=== PATIENT | female | born 1935 | race Caucasian/White ===

== ENCOUNTER → 2016-05-12 | Day surgery (SDC) | payer OTHER ==
[2016-04-29 10:51] VITALS: Ht 170.2 cm; Wt 62.7 kg
[~2016-05-12] VITALS: Ht 170.2 cm; Wt 62.7 kg
[~2016-05-12] MED LIST: 500ML BSS 0.3ML EPI 1:1000PF IRRIG ONE; ACETAMINOPHEN 325 MG TAB PO PRN; AMVISC PLUS 0.8ML SYRINGE INT OCU ONE; ASPI81TA28 PO; ATROPINE SULFATE 0.1 MG/ML 5ML SYR IV PRN; BETAXOLOL HCL 0.25% OP SUSP PER DROP CHARGE OPR SCH; BRIMONIDINE TART 0.2% OP SOLN PER DROP CHARGE ONE; BSS FLUSH ONE; CALC250T8 PO; CHOL1CAP67 PO; CHOL20009 PO; CYAN500T PO; DORZ2SOL17 OPR; ENDOCOAT 0.85ML SYRINGE INT OCU ONE; EpHEDrine SULFATE INJ 50 MG/ML AMP IV PRN; EpINEphrine INJ 1MG/ML AMP 1 MG/ML AMP ONE; LACTATED RINGER'S 1000ML 500 ML IV SCH; LIDOCAINE 4% OP SOLN DROP CHARGE ONE; LIDOCAINE 4% OP SOLN DROP CHARGE OPR SCH; LIDOCAINE HCL 1% MPF 2 ML VIAL ONE; LISI-787 PO; LISI20TA3 PO; LORA-741 PO; METO50TA16 PO; MIDAZOLAM HCL 1 MG/ML 2ML VIAL ONE; MIX: 4ML BSS 1ML EPI 1:1000 PF INSTIL ONE; MOXIFLOXACIN OPH SOLN PER DROP CHARGE ONE; NTRGSL/4 UT; OCUCOAT 1 ML SOLN IO ONE; POVIDONE-IODINE OP SOLN 30 ML BTL ONE; PRAV80TA2 PO; PRD/25 PO; PRED10TA PO; PROPARACAINE 0.5% OP SOLN PER DROP CHARGE OPR SCH; TOBRAMYCIN/DEXAMETHASONE OPH OINT PER APPLN CHARGE ONE
--- NOTE | 2016-05-12 07:36 | History & Physical Bridge - SC ---
H&P Re-Evaluation Bridge Note: I have examined the patient, reviewed the History & Physical and in the interval since the performance of the History & Physical I have noted the following changes of clinical significance: No changes noted
[2016-05-12] MEDS: PHENYLEPHRINE HCL 2.5% OP SOLN PER DROP CHARGE OPR SCH ×2 (07:44→07:49)
[2016-05-12] MEDS: TROPICAMIDE 1% OP SOLN PER DROP CHARGE OPR SCH ×2 (07:45→07:50)
[2016-05-12] MEDS: CYCLOPENTOLATE HCL 1% OP SOLN PER DROP CHARGE OPR SCH ×2 (07:46→07:51)
[2016-05-12] MEDS: MOXIFLOXACIN OPH SOLN PER DROP CHARGE OPR SCH ×2 (07:47→07:57)
--- NOTE | 2016-05-12 08:39 | Discharge Instructions-SurgCtr ---
Discharge Instructions Visit Reason for Visit: Cataract Right Eye Discharge Discharge Diagnosis / Problem: lens implant right eye Discharge Goals Goal(s): Improve function Activity Recommendations Activity Limitations: resume your previous activity Lifting Limitations: no more than 10 pounds Exercise/Sports Limitations: gradually increase as tolerated May Resume Sexual Activity: when tolerated Shower/Bathe: tomorrow Driving or Machine Use: resume 1 day after discharge Anesthesia . Post Anesthesia Instructions: If you have had General Anesthesia or IV Sedation: * Do not drive today. * Resume driving when surgeon permits. * Do not make important decisions or sign legal documents today. * Call surgeon for: 1. Temperature elevations greater than 101 degrees F. 2. Uncontrollable pain. 3. Excessive bleeding. 4. Persistent nausea and vomiting. 5. Medication intolerance (nausea, vomiting or rash). * For nausea and vomiting use only clear liquids such as: tea, soda, bouillon until nausea subsides, then gradually increase diet as tolerated. * If you have any concerns or questions, call your surgeon's office. If physician is unavailable and it is an emergency, call 911 or go to the nearest emergency room. . Instructions / Follow-Up Instructions / Follow-Up ACTIVITY RECOMMENDATIONS: * Light activities. * Mild irritation and blurred vision are common for the first few days. * You may walk outside, read, watch television. * Redness around the white part of the eye is common. MEDICATIONS: Resume previous medications unless instructed otherwise by your surgeon. Start all eye drops at 1 pm today: * Eye drops (today and tomorrow): Prednisone - one drop in operative eye every 3 hours while awake Ofloxacin - one drop in operative eye every 3 hours while awake SPECIAL CARE INSTRUCTIONS: * Tape plastic shield over eye to sleep at night. Call your doctor at with any concerns or problems. FOLLOW UP VISIT: Follow-up with Dr Parsons at [facility] office as scheduled. Diet Recommendations Home Diet: no limitations Procedures Procedures Performed: cataract extraction with lens implant Pending Studies Studies pending at discharge: no Medical Emergencies . Who to Call and When: Medical Emergencies: If at any time you feel your situation is an emergency, please call 911 immediately. . Non-Emergent Contact Non-Emergency issues call your: Facilities Assistant Call Non-Emergent contact if: your pain is not controlled [phone] . . "Provider Documentation" section prepared by Gigi Parsons.
--- NOTE | 2016-05-12 08:40 | [facility] Operative Report ---
Operative Report 1. PREOPERATIVE DIAGNOSIS: Senile nuclear cataract, right eye. 2. POSTOPERATIVE DIAGNOSIS: Senile nuclear cataract, right eye. 3. PROCEDURE: Phacoemulsification of right cataract with posterior chamber lens implant, type [employer], model MX60, power +21.0 diopters. ANESTHESIA: Local standby. SURGEON: Dr. Parsons. COMPLICATIONS: None. OPERATING TIME: 10 minutes. 4. OPERATION AND FINDINGS: DESCRIPTION OF PROCEDURE: The right pupil was dilated. The anesthetic was administered using a topical technique. The right eye was prepped and draped. A speculum was placed. A clear corneal incision was formed. The chamber was filled with Amvisc Plus and Endocoat. Epinephrine solution was used. A paracentesis was placed. A capsulorrhexis was performed. The nucleus was hydrodissected. The lens was removed with phacoemulsification. Time was 4.25 seconds. The aspiration unit was used to remove the cortex. The capsule was filled with Amvisc Plus. The lens implant was folded and placed into the capsule. The incision was hydrated. The Amvisc was aspirated. The wound was secure. The chamber was deep. The pupil was round. TobraDex ointment and Vigamox solution were placed. The speculum was removed. The patient was returned to the Recovery Room in stable condition. I attest to the content of the Intraoperative Record and any orders documented therein. Any exceptions are noted below. The scribe's documentation has been prepared in my presence, under my direction and personally reviewed by me in its entirety. I confirm that the note above accurately reflects all work, treatment, procedures, and medical decision making performed by me. I personally scribed for Gigi Parsons M.D. ([email or web address]) on 05/12/16 at 08:40. Electronically submitted by Caryn Esposito ([email or web address]).
[2016-05-12 08:44] VITALS: TEMP 36.8
[2016-05-12 09:01] VITALS: BP 151/68; PULSE 74; O2SAT 97
--- NOTE | 2016-05-12 09:03 | Anesthesia Progress Nt - [facility] ---
Anesthesia Post Op Note Date & Time May 12, 2016 at 09:04 Vital Signs Pain Intensity: 0 Vital Signs Past 12 Hours Date Time Temp Pulse Resp B/P Pulse Ox O2 Delivery O2 Flow Rate FiO2 05/12/16 08:44 36.8 76 16 130/83 97 Room Air 05/12/16 07:32 36.5 68 22 160/95 98 Room Air Notes Mental Status: alert / awake / arousable, participated in evaluation Pt Amnestic to Procedure: Yes Nausea / Vomiting: adequately controlled Pain: adequately controlled Airway Patency, RR, SpO2: stable & adequate BP & HR: stable & adequate Hydration State: stable & adequate Anesthetic Complications: no major complications apparent
== END | disposition home or self-care (01) ==
LOC: X.SURG 07:11
PROVIDERS: ATTEND Specialist
DX: H25.11 Age-related nuclear cataract, right eye (principal); I10 Essential (primary) hypertension; I25.2 Old myocardial infarction; Z68.21 Body mass index [BMI] 21.0-21.9, adult; Z88.2 Allergy status to sulfonamides

== ENCOUNTER → 2016-05-29 | Outpatient (CLI) | payer OTHER ==
[~2016-05-29] MED LIST changes: -500ML BSS 0.3ML EPI 1:1000PF IRRIG ONE; -ACETAMINOPHEN 325 MG TAB PO PRN; -AMVISC PLUS 0.8ML SYRINGE INT OCU ONE; -ATROPINE SULFATE 0.1 MG/ML 5ML SYR IV PRN; -BETAXOLOL HCL 0.25% OP SUSP PER DROP CHARGE OPR SCH; -BRIMONIDINE TART 0.2% OP SOLN PER DROP CHARGE ONE; -BSS FLUSH ONE; -ENDOCOAT 0.85ML SYRINGE INT OCU ONE; -EpHEDrine SULFATE INJ 50 MG/ML AMP IV PRN; -EpINEphrine INJ 1MG/ML AMP 1 MG/ML AMP ONE; -LACTATED RINGER'S 1000ML 500 ML IV SCH; -LIDOCAINE 4% OP SOLN DROP CHARGE ONE; -LIDOCAINE 4% OP SOLN DROP CHARGE OPR SCH; -LIDOCAINE HCL 1% MPF 2 ML VIAL ONE; -MIDAZOLAM HCL 1 MG/ML 2ML VIAL ONE; -MIX: 4ML BSS 1ML EPI 1:1000 PF INSTIL ONE; -MOXIFLOXACIN OPH SOLN PER DROP CHARGE ONE; -OCUCOAT 1 ML SOLN IO ONE; -POVIDONE-IODINE OP SOLN 30 ML BTL ONE; -PROPARACAINE 0.5% OP SOLN PER DROP CHARGE OPR SCH; -TOBRAMYCIN/DEXAMETHASONE OPH OINT PER APPLN CHARGE ONE
== END ==
LOC: C.LAB 08:01
PROVIDERS: ATTEND Internal Medicine
DX: M35.3 Polymyalgia rheumatica (principal)

== ENCOUNTER → 2016-07-08 | Outpatient (CLI) | payer OTHER | END | disposition home or self-care (01) | LOC: C.LAB 08:07 | PROVIDERS: ATTEND Internal Medicine | DX: M25.50 Pain in unspecified joint (principal); M35.3 Polymyalgia rheumatica; M79.1 Myalgia ==

== ENCOUNTER → 2016-08-20 | Outpatient (CLI) | payer OTHER ==
--- NOTE | 2016-08-20 16:16 | MAMMOGRAPHY REPORT ---
BILATERAL DIGITAL SCREENING MAMMOGRAM WITH CAD: 08/20/2016 CLINICAL HISTORY: Routine screening. Patient has no complaints. TECHNIQUE: Current study was also evaluated with a Computer Aided Detection (CAD) system. Bilateral CC and MLO views were obtained. COMPARISON: Comparison is made to exams dated: 08/12/2015 mammogram, 08/08/2014 mammogram, 07/10/2013 m ammogram, 06/27/2012 mammogram, 06/23/2011 mammogram, and 05/21/2010 mammogram - [facility] er. BREAST COMPOSITION: The tissue of both breasts is heterogeneously dense, which may obscure small mas ses. FINDINGS: No suspicious masses, calcifications, or areas of architectural distortion are noted in ei ther breast. There has been no significant interval change compared to prior exams. Scattered bilater al benign-appearing calcifications are not significantly changed. Nodular asymmetry in the right sup erior posterior breast is stable dating back to at least the 2007 exam. IMPRESSION: ACR BI-RADS CATEGORY 2: BENIGN There is no mammographic evidence of malignancy. A 1 year screening mammogram is recommended. The pa tient will receive written notification of the results. Approximately 10% of breast cancers are not detected with mammography. A negative mammographic report should not delay biopsy if a clinically suggestive mass is present. Briana Jones M.D. /:08/20/2016 15:29:29 Planer Operator: Estela TUCKER(Ailn)(Hui), [facility] letter sent: Normal 1/2 BI-RADS Code: ACR BI-RADS Category 2: Benign
== END | disposition home or self-care (01) ==
LOC: C.MAMM 10:00
PROVIDERS: ATTEND Internal Medicine
DX: Z12.31 Encounter for screening mammogram for malignant neoplasm of breast (principal)

== ENCOUNTER → 2016-09-03 | Outpatient (CLI) | payer OTHER | END | disposition home or self-care (01) | LOC: C.LAB 07:34 | PROVIDERS: ATTEND Internal Medicine | DX: M35.3 Polymyalgia rheumatica (principal) ==

== ENCOUNTER 2016-10-07 07:09 | Emergency (ER) | payer OTHER ==
[~2016-10-07] VITALS: Ht 170.2 cm; Wt 61.5 kg
[~2016-10-07 07:09] MED LIST changes: -CALC250T8 PO; -CHOL1CAP67 PO; -CYAN500T PO; -LISI20TA3 PO; -PRD/25 PO
[2016-10-07 07:12] VITALS: TEMP 36.8; Ht 170.2 cm; Wt 61.5 kg
[2016-10-07 07:43] VITALS: O2SAT 97
[2016-10-07 07:55] LABS: POINT OF CARE TROPONIN I < 0.030 ng/ml (0-0.045)
[2016-10-07] MEDS ORDERED: CYAN500T PO (07:58)
[2016-10-07] MEDS ORDERED: CHOL1CAP67 PO (07:58)
[2016-10-07] MEDS ORDERED: CALC250T8 PO (07:58)
[2016-10-07] MEDS ORDERED: LISI20TA3 PO (07:58)
[2016-10-07 07:59] LABS: ALT/SGPT 18 U/L (12-78); BLOOD UREA NITROGEN 23 mg/dl (7-18); BUN/CREATININE RATIO 21.3 (10-20); CALCIUM 9.5 mg/dl (8.5-10.1); CARBON DIOXIDE 29 mmol/L (21-32); CHLORIDE 106 mmol/L (98-107); GLUCOSE 106 mg/dl (70-99); POTASSIUM 3.9 mmol/L (3.5-5.1); SODIUM 140 mmol/L (136-145)
[2016-10-07] MEDS ORDERED: NTRGSL/4 UT (08:01)
[2016-10-07] MEDS ORDERED: METO50TA16 PO ×2 (08:01)
[2016-10-07] MEDS ORDERED: LISI-787 PO (08:01)
[2016-10-07] MEDS ORDERED: CHOL20009 PO (08:01)
[2016-10-07] MEDS ORDERED: PRD/25 PO (08:02)
--- NOTE | 2016-10-07 08:04 | DIAGNOSTIC IMAGING REPORT ---
CHEST ONE VIEW PORTABLE CLINICAL HISTORY: 81 years-old Female presenting with Evaluate Fever/Sepsis. TECHNIQUE: Portable upright AP view of the chest was obtained. COMPARISON: CT from 2015. FINDINGS: Atherosclerosis of the aortic arch. Prominence of the main pulmonary artery. Mild prominence of pulmonary vasculature. Ill-defined hazy basilar opacities. No effusion or pneumothorax. Sclerotic lesion left humeral head is unchanged prior exam has a somewhat certain margin, indeterminate but stable. Upper abdomen normal. IMPRESSION: 1. Hazy bibasilar opacities. These could represent infection, aspiration, or mild pulmonary edema. 2. Cardiomegaly. Electronically signed by: Brad Whyte M.D. 10/07/2016 8:02 AM Dictated Date/Time: 10/07/2016 8:00 AM
[2016-10-07 08:12] LABS: ALKALINE PHOSPHATASE 75 U/L (45-117); AST/SGOT 17 U/L (15-37); CKMB/CK RATIO 2.8 (0-3.0); HEMATOCRIT 41.8 % (37-47); MEAN CELL VOLUME 91.3 fL (80-100); MEAN CORPUSCULAR HEMOGLOBIN 31.2 pg (25-34); MEAN CORPUSCULAR HGB CONC 34.2 g/dl (32-36); MEAN PLATELET VOLUME 12.7 fL (7.4-10.4); PLATELET COUNT 119 K/uL (130-400); RED BLOOD COUNT 4.58 M/uL (4.2-5.4); WHITE BLOOD COUNT 7.59 K/uL (4.8-10.8)
[2016-10-07 08:13] LABS: INR 0.9 (0.9-1.1)
[2016-10-07 08:24] LABS: BASO % 0.8 %; BASO ABS # 0.06 K/uL (0-0.2); COMPLETE YES; EOS % 0.7 %; IG% 0.1 %; LYMPH % 16.2 %; LYMPH ABS # 1.23 K/uL (1.2-3.4); MONO % 7.1 %; NEUT % 75.1 %
--- NOTE | 2016-10-07 08:56 | DIAGNOSTIC IMAGING REPORT ---
ULTRASOUND RIGHT VENOUS DOPP LOWER EXT UNILAT CLINICAL HISTORY: Right leg pain COMPARISON STUDY: No previous studies for comparison. FINDINGS: Real-time and color flow Doppler imaging were performed. Flow was seen within the femoral, popliteal and calf veins with no intraluminal thrombus demonstrated. The saphenous vein is patent. IMPRESSION: No evidence of right lower extremity DVT. Electronically signed by: Everett Biggs M.D. 10/07/2016 8:55 AM Dictated Date/Time: 10/07/2016 8:53 AM
[2016-10-07] MEDS ORDERED: LISINOPRIL 20 MG TAB PO STA (09:17)
--- NOTE | 2016-10-07 09:48 | EMERGENCY ROOM VISIT NOTE ---
History Report prepared by Echo: Rossana Oden Under the Supervision of: Dr. Kian Washburn D.O. First contact with patient: 07:19 Chief Complaint: HYPERTENSION Stated Complaint: HBP History of Present Illness The patient is an 81 year old female who presents to the Emergency Room with complaints of persistent high blood pressure starting this morning. She has a history of hypertension and is on metoprolol. For the past 2 days, she checked her blood pressure in the morning and it was normal. She checked her blood pressure this morning and found that it was 222 which concerned her. She takes her blood pressure after taking her metoprolol between 0500 and 0700 every morning. Today she took her medications at 0500 because she was unable to sleep well. She had a RI 4 years ago. She does not feel like she is having a RI today. She reports pain on the outside of her right leg and in her right groin for the past week. She was unable to sleep well because of the leg pain. She is currently not having much pain. She notes that she has been pulling weeds which might be contributing to her pain. She denies any fall or injury. She denies any chest pain, SOB, or headache. She has a stent in her heart. Source of History: patient Onset: this morning Position: other (global) Quality: other (high blood pressure) Timing: other (persistent) Associated Symptoms: No headache, No chest pain, No SOB Note: Pt reports right leg pain, right groin pain. Review of Systems See HPI for pertinent positives & negatives. A total of 10 systems reviewed and were otherwise negative. Past Medical & Surgical Medical Problems: (1) CAD (coronary artery disease) (2) ESOPHAGEAL REFLUX (3) HYPERTENSION NOS (4) RI (myocardial infarction) Family History Cancer Hypertension Social History Smoking Status: Never Smoker Alcohol Use: none Drug Use: none Marital Status: Housing Status: lives with family Occupation Status: retired Current/Historical Medications Scheduled Aspirin (Aspirin Ec), 81 MG PO QAM Calcium Citrate (Calcium Citrate), 1 TAB PO DAILY Cholecalciferol (Vitamin D), 1 TAB PO HS Cyanocobalamin (Vitamin B-12), 500 MCG PO DAILY Lisinopril/Hctz (Zestoretic 20MG/12.5MG), 1 TAB PO QAM Metoprolol Tartrate (Lopressor) (Lopressor), 50 MG PO QPM Metoprolol Tartrate (Lopressor) (Lopressor), 100 MG PO QAM Nitroglycerin (Nitrostat), 0.4 MG UT PRN Pravastatin Sodium (Pravastatin Sodium), 80 MG PO HS Prednisone (Prednisone), 2.5 MG PO Q2D Prednisone Tab (Prednisone), 10 MG PO Q2D Scheduled PRN Lorazepam (Ativan), 0.5 MG PO HS PRN for Sleep Allergies Coded Allergies: Adhesives (Verified Allergy, Unknown, IRRITATION, 05/12/16) Sulfa Antibiotics (Verified Allergy, Unknown, ? REMEMBER, 05/12/16) Codeine (Verified Adverse Reaction, Unknown, LONG FEELING ARMS, 05/12/16) Lovastatin (Verified Adverse Reaction, Unknown, MYALGIA AND WEAKNESS, 05/12) Uncoded Allergies: EYE DROP (Allergy, Unknown, SAW THINGS ON THE WALL, UNSURE OF NAME FROM DR HALL, 04/29/16) Physical Exam Vital Signs Date Time Temp Pulse Resp B/P (MAP) Pulse Ox O2 Delivery O2 Flow Rate FiO2 10/07/16 09:19 76 20 208/92 98 Room Air 10/07/16 08:16 66 17 169/79 96 Room Air 10/07/16 07:43 97 Room Air 10/07/16 07:29 77 19 201/90 97 Room Air 10/07/16 07:27 78 10/07/16 07:12 36.8 74 18 189/87 96 Room Air Physical Exam CONSTITUTIONAL/VITAL SIGNS: Reviewed / noted above. GENERAL: Non-toxic in appearance. INTEGUMENTARY: Warm, dry, and [place]. HEAD: Normocephalic. EYES: without scleral icterus or trauma. ENT/OROPHARYNX: clear and moist. LYMPHADENOPATHY/NECK: Is supple without lymphadenopathy or meningismus. RESPIRATORY: Lungs clear and equal. CARDIOVASCULAR: Regular rate and rhythm. GI/ABDOMEN: Soft and nontender. No organomegaly or pulsatile mass. No rebound or guarding. Normal bowel sounds. EXTREMITIES: No appreciated redness, swelling, or bony abnormality in the right leg, essentially normal exam. BACK: No CVA tenderness. NEUROLOGICAL: Intact without focal deficits. PSYCHIATRIC: normal affect. MUSCULOSKELETAL: Normally developed with good muscle tone. Medical Decision & Procedures ER Provider Diagnostic Interpretation: X ray results and stated below per my interpretation and radiology interpretation. Radiology results as stated below per my review and radiologist interpretation: CHEST ONE VIEW PORTABLE CLINICAL HISTORY: 81 years-old Female presenting with Evaluate Fever/Sepsis. TECHNIQUE: Portable upright AP view of the chest was obtained. COMPARISON: CT from 2014. FINDINGS: Atherosclerosis of the aortic arch. Prominence of the main pulmonary artery. Mild prominence of pulmonary vasculature. Ill-defined hazy basilar opacities. No effusion or pneumothorax. Sclerotic lesion left humeral head is unchanged prior exam has a somewhat certain margin, indeterminate but stable. Upper abdomen normal. IMPRESSION: 1. Hazy bibasilar opacities. These could represent infection, aspiration, or mild pulmonary edema. 2. Cardiomegaly. Electronically signed by: Brad Whyte M.D. 10/07/2016 8:02 AM Dictated Date/Time: 10/07/2016 8:00 AM ULTRASOUND RIGHT VENOUS DOPP LOWER EXT UNILAT CLINICAL HISTORY: Right leg pain COMPARISON STUDY: No previous studies for comparison. FINDINGS: Real-time and color flow Doppler imaging were performed. Flow was seen within the femoral, popliteal and calf veins with no intraluminal thrombus demonstrated. The saphenous vein is patent. IMPRESSION: No evidence of right lower extremity DVT. Electronically signed by: Everett Biggs M.D. 10/07/2016 8:55 AM Dictated Date/Time: 10/07/2016 8:53 AM Laboratory Results 10/07/16 07:25 Red Blood Count 4.58, Mean Corpuscular Volume 91.3, Mean Corpuscular Hemoglobin 31.2, Mean Corpuscular Hemoglobin Concent 34.2, Mean Platelet Volume 12.7, Neutrophils (%) (Auto) 75.1, Lymphocytes (%) (Auto) 16.2, Monocytes (%) (Auto) 7.1, Eosinophils (%) (Auto) 0.7, Basophils (%) (Auto) 0.8, Neutrophils # (Auto) 5.70, Lymphocytes # (Auto) 1.23, Monocytes # (Auto) 0.54, Eosinophils # (Auto) 0.05, Basophils # (Auto) 0.06 10/07/16 07:25 Test 10/07/16 07:25 10/07/16 07:36 White Blood Count 7.59 K/uL (4.8-10.8) Red Blood Count 4.58 M/uL (4.2-5.4) Hemoglobin 14.3 g/dL (12.0-16.0) Hematocrit 41.8 % (37-47) Mean Corpuscular Volume 91.3 fL (80-100) Mean Corpuscular Hemoglobin 31.2 pg (25-34) Mean Corpuscular Hemoglobin Concent 34.2 g/dl (32-36) Platelet Count 119 K/uL (130-400) Mean Platelet Volume 12.7 fL (7.4-10.4) Neutrophils (%) (Auto) 75.1 % Lymphocytes (%) (Auto) 16.2 % Monocytes (%) (Auto) 7.1 % Eosinophils (%) (Auto) 0.7 % Basophils (%) (Auto) 0.8 % Neutrophils # (Auto) 5.70 K/uL (1.4-6.5) Lymphocytes # (Auto) 1.23 K/uL (1.2-3.4) Monocytes # (Auto) 0.54 K/uL (0.11-0.59) Eosinophils # (Auto) 0.05 K/uL (0-0.5) Basophils # (Auto) 0.06 K/uL (0-0.2) RDW Standard Deviation 43.0 fL (36.4-46.3) RDW Coefficient of Variation 12.9 % (11.5-14.5) Immature Granulocyte % (Auto) 0.1 % Immature Granulocyte # (Auto) 0.01 K/uL (0.00-0.02) Prothrombin Time 10.0 SECONDS (9.0-12.0) Prothromb Time International Ratio 0.9 (0.9-1.1) Activated Partial Thromboplast Time 25.9 SECONDS (21.0-31.0) Partial Thromboplastin Ratio 1.0 Anion Gap 5.0 mmol/L (3-11) Est Creatinine Clear Calc Drug Dose 37.6 ml/min Estimated GFR () 53.8 Estimated GFR (Non- 46.4 BUN/Creatinine Ratio 21.3 (10-20) Calcium Level 9.5 mg/dl (8.5-10.1) Total Bilirubin 0.9 mg/dl (0.2-1) Direct Bilirubin 0.1 mg/dl (0-0.2) Aspartate Amino Transf (AST/SGOT) 17 U/L (15-37) Alanine Aminotransferase (ALT/SGPT) 18 U/L (12-78) Alkaline Phosphatase 75 U/L (45-117) Total Creatine Kinase 47 U/L (26-192) Creatine Kinase MB 1.3 ng/ml (0.5-3.6) Creatine Kinase MB Ratio 2.8 (0-3.0) Troponin I < 0.015 ng/ml (0-0.045) Total Protein 7.8 gm/dl (6.4-8.2) Albumin 3.6 gm/dl (3.4-5.0) Lipase 134 U/L (73-393) Thyroid Stimulating Hormone (TSH) 2.360 uIu/ml (0.300-4.500) Bedside D-Dimer > 450 ng/mlFEU (0-450) Bedside Troponin I < 0.030 ng/ml (0-0.045) Laboratory results as stated above per my review. Medications Administered Medications (Trade) Dose Ordered Sig/Yue Route Start Time Stop Time Status Last Admin Dose Admin Lisinopril (Zestril Tab) 20 mg NOW STAT PO 10/07/16 09:17 10/07/16 09:19 DC 10/07/16 09:29 20 MG ECG Indication: other (high blood pressure) Rate (beats per minute): 73 Rhythm: sinus rhythm Findings: PAC, no ectopy, other (no acute injury) ED Course 07: Previous medical records were reviewed. The patient was evaluated in room B3B. A complete history and physical examination was performed. 0913: On reevaluation, the patient is resting comfortably. I discussed the results and findings with the patient. She verbalized agreement of the treatment plan. She was discharged home. 0917: Lisinopril 20 mg PO. 0934: I discussed the patient's case with Dr. Brad Marshall, [facility] internal medicine. She will follow up with him as an outpatient. Medical Decision Differential diagnosis: Etiologies such as DVT, musculoskeletal, infection, joint effusion, trauma, lymphedema, idiopathic, CHF, as well as others were entertained. This is a 81-year-old female who presents to the ED with a chief complaint of hypertension. The patient states that she checked her blood pressure yesterday and it was normal. She checked it the day before that and it was normal as well. The patient states that when she checked her blood pressure this morning , it was elevated. She states that it was around 222 on the top number. The patient denies any other symptoms. She has been experiencing some pain in the right lateral malleolus and in the right groin area for the past week or more. She states that she has been pulling weeds for over a month and she feels that these pains might be related to that. Patient denies any other significant symptoms. She denies any headaches, chest pains, shortness of breath, fevers or recent illness. She is not had a cough. She denies any abdominal pain or extremity swelling. Her initial blood pressure here was elevated. It remained elevated during her ED stay. The lowest blood pressure she had was 169/79. She appears to be slightly anxious. She is in no distress. A twelve-lead EKG reveals a normal sinus rhythm at a rate of 73. Her CBC is normal. D-dimer was elevated. Ultrasound of the right lower extremity did not reveal DVT. Her exam of her right lower extremity did not reveal any obvious abnormalities. The BUN is 23. Troponin was negative. TSH was normal. Chest x-ray, per the radiologist reveals some haziness in the bilateral lateral basis. The patient on clinical exam does not have any abnormal findings on her lung exam. The bases of her lungs are clear. She has no rales or rhonchi. Her SATURATIONS were 96% on room air. I suspect this is an over read. The patient was given an dose of lisinopril just prior to discharge. I spoke with Brad Marshall about the patient. He will recheck her blood pressure tomorrow in the office. Medication Reconcilliation Current Medication List: was personally reviewed by me Blood Pressure Screening Patient's blood pressure: Elevated blood pressure Blood pressure disposition: Referred to PCP Consults Time Called: [phone] Consulting Physician: Dr. Brad Marshall, [facility] internal medicine Returned Call: [phone] I discussed the patient's case with him. She will follow up with him as an outpatient. Impression Primary Impression: HYPERTENSION NOS Additional Impression: Right leg pain Scribe Attestation The scribe's documentation has been prepared under my direction and personally reviewed by me in its entirety. I confirm that the note above accurately reflects all work, treatment, procedures, and medical decision making performed by me. Departure Information Dispostion Home / Self-Care Referrals Brad Marshall M.D. (PCP) Patient Instructions Hypertension Control, My [facility] Additional Instructions Call Dr. Mancini's office tomorrow morning to have your blood pressure rechecked tomorrow in the office. Return for any concerns or worsening. Take your medication as prescribed. Problem Qualifiers
[2016-10-07 10:12] VITALS: BP 178/80; PULSE 68; O2SAT 97
== END 2016-10-07 10:54 | disposition home or self-care (01) ==
LOC: C.EDB 07:10
DX: I10 Essential (primary) hypertension (principal); M79.604 Pain in right leg; I25.2 Old myocardial infarction; I25.10 Atherosclerotic heart disease of native coronary artery without angina pectoris; K21.9 Gastro-esophageal reflux disease without esophagitis; Z79.82 Long term (current) use of aspirin; Z82.49 Family history of ischemic heart disease and other diseases of the circulatory system; Z95.5 Presence of coronary angioplasty implant and graft

== ENCOUNTER → 2016-12-07 | Outpatient (CLI) | payer OTHER ==
[~2016-12-07] MED LIST changes: +CALC250T8 PO; +CYAN500T PO; -DORZ2SOL17 OPR; +PRD/25 PO
[2016-12-07 09:38] LABS: MEAN CELL VOLUME 93.9 fL (80-100); RED BLOOD COUNT 4.58 M/uL (4.2-5.4); WHITE BLOOD COUNT 5.31 K/uL (4.8-10.8)
[2016-12-07 09:52] LABS: BASO % 0.8 %; BASO ABS # 0.04 K/uL (0-0.2); COMPLETE YES; EOS % 1.1 %; IG% 0.2 %; LYMPH % 19.4 %; LYMPH ABS # 1.03 K/uL (1.2-3.4); MEAN PLATELET VOLUME 13.1 fL (7.4-10.4); MONO % 8.5 %; PLATELET COUNT 113 K/uL (130-400); PLT ESTIMATE DECREASED
[2016-12-07 10:05] LABS: ALT/SGPT 17 U/L (12-78); BLOOD UREA NITROGEN 17 mg/dl (7-18); BUN/CREATININE RATIO 17.8 (10-20); CALCIUM 9.6 mg/dl (8.5-10.1); CARBON DIOXIDE 29 mmol/L (21-32); CHLORIDE 105 mmol/L (98-107); CHOLESTEROL 194 mg/dl (0-200); CREATININE 0.93 mg/dl (0.60-1.20); GLUCOSE 99 mg/dl (70-99); SODIUM 140 mmol/L (136-145); TRIGLYCERIDES 196 mg/dl (0-150); VERY LOW DENSITY LIPOPROT CALC 39 mg/dl
[2016-12-07 10:15] LABS: ALB/GLOB RATIO 0.9 (0.9-2); ALKALINE PHOSPHATASE 69 U/L (45-117); AST/SGOT 18 U/L (15-37); CHOLESTEROL/HDL RATIO 4.9; HDL CHOLESTEROL 40 mg/dl; LDL CHOLESTEROL CALCULATED 115 mg/dl
== END | disposition home or self-care (01) ==
LOC: C.LAB1850 08:21
PROVIDERS: ATTEND Internal Medicine Cardiovascular Disease
DX: R53.83 Other fatigue (principal)

== ENCOUNTER 2022-01-11 16:35 | Inpatient (IN) ==
--- NOTE | 2022-01-11 16:58 | Emergency Department Note ---
Impression & Plan Atrial fibrillation with RVR ADMIT ED Provider Note HPI: The patient is an 86-year-old female with history of dementia, presents the emergency department with report of not eating or drinking well recently. On arrival here to the ED the patient on my initial assessment is noted to be tachycardic in the 140s, she is slightly hypertensive in the 150s systolic, she is saturating at 92% on nasal cannula oxygen. Patient is not able to provide me with any history but she is alert on arrival. ROS: -Neuro: Altered mental status -General: Progressive decline at home, patient with known dementia -Cardio: Tachycardia *10 point review systems was conducted and is otherwise negative unless stated above *Outpatient medications and allergy history reviewed PE: General: Alert, frail-appearing, confused HEENT: Normocephalic, trachea midline Eyes: Extraocular eye movement is intact, no scleral erythema Pulmonary: Clear to auscultation bilaterally, no wheezing Cardio: Tachycardic rate with a regular rhythm GI: Abdomen is soft, nontender : No suprapubic tenderness MSK: No evidence of trauma or malformation of the extremities, no edema Skin: No evidence of rash Neuro: Alert, no focal deficits, ambulates extremities spontaneously 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 states that the patient has not been getting out of bed much over the past couple of days, she has not been eating or drinking very much, she has been coughing. On my initial assessment the patient is tachycardic with a regular rhythm on the monitor, blood pressure is actually slightly hypertensive therefore she was given a diltiazem bolus with good improvement in her heart rate into the low 100s. Blood pressure remained stable. Lab work was initiated, lactic acid is slightly elevated at 2.1, patient does have baseline thrombocytopenia and platelet count is noted to be 68 today, there is no leukocytosis, hemoglobin is stable. Troponin slightly elevated at 27.7, suspect this is demand ischemia in the setting of atrial fibrillation with RVR. EKG does not show any ST elevation NE. CT imaging of the head was obtained that shows no evidence of acute intracranial bleeding. Patient's chest x-ray suggestive of pneumonia in the left base. Patient was ordered 1 L of IV fluids but none further secondary to hypertension and improvement in tachycardia with IV rate control medications. Patient was treated with azithromycin and ceftriaxone for left basilar pneumonia. She is stable on 1 L nasal cannula oxygen, remains tachycardic in the low 100s but heart rate is improved from presentation. I did discuss the patient's illness with her at the bedside, he does assure me that the patient is DNR/DNI but okay for interventions up to that point at this time. Patient's and other family member at the bedside are in agreement for the patient to be admitted and the patient was admitted in improved condition for further care, [facility] hospitalist service was consulted for admission. * CRITICAL CARE TIME: ( 45 ) minutes -Stabilization of tachyarrhythmia requiring IV rate control medications for improvement, time spent at the bedside, interpretation of diagnostic studies and EKG, discussion with other healthcare providers and arrangement of admission Diagnosis: 1. Atrial fibrillation with RVR, new onset atrial fibrillation 2. Left basilar pneumonia, community-acquired 3. Lactic acidosis, mild 4. Acute confusion in the setting of underlying dementia 5. Elevated procalcitonin 6. Elevated high-sensitivity troponin Disposition: Admission Parish Barton DO Emergency Medicine Past Med/Surg History Medical History (Updated 01/12/22 @ 00:05 by Jennifer West) CAD (coronary artery disease) CAD (coronary artery disease) Cerebrovascular small vessel disease Chest pain Chronic ITP (idiopathic thrombocytopenia) Chronic steroid use CKD (chronic kidney disease), stage III Hypertension NE (myocardial infarction) Myocardial infarction Polymyalgia rheumatica Surgical History H/O colonoscopy H/O removal of cyst excision of Right sebaceous cyst 2014 and 2018 History of incision and drainage Hx of cardiac cath cath stent 1 proximal circumflex Family History Sister Colon cancer Other Breast cancer Denies family history of Ovarian cancer Prostate cancer Lung cancer Colorectal cancer Social History Smoking Status: Unknown if ever smoked Second Hand Exposure: No; Preferred Language: Divehi Communication Ability: Impaired Communication Ability Comment: unable to respond d/t AMS Visual Impairment: Limited Hearing Ability: Use of Hearing Aid 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 Beliefs That Will Affect Care: None marital status: Current Living Situation: Spouse current occupational status: retired How many Children do You have: 0 Feels Safe at Home: Yes Safety Concerns Comment: Feels unsafe with some of her neighbors Childhood Exposure to Second-Hand Smoke: Yes caffeine: Yes (two cups of coffee daily ) Dental Care, Regularly: No Physical Activity Frequency: Does not Exercise Seatbelt Use: always Sunscreen Use: No Assistive Devices: Cane Assistive Devices Comment: uses a cane sometimes Allergies Allergies Allergy/AdvReac Type Severity Reaction Status Date / Time adhesive Allergy Mild IRRITATION Verified 01/11/22 20:28 Sulfa (Sulfonamide Allergy Unknown ? REMEMBER Verified 01/11/22 20:28 Antibiotics) codeine AdvReac Intermediate LONG Verified 01/11/22 20:28 FEELING ARMS lovastatin AdvReac Intermediate MYALGIA Verified 01/11/22 20:28 AND WEAKNESS lorazepam AdvReac Mild itching Verified 01/11/22 20:28 Home Meds Home Medications Medication Instructions Recorded Confirmed nitroglycerin 0.4 mg sublingual 0.4 mg sublingual UD PRN Chest Pain 02/25/18 01/11/22 tablet (Nitrostat) cholecalciferol (vitamin D3) 50 2,000 units PO DAILY 12/13/18 01/11/22 mcg (2,000 unit) capsule Previous Rx's Medication Instructions Recorded polyethylene glycol 400 0.25 % eye 0.25 % ophthalmic (eye) DAILY #30 07/06/19 drops (Blink Tears) mL vitamin B complex (B 1 tab PO DAILY #30 tabs 07/06/19 Complex-Vitamin B12 tablet) pimavanserin 34 mg capsule 34 mg PO DAILY #30 caps 12/20/19 (Nuplazid) metoprolol tartrate 50 mg tablet See Rx Instructions .Route 03/03/21 .COMPLEX #180 tabs pravastatin 80 mg tablet 80 mg PO DAILY #90 tabs 06/03/21 lisinopril 20 mg tablet 20 mg PO DAILY #90 tabs 12/16/21 Results & Data (ED) Vital Signs Vital Signs - 24 hr 01/11/22 17:17 01/11/22 17:09 01/11/22 17:15 Temperature 36.7 C Temperature Source Oral Pulse Rate 135 H 149 H 161 H Pulse Rate from SpO2 Sensor 142 H 155 H Pulse Rhythm Regular Pulse Strength Normal Respiratory Rate 20 25 H 23 Respiratory Effort / Characteristics Non-Labored Spontaneous Respiratory Depth Normal Respiratory Pattern Regular Blood Pressure 158/131 H Blood Pressure Mean 140 Blood Pressure Position Lying Pulse Oximetry 93 93 95 Oxygen Delivery Method Nasal Cannula Oxygen Flow Rate 1 Sepsis Recent Fever Within 48 Hours Yes Sepsis New/Unexplained Change in Mental Status N/A Sepsis Action Taken by Nursing Physician Notified 01/11/22 17:27 01/11/22 17:27 01/11/22 17:54 Temperature Temperature Source Pulse Rate 115 H 122 H Pulse Rate from SpO2 Sensor 123 H Pulse Rhythm Pulse Strength Respiratory Rate 21 Respiratory Effort / Characteristics Respiratory Depth Respiratory Pattern Blood Pressure 155/95 H 149/75 H Blood Pressure Mean 115 Blood Pressure Position Pulse Oximetry 96 Oxygen Delivery Method Oxygen Flow Rate Sepsis Recent Fever Within 48 Hours Sepsis New/Unexplained Change in Mental Status Sepsis Action Taken by Nursing 01/11/22 17:30 01/11/22 17:30 01/11/22 17:45 Temperature Temperature Source Pulse Rate 121 H Pulse Rate from SpO2 Sensor 123 H Pulse Rhythm Pulse Strength Respiratory Rate 21 Respiratory Effort / Characteristics Respiratory Depth Respiratory Pattern Blood Pressure 188/90 H 147/114 H Blood Pressure Mean 122 125 Blood Pressure Position Pulse Oximetry 94 Oxygen Delivery Method Oxygen Flow Rate Sepsis Recent Fever Within 48 Hours Sepsis New/Unexplained Change in Mental Status Sepsis Action Taken by Nursing 01/11/22 17:45 01/11/22 17:55 01/11/22 17:55 Temperature Temperature Source Pulse Rate 119 H 133 H Pulse Rate from SpO2 Sensor 121 H 142 H Pulse Rhythm Pulse Strength Respiratory Rate 21 23 Respiratory Effort / Characteristics Respiratory Depth Respiratory Pattern Blood Pressure 149/75 H Blood Pressure Mean 99 Blood Pressure Position Pulse Oximetry 97 95 Oxygen Delivery Method Oxygen Flow Rate Sepsis Recent Fever Within 48 Hours Sepsis New/Unexplained Change in Mental Status Sepsis Action Taken by Nursing 01/11/22 18:00 01/11/22 18:00 01/11/22 19:19 Temperature Temperature Source Pulse Rate 101 H Pulse Rate from SpO2 Sensor 109 H Pulse Rhythm Pulse Strength Respiratory Rate 28 H Respiratory Effort / Characteristics Respiratory Depth Respiratory Pattern Blood Pressure 146/78 H Blood Pressure Mean 100 Blood Pressure Position Pulse Oximetry 96 96 Oxygen Delivery Method Room Air Oxygen Flow Rate Sepsis Recent Fever Within 48 Hours Sepsis New/Unexplained Change in Mental Status Sepsis Action Taken by Nursing 01/11/22 19:06 Temperature Temperature Source Pulse Rate 114 H Pulse Rate from SpO2 Sensor Pulse Rhythm Pulse Strength Respiratory Rate 16 Respiratory Effort / Characteristics Respiratory Depth Respiratory Pattern Blood Pressure 177/97 H Blood Pressure Mean 123 Blood Pressure Position Pulse Oximetry 95 Oxygen Delivery Method Nasal Cannula Oxygen Flow Rate 4 Sepsis Recent Fever Within 48 Hours Sepsis New/Unexplained Change in Mental Status Sepsis Action Taken by Nursing Laboratory Data Result diagrams: 01/12/22 06:41 01/12/22 06:41 Lab Results 01/11/22 01/11/22 01/11/22 Range/Units 17:00 17:00 17:00 WBC 7.97 (4.8-10.8) K/ul RBC 5.26 H (3.93-5.22) M/uL Hgb 16.7 H (12.0-16.0) g/dl Hct 47.7 H (34.1-44.9) % MCV 90.7 (80.0-100.0) fL MCH 31.7 (25.0-34.0) pg MCHC 35.0 (32.0-36.0) g/dL RDW Std Deviation 44.2 (36.4-46.3) fL RDW Coeff of [place] 13.3 (11.5-14.5) % Plt Count 68 L (130-400) K/uL MPV 13.3 H (9.4-12.3) fL Immature Gran % (Auto) 0.3 % Neut % (Auto) 82.7 % Lymph % (Auto) 6.4 % [place] % (Auto) 10.3 % Eos % (Auto) 0.0 % Baso % (Auto) 0.3 % Neut # (Auto) 6.60 H (1.4-6.5) K/uL Lymph # (Auto) 0.51 L (1.2-3.4) K/uL [place] # (Auto) 0.82 (0.24-0.82) K/uL Eos # (Auto) 0.00 (0-0.50) K/uL Baso # (Auto) 0.02 (0-0.2) K/uL Immature Gran # (Auto) 0.02 (0.00-0.02) K/uL Platelet Estimate Decreased L (Normal) Sodium 135 L (136-145) mmol/L Potassium 3.5 (3.5-5.1) mmol/L Chloride 99 (98-107) mmol/L Carbon Dioxide 23 (21-32) mmol/L Anion Gap 13 H (3-11) BUN 20 (6-23) mg/dl Creatinine 1.03 (0.6-1.2) mg/dl Est Cr Clr Drug Dosing Not Reportable Est GFR ( Amer) 56.2 ml/min Est GFR (Non-Af Amer) 48.5 ml/min BUN/Creatinine Ratio 19.4 (10-20) Glucose 135 H (70-99(Fasting)) mg/dl Lactate 2.1 H* (0.4-2.0) mmol/L Calcium 9.4 (8.5-10.1) mg/dl Magnesium 1.7 (1.7-2.4) mg/dl Total Bilirubin 1.7 H (0.2-1.0) mg/dl Direct Bilirubin 0.2 (0-0.2) mg/dl AST 40 H (13-39) U/L ALT 21 (7-52) U/L Alkaline Phosphatase 77 (34-104) U/L Troponin I High Sens 27.7 H (0-14) pg/ml Total Protein 8.2 (6.0-8.3) gm/dl Albumin 3.9 (3.4-5.0) gm/dl Procalcitonin (0-0.5) ng/ml Urine Color Urine Appearance (Clear) Urine pH (4.5-7.5) Ur Specific [place] (1.000-1.030) Urine Protein (Negative) Urine Glucose (UA) (Negative) Urine Ketones (Negative) Urine Blood (Negative) Urine Nitrite (Negative) Urine Bilirubin (Negative) Urine Urobilinogen (Negative) Ur Leukocyte Esterase (Negative) Urine WBC (Auto) (0-5) /hpf Urine RBC (Auto) (0-4) /hpf U Hyaline Cast (Auto) (0-5) /lpf U Epithel Cells (Auto) (0-5) /lpf Urine Bacteria (Auto) (Negative) Urine Yeast SARS-CoV-2 (PCR) (Negative) Influenza Type A (PCR) (Neg) Influenza Type B (PCR) (Neg) RSV (RT-PCR) (Neg) 01/11/22 01/11/22 01/11/22 Range/Units 17:00 19:00 19:10 WBC (4.8-10.8) K/ul RBC (3.93-5.22) M/uL Hgb (12.0-16.0) g/dl Hct (34.1-44.9) % MCV (80.0-100.0) fL MCH (25.0-34.0) pg MCHC (32.0-36.0) g/dL RDW Std Deviation (36.4-46.3) fL RDW Coeff of [place] (11.5-14.5) % Plt Count (130-400) K/uL MPV (9.4-12.3) fL Immature Gran % (Auto) % Neut % (Auto) % Lymph % (Auto) % [place] % (Auto) % Eos % (Auto) % Baso % (Auto) % Neut # (Auto) (1.4-6.5) K/uL Lymph # (Auto) (1.2-3.4) K/uL [place] # (Auto) (0.24-0.82) K/uL Eos # (Auto) (0-0.50) K/uL Baso # (Auto) (0-0.2) K/uL Immature Gran # (Auto) (0.00-0.02) K/uL Platelet Estimate (Normal) Sodium (136-145) mmol/L Potassium (3.5-5.1) mmol/L Chloride (98-107) mmol/L Carbon Dioxide (21-32) mmol/L Anion Gap (3-11) BUN (6-23) mg/dl Creatinine (0.6-1.2) mg/dl Est Cr Clr Drug Dosing Est GFR ( Amer) ml/min Est GFR (Non-Af Amer) ml/min BUN/Creatinine Ratio (10-20) Glucose (70-99(Fasting)) mg/dl Lactate (0.4-2.0) mmol/L Calcium (8.5-10.1) mg/dl Magnesium (1.7-2.4) mg/dl Total Bilirubin (0.2-1.0) mg/dl Direct Bilirubin (0-0.2) mg/dl AST (13-39) U/L ALT (7-52) U/L Alkaline Phosphatase (34-104) U/L Troponin I High Sens (0-14) pg/ml Total Protein (6.0-8.3) gm/dl Albumin (3.4-5.0) gm/dl Procalcitonin 7.82 H (0-0.5) ng/ml Urine Color Yellow Urine Appearance Clear (Clear) Urine pH 5.0 (4.5-7.5) Ur Specific [place] 1.018 (1.000-1.030) Urine Protein 3+ H (Negative) Urine Glucose (UA) Negative (Negative) Urine Ketones 1+ H (Negative) Urine Blood 2+ H (Negative) Urine Nitrite Negative (Negative) Urine Bilirubin Negative (Negative) Urine Urobilinogen Negative (Negative) Ur Leukocyte Esterase Negative (Negative) Urine WBC (Auto) 1-5 (0-5) /hpf Urine RBC (Auto) 0-4 (0-4) /hpf U Hyaline Cast (Auto) 1-5 (0-5) /lpf U Epithel Cells (Auto) 20-30 H (0-5) /lpf Urine Bacteria (Auto) Negative (Negative) Urine Yeast Not Reportable SARS-CoV-2 (PCR) POSITIVE A* (Negative) Influenza Type A (PCR) Negative (Neg) Influenza Type B (PCR) Negative (Neg) RSV (RT-PCR) Negative (Neg) 01/11/22 Range/Units 19:12 WBC (4.8-10.8) K/ul RBC (3.93-5.22) M/uL Hgb (12.0-16.0) g/dl Hct (34.1-44.9) % MCV (80.0-100.0) fL MCH (25.0-34.0) pg MCHC (32.0-36.0) g/dL RDW Std Deviation (36.4-46.3) fL RDW Coeff of [place] (11.5-14.5) % Plt Count (130-400) K/uL MPV (9.4-12.3) fL Immature Gran % (Auto) % Neut % (Auto) % Lymph % (Auto) % [place] % (Auto) % Eos % (Auto) % Baso % (Auto) % Neut # (Auto) (1.4-6.5) K/uL Lymph # (Auto) (1.2-3.4) K/uL [place] # (Auto) (0.24-0.82) K/uL Eos # (Auto) (0-0.50) K/uL Baso # (Auto) (0-0.2) K/uL Immature Gran # (Auto) (0.00-0.02) K/uL Platelet Estimate (Normal) Sodium (136-145) mmol/L Potassium (3.5-5.1) mmol/L Chloride (98-107) mmol/L Carbon Dioxide (21-32) mmol/L Anion Gap (3-11) BUN (6-23) mg/dl Creatinine (0.6-1.2) mg/dl Est Cr Clr Drug Dosing Est GFR ( Amer) ml/min Est GFR (Non-Af Amer) ml/min BUN/Creatinine Ratio (10-20) Glucose (70-99(Fasting)) mg/dl Lactate 2.1 H* (0.4-2.0) mmol/L Calcium (8.5-10.1) mg/dl Magnesium (1.7-2.4) mg/dl Total Bilirubin (0.2-1.0) mg/dl Direct Bilirubin (0-0.2) mg/dl AST (13-39) U/L ALT (7-52) U/L Alkaline Phosphatase (34-104) U/L Troponin I High Sens (0-14) pg/ml Total Protein (6.0-8.3) gm/dl Albumin (3.4-5.0) gm/dl Procalcitonin (0-0.5) ng/ml Urine Color Urine Appearance (Clear) Urine pH (4.5-7.5) Ur Specific [place] (1.000-1.030) Urine Protein (Negative) Urine Glucose (UA) (Negative) Urine Ketones (Negative) Urine Blood (Negative) Urine Nitrite (Negative) Urine Bilirubin (Negative) Urine Urobilinogen (Negative) Ur Leukocyte Esterase (Negative) Urine WBC (Auto) (0-5) /hpf Urine RBC (Auto) (0-4) /hpf U Hyaline Cast (Auto) (0-5) /lpf U Epithel Cells (Auto) (0-5) /lpf Urine Bacteria (Auto) (Negative) Urine Yeast SARS-CoV-2 (PCR) (Negative) Influenza Type A (PCR) (Neg) Influenza Type B (PCR) (Neg) RSV (RT-PCR) (Neg) Administered Medications Albuterol (Albut/Ipratrop 3mg/0.5mg Neb 3 Ml Vial) 3 ml NEB Q4R TRE; Protocol Stop: 02/11/22 17:59 Last Admin: 01/12/22 18:27 Dose: Not Given Documented By: Admin: 01/12/22 18:24 Dose: 3 ml Documented By: [facility] Ampicillin Sodium/Sulbactam Sodium 3,000 mg/ Sodium Chloride 108 mls @ 200 mls/hr IV Q6H [facility]; Protocol Stop: 01/19/22 00:00 Last Infusion: 01/12/22 19:09 Dose: 0 mls/hr Documented By: Admin: 01/12/22 18:36 Dose: 200 mls/hr Documented By: Infusion: 01/12/22 14:06 Dose: 0 mls/hr Documented By: Admin: 01/12/22 13:27 Dose: 200 mls/hr Documented By: Infusion: 01/12/22 06:53 Dose: 0 mls/hr Documented By: Admin: 01/12/22 06:03 Dose: 200 mls/hr Documented By: Infusion: 01/12/22 01:40 Dose: 0 mls/hr Documented By: Admin: 01/12/22 00:51 Dose: 200 mls/hr Documented By: HORACIO Dexamethasone 6 mg/ Syringe 1.5 mls @ 1 mls/min IV DAILY TRE Stop: 01/22/22 08:59 Last Admin: 01/12/22 09:57 Dose: 1 mls/min Documented By: ED Azithromycin 500 mg/ Dextrose 255 mls @ 127.5 mls/hr IV Q24H [facility] Stop: 01/19/22 10:59 Last Infusion: 01/12/22 16:09 Dose: 0 mls/hr Documented By: Admin: 01/12/22 13:27 Dose: 127.5 mls/hr Documented By: RUSS Pantoprazole Sodium 40 mg/ (Syringe) 10 mls @ 5 mls/min IV DAILY@1100 [facility] Stop: 02/11/22 10:59 Last Admin: 01/12/22 13:28 Dose: 5 mls/min Documented By: RUSS Remdesivir 100 mg/ Sodium (Chloride) 250 mls @ 250 mls/hr IV Q24H [facility] Stop: 01/15/22 20:59 Last Admin: 01/12/22 20:41 Dose: 250 mls/hr Documented By: MANJU Potassium Chloride (K [place] / Wtr) 10 meq in 100 mls @ 100 mls/hr IV Q1H [facility]; Protocol Stop: 01/12/22 23:44 Last Admin: 01/12/22 20:41 Dose: 100 mls/hr Documented By: MANJU Magnesium Sulfate/Dextrose (Magnesium Sulfate / D5w) 1 gm in 100 mls @ 50 mls/hr IV Q2H [facility] Stop: 01/12/22 23:44 Last Admin: 01/12/22 20:41 Dose: 50 mls/hr Documented By: MANJU Lisinopril (Lisinopril 20 Mg Tab) 20 mg PO DAILY [facility] Stop: 02/11/22 08:59 Last Admin: 01/12/22 09:56 Dose: 20 mg Documented By: EUGENIA Metoprolol Tartrate (Metoprolol Tartrate 50 Mg Tab) 50 mg PO BID [facility] Stop: 02/10/22 23:06 Last Admin: 01/12/22 09:55 Dose: 50 mg Documented By: Admin: 01/12/22 00:51 Dose: 50 mg Documented By: HORACIO Metoprolol Tartrate (Metoprolol Tartrate 1 Mg/Ml Vial) 5 mg IV Q6 [facility] Stop: 02/11/22 13:29 Last Admin: 01/12/22 18:36 Dose: 5 mg Documented By: Admin: 01/12/22 14:26 Dose: 5 mg Documented By: RUSS Miscellaneous (Pimavanserin [Nuplazid]: Order Awaiting Action) 1 each N/A QS [facility] Stop: 02/11/22 07:59 Last Admin: 01/12/22 16:24 Dose: Not Given Documented By: Admin: 01/12/22 08:09 Dose: Not Given Documented By: ED Pravastatin Sodium (Pravastatin Sod 40 Mg Tab) 80 mg PO DAILY [facility] Stop: 02/11/22 08:59 Last Admin: 01/12/22 09:56 Dose: 80 mg Documented By: ED Vitamin B Complex (Vitamin B Complex Tab) 1 tab PO DAILY TRE Stop: 02/11/22 08:59 Last Admin: 01/12/22 09:55 Dose: 1 tab Documented By: ED Vitamin D (Cholecalciferol 1,000 Units 25 Mcg Tab) 2,000 units PO DAILY TRE Stop: 02/11/22 08:59 Last Admin: 01/12/22 09:57 Dose: 2,000 units Documented By: ED Discontinued Medications Albuterol (Albut/Ipratrop 3mg/0.5mg Neb 3 Ml Vial) 3 ml NEB QIDR TRE; Protocol Stop: 02/11/22 06:59 Last Admin: 01/12/22 14:43 Dose: 3 ml Documented By: Admin: 01/12/22 11:34 Dose: 3 ml Documented By: Admin: 01/12/22 06:22 Dose: 3 ml Documented By: BECKY Diltiazem HCl (Diltiazem Hcl 5 Mg/Ml 5 Ml Vial) 10 mg IV NOW STA Stop: 01/11/22 17:05 Last Admin: 01/11/22 17:11 Dose: 10 mg Documented By: [id number] Co-signed By: ALEX Furosemide (Furosemide Inj 20 Mg/2 Ml Vial) 20 mg IV ONE ONE Stop: 01/11/22 23:20 Last Admin: 01/12/22 00:52 Dose: 20 mg Documented By: HORACIO Sodium Chloride (Nss 1000ml) 1,000 mls @ 999 mls/hr IV .Q1H1M TRE Stop: 01/11/22 18:00 Last Infusion: 01/11/22 19:39 Dose: 0 mls/hr Documented By: Admin: 01/11/22 17:12 Dose: 999 mls/hr Documented By: [id number] Ceftriaxone Sodium (Rocephin) 1,000 mg in 50 mls @ 100 mls/hr IV NOW STA Stop: 01/11/22 19:01 Last Infusion: 01/11/22 19:39 Dose: 0 mls/hr Documented By: Admin: 01/11/22 19:06 Dose: 100 mls/hr Documented By: PATEL Azithromycin 500 mg/ Dextrose 255 mls @ 125 mls/hr IV ONE ONE Stop: 01/11/22 20:34 Last Infusion: 01/11/22 21:33 Dose: 0 mls/hr Documented By: Admin: 01/11/22 19:20 Dose: 125 mls/hr Documented By: PATEL Sodium Chloride (Nss 1000ml) 1,000 mls @ 80 mls/hr IV .[id number] TRE Stop: 01/12/22 11:36 Last Admin: 01/12/22 00:58 Dose: Not Given Documented By: HORACIO Remdesivir 200 mg/ Sodium (Chloride) 250 mls @ 125 mls/hr IV ONE STA; Protocol Stop: 01/12/22 01:06 Last Infusion: 01/12/22 04:41 Dose: 0 mls/hr Documented By: Admin: 01/12/22 01:37 Dose: 125 mls/hr Documented By: HORACIO Lactated Ringer's (Lr) 1,000 mls @ 50 mls/hr IV .Q20H [facility] Stop: 02/11/22 18:59 Last Admin: 01/12/22 19:51 Dose: Not Given Documented By: MANJU Metoprolol Tartrate (Metoprolol Tartrate 1 Mg/Ml Vial) 5 mg IV NOW STA Stop: 01/11/22 17:41 Last Admin: 01/11/22 17:54 Dose: 5 mg Documented By: AM Metoprolol Tartrate (Metoprolol Tartrate 1 Mg/Ml Vial) 5 mg IV NOW STA Stop: 01/11/22 22:53 Last Admin: 01/11/22 22:59 Dose: 5 mg Documented By: KML Potassium Chloride (Potassium Chloride Crtab 20 Meq Tabcr) 40 meq PO NOW STA Stop: 01/12/22 19:01 Last Admin: 01/12/22 19:51 Dose: Not Given Documented By: MANJU Imaging Data Radiologist's Impression: Chest X-Ray 01/11/22 16:52 XR chest 1V portable CLINICAL HISTORY: Sepsis COMPARISON STUDY: Chest CT March 06, 2015. Chest radiograph February 25, 2018. FINDINGS: Chondroid lesion within the proximal left humerus is unchanged. There is no pneumothorax. A small left pleural effusion is present. Left basilar airspace opacity is noted. Pulmonary vascular congestion is noted with suspected mild pulmonary edema. There is moderate cardiomegaly. IMPRESSION: 1. Left basilar opacity which favors pneumonia. Radiographic follow-up to ensure resolution is recommended. 2. Small left pleural effusion. 3. Cardiomegaly. Suspected mild pulmonary edema. ACT 112: Negative or not required by law. Electronically signed by: Russell Mari M.D. 01/11/2022 5:[address] 01/11/22 17:40 CT OF THE HEAD WITHOUT CONTRAST CLINICAL HISTORY: AMS x 3 days COMPARISON STUDY: Head CT February 14, 2018. MRI of the brain July 13, 2019. CT DOSE: 1848.54 mGy.cm TECHNIQUE: Helical axial images of the head were obtained without IV contrast. Automated exposure control was utilized for the study. A dose lowering technique was utilized adhering to the principles of ALARA. FINDINGS: This study is mildly compromised by motion artifact. No acute intracranial hemorrhage, midline shift or mass effect is present. Mild ventricular dilatation is likely due to atrophy. White matter hypodensity suggests small vessel disease. There is bilateral basal ganglia calcification. There are no findings to suggest acute dural sinus thrombosis or acute territorial infarct. Left sphenoid sinus is opacified. This is mildly progressed. Left lens is dislocated. This is unchanged. IMPRESSION: No acute intracranial findings. Exam mildly compromised by motion artifact. ACT 112: Negative or not required by law. Electronically signed by: Russell Mari M.D. 01/11/2022 6:24 PM Discharge Plan Visit Data Patient Disposition: Admitted As Inpatient Discharge Instructions Interventions: ED Discharge Assessment Last Done: 01/11/22 22:50
[2022-01-11] MEDS ORDERED: SODIUM CHLORIDE 0.9% 1000ML 1,000 ML IV SCH ×2 (17:00→23:07)
[2022-01-11] MEDS ORDERED: dilTIAZem HCl 5 MG/ML 5 ML VIAL IV STA (17:04)
[2022-01-11] MEDS ORDERED: METOPROLOL TARTRATE 1 MG/ML VIAL IV STA ×2 (17:40→22:52)
[2022-01-11 17:44] LABS: Hematocrit (blood only) 47.7 % (34.1-44.9); Hemoglobin 16.7 g/dl (12.0-16.0); Mean Corpuscular Hemoglobin 31.7 pg (25.0-34.0); Mean Corpuscular Volume 90.7 fL (80.0-100.0); Mean Platelet Volume 13.3 fL (9.4-12.3); Platelet Count 68 K/uL (130-400); RDW Coefficient of Variation 13.3 % (11.5-14.5); RDW Standard Deviation 44.2 fL (36.4-46.3); Red Blood Count 5.26 M/uL (3.93-5.22); White Blood Count 7.97 K/ul (4.8-10.8)
--- NOTE | 2022-01-11 17:48 | XRay Report ---
XR chest 1V portable CLINICAL HISTORY: Sepsis COMPARISON STUDY: Chest CT March 06, 2015. Chest radiograph February 25, 2018. FINDINGS: Chondroid lesion within the proximal left humerus is unchanged. There is no pneumothorax. A small left pleural effusion is present. Left basilar airspace opacity is noted. Pulmonary vascular c ongestion is noted with suspected mild pulmonary edema. There is moderate cardiomegaly. IMPRESSION: 1. Left basilar opacity which favors pneumonia. Radiographic follow-up to ensure resolution is recomm ended. 2. Small left pleural effusion. 3. Cardiomegaly. Suspected mild pulmonary edema. ACT 112: Negative or not required by law. Electronically signed by: Russell Mari M.D. 01/11/2022 5:47 PM
[2022-01-11 17:51] LABS: Troponin I High Sensitivity 27.7 pg/ml (0-14)
[2022-01-11 18:08] LABS: Basophils # (auto) 0.02 K/uL (0-0.2); Basophils % (auto) 0.3 %; Immature Granulocytes # (auto) 0.02 K/uL (0.00-0.02); Immature Granulocytes % (auto) 0.3 %; Lymphocytes # (auto) 0.51 K/uL (1.2-3.4); Lymphocytes % (auto) 6.4 %; Monocytes # (auto) 0.82 K/uL (0.24-0.82); Monocytes % (auto) 10.3 %; Neutrophils % (auto) 82.7 %; Platelet Estimate Decreased (Normal)
[2022-01-11 18:15] LABS: Alanine Aminotransferase 21 U/L (7-52); Albumin Level 3.9 gm/dl (3.4-5.0); Alkaline Phosphatase 77 U/L (34-104); Anion Gap 13 (3-11); Aspartate Aminotransferase 40 U/L (13-39); BUN Creatinine Ratio 19.4 (10-20); Bilirubin Direct 0.2 mg/dl (0-0.2); Bilirubin,Total 1.7 mg/dl (0.2-1.0); Blood Urea Nitrogen 20 mg/dl (6-23); Calcium 9.4 mg/dl (8.5-10.1); Carbon Dioxide 23 mmol/L (21-32); Chloride 99 mmol/L (98-107); Est GFR (African American) 56.2 ml/min; Est GFR (Non-African American) 48.5 ml/min; Glucose 135 mg/dl (70-99(Fasting)); Magnesium 1.7 mg/dl (1.7-2.4); Potassium 3.5 mmol/L (3.5-5.1); Sodium 135 mmol/L (136-145); Total Protein 8.2 gm/dl (6.0-8.3)
--- NOTE | 2022-01-11 18:26 | CT Scan Report ---
CT OF THE HEAD WITHOUT CONTRAST CLINICAL HISTORY: AMS x 3 days COMPARISON STUDY: Head CT February 14, 2018. MRI of the brain July 13, 2019. CT DOSE: 1848.54 mGy.cm TECHNIQUE: Helical axial images of the head were obtained without IV contrast. Automated exposure con trol was utilized for the study. A dose lowering technique was utilized adhering to the principles o f ALARA. FINDINGS: This study is mildly compromised by motion artifact. No acute intracranial hemorrhage, midl ine shift or mass effect is present. Mild ventricular dilatation is likely due to atrophy. White neli er hypodensity suggests small vessel disease. There is bilateral basal ganglia calcification. There a re no findings to suggest acute dural sinus thrombosis or acute territorial infarct. Left sphenoid si nus is opacified. This is mildly progressed. Left lens is dislocated. This is unchanged. IMPRESSION: No acute intracranial findings. Exam mildly compromised by motion artifact. ACT 112: Negative or not required by law. Electronically signed by: Russell Mari M.D. 01/11/2022 6:24 PM
[2022-01-11] MEDS ORDERED: AZITHROMYCIN 500 MG in DEXTROSE 5% 250 ML IV ONE (18:32)
[2022-01-11] MEDS ORDERED: cefTRIAXone SODIUM 1,000 MG/50 ML BAG IV STA (18:32)
[2022-01-11 19:28] LABS: Appearance Urine Clear (Clear); Bacteria Urine Automated Negative (Negative); Bilirubin Urine Negative (Negative); Blood Urine 2+ (Negative); Color Urine Yellow; Epithelial Cell Urine Auto 20-30 /lpf (0-5); Glucose Urine UA Negative (Negative); Ketones Urine 1+ (Negative); Leukocyte Esterase Urine Negative (Negative); Nitrite Urine Negative (Negative); Protein Urine 3+ (Negative); RBC Urine Automated 0-4 /hpf (0-4); Specific Gravity Urine 1.018 (1.000-1.030); Urobilinogen Urine Negative (Negative)
[2022-01-11 19:53] LABS: Influenza A virus by PCR Negative (Neg); Influenza B virus by PCR Negative (Neg); RSV by PCR Negative (Neg)
[2022-01-11 21:24] LABS: SARS CoV2 RNA(COVID-19)Cepheid POSITIVE (Negative)
--- NOTE | 2022-01-11 21:31 | History & Physical Report ---
Date of Service January 11, 2022 Assessment & Plan (1) Atrial fibrillation with RVR: Plan: 86 yo F with PMH CAD s/p LCx stent, dementia, HTN, HLD, CKD3, osteoporosis, chronic ITP presenting with altered mental status. Acutely altered mental status in setting of chronic cognitive decline -Encephalopathy likely secondary to acute infection -Head CT negative -Speech/swallow evaluation ordered -Trend CBC, CMP -Ammonia level ordered for AM Acute bacterial pneumonia -CXR- L basilar opacity, small L pleural effusion, cardiomegaly with mild pulmonary edema -Ceftriaxone, azithromycin given in ED -Suspect potential superimposed bacterial pneumonia on COVID-19 infection with procalcitonin 8 -Questionable contribution from aspiration given pt's recent AMS and functional decline -Continue azithromycin, switched ceftriaxone to Unasyn to better cover anaerobes for possible aspiration as above -Trend CBC, repeat lactate in AM Atrial fibrillation with RVR -Currently in atrial fibrillation, HRs 100s-110s -Does appear to be new onset, CHADSVASC score > 2 -Given pt's age, thrombocytopenia and fall risk, will defer anticoagulation on admission -S/p IV diltiazem, IV Lopressor x1 in ED with improvement from 140s to 110s -Continue metoprolol tartrate 50 mg BID -Telemetry monitoring -Consider cardiology consult -Trend CMP, Mg -Replete to maintain K > 4, Mg > 2 COVID-19 infection -CXR findings as above -Continue remdesivir -Continue dexamethasone IV 6 mg daily -Pantoprazole 40 mg IV daily for ulcer prophylaxis -Continue O2 supplementation- currently saturating well on 4L NC, wean to RA as tolerated -O2 goal > 94% Elevated troponin -Troponin 28 on admission -Likely due to demand ischemia in setting of AF w/ RVR and acute infection, known CAD -Trend to peak Thrombocytopenia -Plts 68 on admission, baseline appears to be 100-120s -Peripheral smear ordered -Trend CBC CAD s/p LCx stent -Continue lisinopril, metoprolol, pravastatin -Not on any antiplatelet medication likely due to baseline thrombocytopenia HTN -Continue lisinopril 20 mg daily -Continue metoprolol tartrate 50 mg BID HLD -Continue pravastatin 80 mg daily CKD3 -Cr 1.01, at baseline -Renal dosing for medication -Trend CMP Vitamin D deficiency -Continue home vitamin D supplementation FENGI: Regular, IVF 80 cc/hr x1L Code status: DNR/DNI DVT ppx: SCDs Isolation: COVID PT/OT: ordered Dispo: PCU (2) Dementia: (3) Vitamin D deficiency: (4) Chronic ITP (idiopathic thrombocytopenia): (5) CKD (chronic kidney disease), stage III: (6) Hypertension: (7) Carotid artery disease: (8) Pneumonia: History of Present Illness Chief Complaint: Altered mental status Primary Care Provider: Brad Marshall MD 86 yo F with PMH CAD s/p LCx stent, dementia, HTN, HLD, CKD3, osteoporosis, chronic ITP presenting with altered mental status. History obtained primarily by chart review as pt was minimally able to engage in interview due to mental status. Pt has had progressive functional decline over past several days with reduced PO intake, ambulation and productive cough. Brought to ED by family due to concern over this decline. Pt arrived to ED in atrial fibrillation with tachycardia in 140s-150s, elevated BP to 150s systolic, no hypoxia, acutely altered mental status. Labs significant for lactate 2, procalcitonin 8, Plts 68, troponin 28. EKG- AF w/ RVR, rate 137. Head CT negative for acute findings. CXR with left basilar opacity/consolidation concerning for pneumonia. COVID+. Pt was given 1L NSS bolus. Diltiazem and IV Lopressor given for rate control with improvement to HR 100s/110s. Given ceftriaxone/azithromycin for concern for pneumonia. Started on 1L NC O2. Allergies Allergy/AdvReac Type Severity Reaction Status Date / Time adhesive Allergy Mild IRRITATION Verified 01/11/22 20:28 Sulfa (Sulfonamide Allergy Unknown ? REMEMBER Verified 01/11/22 20:28 Antibiotics) codeine AdvReac Intermediate LONG Verified 01/11/22 20:28 FEELING ARMS lovastatin AdvReac Intermediate MYALGIA Verified 01/11/22 20:28 AND WEAKNESS lorazepam AdvReac Mild itching Verified 01/11/22 20:28 Home Medications Medication Instructions Recorded Confirmed Type nitroglycerin 0.4 mg sublingual 0.4 mg sublingual UD PRN Chest Pain 02/25/18 01/11/22 History tablet (Nitrostat) cholecalciferol (vitamin D3) 50 2,000 units PO DAILY 12/13/18 01/11/22 History mcg (2,000 unit) capsule polyethylene glycol 400 0.25 % eye 0.25 % ophthalmic (eye) DAILY #30 07/06/19 01/11/22 Rx drops (Blink Tears) mL vitamin B complex (B 1 tab PO DAILY #30 tabs 07/06/19 01/11/22 Rx Complex-Vitamin B12 tablet) pimavanserin 34 mg capsule 34 mg PO DAILY #30 caps 12/20/19 01/11/22 Rx (Nuplazid) metoprolol tartrate 50 mg tablet See Rx Instructions .Route 03/03/21 01/11/22 Rx .COMPLEX #180 tabs pravastatin 80 mg tablet 80 mg PO DAILY #90 tabs 06/03/21 01/11/22 Rx lisinopril 20 mg tablet 20 mg PO DAILY #90 tabs 12/16/21 01/11/22 Rx Past Med/Surg History Medical History (Updated 01/12/22 @ 00:05 by Jennifer Daadelaida) CAD (coronary artery disease) CAD (coronary artery disease) Cerebrovascular small vessel disease Chest pain Chronic ITP (idiopathic thrombocytopenia) Chronic steroid use CKD (chronic kidney disease), stage III Hypertension RI (myocardial infarction) Myocardial infarction Polymyalgia rheumatica Surgical History H/O colonoscopy H/O removal of cyst excision of Right sebaceous cyst 2014 and 2018 History of incision and drainage Hx of cardiac cath cath stent 1 proximal circumflex Family History Sister Colon cancer Other Breast cancer Denies family history of Ovarian cancer Prostate cancer Lung cancer Colorectal cancer Social History Smoking Status: Unknown if ever smoked Second Hand Exposure: No; Preferred Language: Sinhala Communication Ability: Impaired Communication Ability Comment: unable to respond d/t AMS Visual Impairment: Limited Hearing Ability: Use of Hearing Aid [employer] Admin Required: No Beliefs That Will Affect Care: None marital status: Current Living Situation: Spouse current occupational status: retired How many Children do You have: 0 Feels Safe at Home: Yes Safety Concerns Comment: Feels unsafe with some of her neighbors Childhood Exposure to Second-Hand Smoke: Yes caffeine: Yes (two cups of coffee daily ) Dental Care, Regularly: No Physical Activity Frequency: Does not Exercise Seatbelt Use: always Sunscreen Use: No Assistive Devices: Cane Assistive Devices Comment: uses a cane sometimes Review of Systems Review of Systems: Limited by mental status Physical Exam Physical Exam: General: Occasionally alert, frail-appearing, confused HEENT: Normocephalic, trachea midline, anicteric sclerae, no conjunctival injection, PERRLA, EOMI Pulmonary: CTAB, unlabored respirations, faint crackles of L lung base Cardio: Tachycardic, irregular rhythm, no murmurs GI: Soft, nontender, nondistended : No suprapubic tenderness Skin: no rashes, warm and dry Neuro: tracks examiner, AOx0 Psychiatric: Not aggressive/agitated Results & Data Results & Data ([facility]) Vital Signs (Past 12 Hours) Vital Signs Temp Pulse Resp BP Pulse Ox O2 Del Method O2 Flow Rate 01/11/22 19:06 114 H 16 177/97 H 95 Nasal Cannula 4 01/11/22 19:19 96 Room Air 01/11/22 18:00 101 H 28 H 96 01/11/22 18:00 146/78 H 01/11/22 17:55 149/75 H 01/11/22 17:55 133 H 23 95 01/11/22 17:45 119 H 21 97 01/11/22 17:45 147/114 H 01/11/22 17:30 121 H 21 94 01/11/22 17:30 188/90 H 01/11/22 17:54 122 H 149/75 H 01/11/22 17:27 115 H 21 96 01/11/22 17:27 155/95 H 01/11/22 17:15 161 H 23 95 01/11/22 17:09 149 H 25 H 93 01/11/22 17:17 36.7 C 135 H 20 158/131 H 93 Nasal Cannula 1 Supervising Physician Co-Signing Physician Notes Attending addendum: I have physically seen this patient, have supervised the medical residents activities, and agree with the H&P unless as otherwise noted. Assessment and Plan: Atrial fibrillation with RVR/CAD/history of left circumflex stent/hypertension- The patient will be admitted to telemetry for serial cardiac enzymes, serial EKG's, cardiac rhythm monitoring and a 2-D echocardiogram with Dopplers. Holding anticoagulation due to significant thrombocytopenia Improved rate control after IV diltiazem and Lopressor given by the ED Continue metoprolol tartrate 50 mg p.o. twice daily Target potassium 4, and magnesium 2 Acute respiratory failure with hypoxia- Combination of COVID-19 infection and secondary bacterial pneumonia COVID-19 infection- Dexamethasone 6 mg IV daily Remdesivir IV per protocol Guaifenesin extended release 1200 mg p.o. twice daily Pneumonia involving left lower lobe of lung- Concern regarding possible aspiration Patient was given ceftriaxone and azithromycin IV in ED Due to concerns regarding aspiration, patient will be placed on Unasyn IV and continue azithromycin IV Thrombocytopenia- Platelets on admission 68 Significantly lower than baseline in the low 100s We will hold on any antiplatelet or anticoagulation medications Peripheral smear to check for etiology Remaining orders and notations as noted Resident Activity Tracking Resident Involvement: Resident Care Provided Care Provided: Adult Hospital Medicine (1) Dementia Alzheimer's disease onset: late-onset Dementia behavioral disturbance: with behavioral disturbance Dementia type: Alzheimer's disease Qualified Code(s): G30.1 - Alzheimer's disease with late onset; F02.81 - Dementia in other diseases classified elsewhere with behavioral disturbance (2) Hypertension Hypertension type: essential hypertension Qualified Code(s): I10 - Essential (primary) hypertension
[2022-01-11] MEDS ORDERED: NITROGLYCERIN SL 0.4 MG/TAB TAB SL PRN (23:07)
[2022-01-11] MEDS ORDERED: REMDESIVIR 200 MG in SODIUM CHLORIDE 0.9% 210 ML IV STA (23:07)
[2022-01-11] MEDS ORDERED: FUROSEMIDE INJ 20 MG/2 ML VIAL IV ONE (23:19)
[2022-01-12] MEDS: AMPICILLIN/SULBACTAM SOD 3,000 MG in 0.9 % SODIUM CHLORIDE 100 ML IV SCH ×5 (00:51→23:20)
[2022-01-12] MEDS: METOPROLOL TARTRATE 50 MG TAB PO SCH ×2 (00:51→09:55)
[2022-01-12] MEDS: ALBUT/IPRATROP 3MG/0.5MG NEB 3 ML VIAL NEB SCH ×6 (06:22→23:02)
--- NOTE | 2022-01-12 06:55 | Hospitalist Progress Note ---
Date of Service January 12, 2022 Assessment & Plan (1) Atrial fibrillation with RVR: Plan: 86 yo F with PMH CAD s/p LCx stent, dementia, HTN, HLD, CKD3, osteoporosis, chronic ITP presenting with altered mental status. Acutely altered mental status in setting of chronic cognitive decline -Encephalopathy likely secondary to acute infection -Head CT negative -Speech/swallow evaluation ordered -ECHO: EF 50-55%, no significant changes from 2015 ECHO. -Trend CBC, CMP -Ammonia levels normal -LR @ 50ml Acute bacterial pneumonia superimposed on COVID -CXR- L basilar opacity, small L pleural effusion, cardiomegaly with mild pulmonary edema -Ceftriaxone, azithromycin given in ED -Suspect potential superimposed bacterial pneumonia on COVID-19 infection with procalcitonin 8 -Questionable contribution from aspiration given pt's recent AMS and functional decline -Continue azithromycin, switched ceftriaxone to Unasyn to better cover anaerobes for possible aspiration as above -Continue steroids. DuoNeb increased to Q4h -Start remdesivir 100mg IV QD -Trend CBC -MRSA swab pending Atrial fibrillation with RVR -Currently in atrial fibrillation, HRs 100s-110s -Does appear to be new onset, CHADSVASC score > 2 -Given pt's age, thrombocytopenia and fall risk, will defer anticoagulation on admission -S/p IV diltiazem, IV Lopressor x1 in ED with improvement from 140s to 110s -Continue metoprolol IV 5mg Q6 -Telemetry monitoring -Consider cardiology consult -Trend CMP, Mg -Replete to maintain K > 4, Mg > 2 COVID-19 infection -CXR findings as above -Continue remdesivir -Continue dexamethasone IV 6 mg daily -Pantoprazole 40 mg IV daily for ulcer prophylaxis -Continue O2 supplementation- currently saturating well on 4L NC, wean to RA as tolerated -O2 goal > 94% Elevated troponin -Troponin 28 on admission -Likely due to demand ischemia in setting of AF w/ RVR and acute infection, known CAD -Trend to peak Thrombocytopenia -Plts 68 on admission, baseline appears to be 100-120s -Peripheral smear ordered -Trend CBC CAD s/p LCx stent -Continue lisinopril, metoprolol, pravastatin -Not on any antiplatelet medication likely due to baseline thrombocytopenia HTN -Continue lisinopril 20 mg daily -Continue metoprolol tartrate 50 mg BID HLD -Continue pravastatin 80 mg daily CKD3 -Cr 1.01, at baseline -Renal dosing for medication -Trend CMP Vitamin D deficiency -Continue home vitamin D supplementation FENGI: Regular, LR @ 50ml/hr Diet: NPO Code status: DNR/DNI DVT ppx: SCDs Isolation: COVID PT/OT: ordered Dispo: PCU (2) Dementia: (3) Vitamin D deficiency: (4) Chronic ITP (idiopathic thrombocytopenia): (5) CKD (chronic kidney disease), stage III: (6) Hypertension: (7) Carotid artery disease: (8) Pneumonia: Admission and Anticipated Discharge Date Admission Date: January 11, 2022 Supervising Physician Co-Signing Physician Notes I personally examined the patient and verified all dubois points of history and exam, discussed case, and agree with decision making with Dr Luna sleeping, sort of awakens to voice - doesn't really say much - a few nonsensical words mostly before drifting off again. maybe kind of denies dyspnea. Vitals noted, in general she is breathing room air and appears in nad. cardio sl tachy irreg irreg lungs coarse rhonchi throughout but overall good air entry good effort no accessory muscles abd soft nd nt no guarding rebound or rigidity hypoxia related to secondary bacterial pneumonia superimposed on covid (probable covid pneumonia) - improving, continue zithromax and unasyn. continue steroids, remdesivir (follow LFTs), continue supportive care, pulmonary toilet afib/RVR - appearing largely compensatory tachycardia due to above - if rates don't improve as status improves (or if rates worsen) then manage as RVR separately as well. gentle IV fluids until PO intake improves Subjective Patient sleeping with limited verbal response. Able to say some words. At or close to baseline mental status 2/2 dementia Review of Systems Review of Systems: Unobtainable due to cognitive status Physical Exam Constitutional: + ill appearing, + disheveled and + lethargic Eyes: PERRL Neck: trachea midline, no thyromegaly Respiratory: + tachypneic Auscultation: + rhonchi Cardiovascular: Rate/Rhythm: + tachycardic and + irregularly irregular Gastrointestinal (Abdomen): normal bowel sounds, soft, nontender, no hepatosplenomegaly Skin: no rashes, warm and dry Psychiatric: Orientation: oriented to person; + not oriented to place and + not oriented to time Results & Data Results & Data ([facility]) Vital Signs (Past 12 Hours) Vital Signs Pulse Pulse Resp BP BP Pulse Ox Pulse Ox 01/12/22 06:22 121 H 20 95 01/12/22 05:01 123 H 26 H 96 01/12/22 05:01 116/81 01/12/22 05:00 121 H 22 96 01/12/22 04:30 105 H 22 97 01/12/22 04:30 118/89 01/12/22 06:08 01/12/22 04:00 112 H 25 H 96 01/12/22 04:00 161/85 H 01/12/22 03:31 118 H 27 H 94 01/12/22 03:31 141/90 H 01/12/22 03:30 103 H 25 H 96 01/12/22 03:01 115 H 18 01/12/22 03:01 154/68 H 01/12/22 03:00 102 H 20 01/12/22 02:41 119/97 01/12/22 02:41 111 H 20 01/12/22 02:30 121 H 19 94 01/12/22 02:00 115 H 17 93 01/12/22 02:00 118/96 01/12/22 01:30 115 H 28 H 93 01/12/22 01:30 139/94 01/12/22 01:03 154/115 H 01/12/22 01:03 130 H 27 H 96 01/12/22 01:00 122 H 26 H 91 01/12/22 01:00 133/109 H 01/12/22 00:30 121 H 21 93 01/12/22 00:30 145/88 H 01/12/22 00:00 119 H 16 92 01/12/22 00:00 117/88 01/11/22 23:30 110 H 22 92 01/11/22 23:30 123/68 01/11/22 23:00 137 H 19 92 01/11/22 23:00 125/88 01/12/22 04:07 111 H 15 96 01/12/22 01:05 95 01/12/22 01:03 108 H 25 H 154/115 H 95 01/11/22 22:59 129 H 125/88 01/11/22 22:30 134 H 20 126/103 H 89 L 01/11/22 22:15 123 H 19 125/85 92 01/11/22 21:30 124 H 20 115/89 93 01/11/22 21:15 115 H 18 91 01/11/22 21:00 135 H 18 120/75 94 01/11/22 20:45 110 H 16 90 01/11/22 20:30 117 H 20 128/83 90 01/11/22 20:00 110 H 21 131/75 90 01/11/22 19:32 108 H 14 103/85 98 01/11/22 19:06 114 H 16 177/97 H 95 01/11/22 19:19 96 O2 Del Method O2 Del Method O2 Flow Rate O2 Flow Rate 01/12/22 06:22 Oxymask 4 01/12/22 05:01 01/12/22 05:01 01/12/22 05:00 01/12/22 04:30 01/12/22 04:30 01/12/22 06:08 Oxymask 4 01/12/22 04:00 01/12/22 04:00 01/12/22 03:31 01/12/22 03:31 01/12/22 03:30 01/12/22 03:01 01/12/22 03:01 01/12/22 03:00 01/12/22 02:41 01/12/22 02:41 01/12/22 02:30 01/12/22 02:00 01/12/22 02:00 01/12/22 01:30 01/12/22 01:30 01/12/22 01:03 01/12/22 01:03 01/12/22 01:00 01/12/22 01:00 01/12/22 00:30 01/12/22 00:30 01/12/22 00:00 01/12/22 00:00 01/11/22 23:30 01/11/22 23:30 01/11/22 23:00 01/11/22 23:00 01/12/22 04:07 Oxymask 4 01/12/22 01:05 Oxymask 4 01/12/22 01:03 01/11/22 22:59 01/11/22 22:30 01/11/22 22:15 01/11/22 21:30 01/11/22 21:15 01/11/22 21:00 01/11/22 20:45 01/11/22 20:30 01/11/22 20:00 01/11/22 19:32 01/11/22 19:06 Nasal Cannula 4 01/11/22 19:19 Room Air Resident Activity Tracking Resident Involvement: Resident Care Provided Care Provided: Adult Hospital Medicine (1) Dementia Alzheimer's disease onset: late-onset Dementia behavioral disturbance: with behavioral disturbance Dementia type: Alzheimer's disease Qualified Code(s): G30.1 - Alzheimer's disease with late onset; F02.81 - Dementia in other diseases classified elsewhere with behavioral disturbance (2) Hypertension Hypertension type: essential hypertension Qualified Code(s): I10 - Essential (primary) hypertension
[2022-01-12 07:28] LABS: Albumin Globulin Ratio 0.9 (0.9-2); Albumin Level 3.3 gm/dl (3.4-5.0); BUN Creatinine Ratio 21.1 (10-20); Bilirubin,Total 1.6 mg/dl (0.2-1.0); Calcium 8.8 mg/dl (8.5-10.1); Creatinine Clr Calc Pharmacy 36.9 ml/min; Est GFR (Non-African American) 53.5 ml/min; Globulin 3.8 gm/dl (2.5-4.0); Magnesium 1.6 mg/dl (1.7-2.4); Potassium 3.3 mmol/L (3.5-5.1); Total Protein 7.1 gm/dl (6.0-8.3); Troponin I High Sensitivity 36.9 pg/ml (0-14)
[2022-01-12 07:49] LABS: Basophils # (auto) 0.02 K/uL (0-0.2); Basophils % (auto) 0.4 %; Hematocrit (blood only) 42.9 % (34.1-44.9); Hemoglobin 15.1 g/dl (12.0-16.0); Immature Granulocytes # (auto) 0.01 K/uL (0.00-0.02); Immature Granulocytes % (auto) 0.2 %; Lymphocytes % (auto) 10.6 %; Mean Corpuscular Hgb Conc 35.2 g/dL (32.0-36.0); Mean Corpuscular Volume 90.9 fL (80.0-100.0); Mean Platelet Volume 13.8 fL (9.4-12.3); Monocytes # (auto) 0.49 K/uL (0.24-0.82); Monocytes % (auto) 8.6 %; Neutrophils # (auto) 4.56 K/uL (1.4-6.5); Neutrophils % (auto) 80.2 %; Platelet Count 56 K/uL (130-400); Platelet Estimate Decreased (Normal); RDW Coefficient of Variation 13.5 % (11.5-14.5); RDW Standard Deviation 45.2 fL (36.4-46.3); Red Blood Count 4.72 M/uL (3.93-5.22); Toxic Vacuolation 1+; White Blood Count 5.68 K/ul (4.8-10.8)
[2022-01-12] MEDS ORDERED: CHOLECALCIFEROL 1,000 UNITS 25 MCG TAB PO SCH (09:00)
[2022-01-12] MEDS ORDERED: ARTIFICIAL TEARS OP PRN (09:00)
[2022-01-12] MEDS ORDERED: VITAMIN B COMPLEX TAB PO SCH (09:00)
[2022-01-12] MEDS: lisinopril 20 MG TAB PO SCH (09:56)
[2022-01-12] MEDS: PRAVASTATIN SOD 40 MG TAB PO SCH (09:56)
[2022-01-12] MEDS: dexAMETHasone 6 MG in SYRINGE 0 ML IV SCH (09:57)
[2022-01-12] MEDS ORDERED: INFLUENZA VACCINE HIGH DOSE PF 65+ 0.7 ML SYR IM ONE (11:33)
[2022-01-12] MEDS ORDERED: PNEUMOCOCCAL POLYSACCHARIDES 25 MCG/0.5 ML VIAL/SYR IM ONE (11:33)
[2022-01-12] MEDS: AZITHROMYCIN 500 MG in DEXTROSE 5% 250 ML IV SCH (13:27)
[2022-01-12] MEDS: PANTOprazole 40 MG in SYRINGE 0 ML IV SCH (13:28)
[2022-01-12] MEDS: METOPROLOL TARTRATE 1 MG/ML VIAL IV SCH ×3 (14:26→23:20)
--- NOTE | 2022-01-12 18:35 | XCELERA ---
[id number] \\[id number]
[2022-01-12] MEDS ORDERED: POTASSIUM CHLORIDE CRTAB 20 MEQ TABCR PO STA (19:00)
[2022-01-12] MEDS ORDERED: LACTATED RINGER'S 1,000 ML IV SCH (19:00)
--- NOTE | 2022-01-12 19:01 | Billing Data ---
Date of Service January 12, 2022 Coding Level of Care Code 85459 Subseq Hosp Care Lvl 3
--- NOTE | 2022-01-12 19:47 | Communication Note ---
Date of Service: January 12, 2022 Informed of strict NPO. Changing PO KCl to IV x 4 bags. Adding 2 bags Mg IV. Stopping LR 50/hr to reduce risk of hypervolemia.
[2022-01-12] MEDS: REMDESIVIR 100 MG in SODIUM CHLORIDE 0.9% 230 ML IV SCH (20:41)
[2022-01-12] MEDS: MAGNESIUM SULFATE / D5W 1 GM/100 ML BAG IV SCH ×2 (20:41→22:46)
[2022-01-12] MEDS: POTASSIUM CHLORIDE / WTR 10 MEQ/100 ML PLCT IV SCH ×3 (20:41→23:21)
[2022-01-13] MEDS: POTASSIUM CHLORIDE / WTR 10 MEQ/100 ML PLCT IV SCH (01:11)
[2022-01-13] MEDS: ALBUT/IPRATROP 3MG/0.5MG NEB 3 ML VIAL NEB SCH ×4 (02:41→15:58)
[2022-01-13] MEDS ORDERED: ALBUTEROL 0.083% NEBU SOLN 3 ML VIAL NEB PRN (03:37)
[2022-01-13] MEDS ORDERED: ACETAMINOPHEN 1,000 MG/100 ML VIAL IV STA (04:07)
[2022-01-13] MEDS: AMPICILLIN/SULBACTAM SOD 3,000 MG in 0.9 % SODIUM CHLORIDE 100 ML IV SCH ×4 (05:09→23:43)
[2022-01-13] MEDS: METOPROLOL TARTRATE 1 MG/ML VIAL IV SCH ×4 (05:09→23:44)
--- NOTE | 2022-01-13 05:46 | Electrocardiogram Report ---
Test Reason : Blood Pressure : / mmHG Vent. Rate : 137 BPM Atrial Rate : 122 BPM P-R Int : 000 ms QRS Dur : 076 ms QT Int : 290 ms P-R-T Axes : 000 143 -39 degrees QTc Int : 437 ms Atrial fibrillation with rapid ventricular response Left posterior fascicular block Nonspecific ST and T wave abnormality Abnormal ECG When compared with ECG of 25-FEB-2018 10:24, Atrial fibrillation has replaced Sinus rhythm ST/T wave abnormality now present in inferolateral leads Vent. rate has increased by 74 bpm Confirmed by Kamaljit Chavez ([id number]) on 01/13/2022 5:45:39 AM Referred By: REFERRED SELF Confirmed By:Kamaljit Chavez
[2022-01-13 07:40] LABS: Mean Corpuscular Hemoglobin 31.9 pg (25.0-34.0); Mean Corpuscular Hgb Conc 34.9 g/dL (32.0-36.0); Mean Corpuscular Volume 91.5 fL (80.0-100.0); RDW Coefficient of Variation 13.5 % (11.5-14.5); RDW Standard Deviation 45.9 fL (36.4-46.3); White Blood Count 6.22 K/ul (4.8-10.8)
--- NOTE | 2022-01-13 07:40 | Hospitalist Progress Note ---
Date of Service January 13, 2022 Assessment & Plan (1) Atrial fibrillation with RVR: Plan: 86 yo F with PMH CAD s/p LCx stent, dementia, HTN, HLD, CKD3, osteoporosis, chronic ITP presenting with altered mental status. Acutely altered mental status in setting of chronic cognitive decline -Encephalopathy likely secondary to acute infection -Head CT negative -Speech/swallow evaluation ordered. -ECHO: EF 50-55%, no significant changes from 2015 ECHO. -Trend CBC, CMP -Ammonia levels normal on 01/12. -Patient's mental status and lung function improved to 01/13. -Will advance diet as tolerated. Acute bacterial pneumonia superimposed on COVID -CXR- L basilar opacity, small L pleural effusion, cardiomegaly with mild pulmonary edema -Ceftriaxone, azithromycin given in ED -Suspect potential superimposed bacterial pneumonia on COVID-19 infection with procalcitonin 8 -Questionable contribution from aspiration given pt's recent AMS and functional decline -Continue azithromycin, switched ceftriaxone to Unasyn to better cover anaerobes for possible aspiration as above -Continue steroids and DuoNeb -Start remdesivir 100mg IV QD -Trend CBC -MRSA swab negative Atrial fibrillation with RVR -Atrial fibrillation, HRs 100s-110s on admission -Does appear to be new onset, CHADSVASC score > 2 -Given pt's age, thrombocytopenia and fall risk, will defer anticoagulation on admission -S/p IV diltiazem, IV Lopressor x1 in ED with improvement from 140s to 110s -Repeat EKG on 01/13 showed continue Afib w/ RVR. Will give one liter LR @50mL/hr. -Increased metoprolol IV from 5mg to 10mg Q6. -Telemetry monitoring -Consider cardiology consult -Trend CMP, Mg -Replete to maintain K > 4, Mg > 2 COVID-19 infection -CXR findings as above -Continue remdesivir -Continue dexamethasone IV 6 mg daily -Pantoprazole 40 mg IV daily for ulcer prophylaxis -Continue O2 supplementation- currently saturating well on 4L NC, wean to RA as tolerated -O2 goal > 94% Elevated troponin -Troponin 28 on admission -Likely due to demand ischemia in setting of AF w/ RVR and acute infection, known CAD -Trend to peak Thrombocytopenia -Plts 68 on admission, baseline appears to be 100-120s -Peripheral smear ordered -Trend CBC CAD s/p LCx stent -Continue lisinopril, metoprolol, pravastatin -Not on any antiplatelet medication likely due to baseline thrombocytopenia HTN -Continue lisinopril 20 mg daily -Continue metoprolol tartrate 50 mg BID HLD -Continue pravastatin 80 mg daily CKD3 -Cr 0.89, at baseline -Renal dosing for medication -Trend CMP Vitamin D deficiency -Continue home vitamin D supplementation FENGI: Regular, LR @ 50ml/hr Code status: DNR/DNI DVT ppx: SCDs Isolation: COVID PT/OT: ordered Dispo: PCU (2) Dementia: (3) Vitamin D deficiency: (4) Chronic ITP (idiopathic thrombocytopenia): (5) CKD (chronic kidney disease), stage III: (6) Hypertension: (7) Carotid artery disease: (8) Pneumonia: Admission and Anticipated Discharge Date Admission Date: January 11, 2022 Supervising Physician Co-Signing Physician Notes I personally examined the patient and verified all dubois points of history and exam, discussed case, and agree with decision making with Dr Luna Awake very disoriented, having a conversation with the corner of the room. Not really able to make any sense of what she is saying, no meaningful HPI review of systems, but she is much more alert than before. Vitals noted, awake, disoriented, conversing with corner of the room, no distress. HEENT normocephalic atraumatic mucous membranes may be slightly dry. Cardio irregularly irregular mildly tachycardic. Lungs are surprisingly clear no significant rales rhonchi or wheezes good effort no accessory muscle use. Skin shows no rashes no pallor or icterus. Confusion noted but no focal neurodeficits. hypoxia related to secondary bacterial pneumonia superimposed on covid (probable covid pneumonia) -showing ongoing improvement, continue zithromax and unasyn. continue steroids, remdesivir (LFTs have been reassuring), continue supportive care, pulmonary toilet afib/RVR - appearing largely compensatory tachycardia due to above -however, with persistent tachycardia will gently start to manage as RVR Continue gentle IV fluids until PO intake improves Subjective Patient was seen beside this AM. She was able to talk more today and able to answer questions such as her name. She states that she is in no pain and not having any SOB. She is is AnOx1 (self) Review of Systems Review of Systems: Constitutional: denies fever, chills, fatigue HEENT: denies congestion, sore throat CV: denies chest pain, palpitations Resp: denies shortness of breath, cough GI: denies abdominal pain, nausea, vomiting, constipation, diarrhea : denies pain with urination, change in urinary frequency Neuro: denies new numbness, tingling, weakness Physical Exam Constitutional: comfortable and + underweight Eyes: PERRL Respiratory: normal respiratory effort, lungs clear to auscultation Cardiovascular: Rate/Rhythm: + tachycardic and + irregularly irregular Gastrointestinal (Abdomen): normal bowel sounds, soft, nontender, no hepatosplenomegaly Musculoskeletal: no cyanosis or clubbing, extremities motor strength 5/5 Results & Data Results & Data ([facility]) Vital Signs (Past 12 Hours) Vital Signs Temp Pulse Pulse Resp BP BP BP 01/13/22 07:36 115 H 16 115/70 01/13/22 05:34 118 H 16 01/13/22 05:09 118 H 104/61 01/13/22 03:06 36.5 C 117 H 20 135/96 01/13/22 02:44 120 H 18 01/12/22 23:02 106 H 18 01/12/22 22:50 36.5 C 117 H 16 116/85 01/12/22 22:51 01/12/22 23:20 127 H 128/71 Pulse Ox O2 Del Method 01/13/22 07:36 97 Room Air 01/13/22 05:34 93 Room Air 01/13/22 05:09 01/13/22 03:06 95 Room Air 01/13/22 02:44 94 Room Air 01/12/22 23:02 96 Room Air 01/12/22 22:50 92 Room Air 01/12/22 22:51 Room Air 01/12/22 23:20 Resident Activity Tracking Resident Involvement: Resident Care Provided Care Provided: Adult Hospital Medicine (1) Dementia Alzheimer's disease onset: late-onset Dementia behavioral disturbance: with behavioral disturbance Dementia type: Alzheimer's disease Qualified Code(s): G30.1 - Alzheimer's disease with late onset; F02.81 - Dementia in other diseases classified elsewhere with behavioral disturbance (2) Hypertension Hypertension type: essential hypertension Qualified Code(s): I10 - Essential (primary) hypertension
[2022-01-13 08:00] LABS: Basophils # (auto) 0.01 K/uL (0-0.2); Basophils % (auto) 0.2 %; Echinocytes 1+; Immature Granulocytes # (auto) 0.01 K/uL (0.00-0.02); Immature Granulocytes % (auto) 0.2 %; Lymphocytes # (auto) 0.33 K/uL (1.2-3.4); Lymphocytes % (auto) 5.3 %; Monocytes # (auto) 0.44 K/uL (0.24-0.82); Monocytes % (auto) 7.1 %; Neutrophils # (auto) 5.43 K/uL (1.4-6.5); Neutrophils % (auto) 87.2 %
[2022-01-13 08:01] LABS: Mean Platelet Volume 13.8 fL (9.4-12.3); Platelet Count 56 K/uL (130-400)
[2022-01-13 08:05] LABS: Albumin Globulin Ratio 0.9 (0.9-2); BUN Creatinine Ratio 39.3 (10-20); Bilirubin,Total 1.2 mg/dl (0.2-1.0); Calcium 8.8 mg/dl (8.5-10.1); Creatinine Clr Calc Pharmacy 40.1 ml/min; Est GFR (African American) 67.1 ml/min; Est GFR (Non-African American) 57.9 ml/min; Globulin 3.4 gm/dl (2.5-4.0); Magnesium 2.3 mg/dl (1.7-2.4); Potassium 3.7 mmol/L (3.5-5.1); Total Protein 6.4 gm/dl (6.0-8.3)
[2022-01-13] MEDS: dexAMETHasone 6 MG in SYRINGE 0 ML IV SCH (08:10)
[2022-01-13] MEDS ORDERED: LACTATED RINGER'S 1,000 ML IV SCH (08:15)
[2022-01-13] MEDS: PANTOprazole 40 MG in SYRINGE 0 ML IV SCH (11:42)
[2022-01-13] MEDS: AZITHROMYCIN 500 MG in DEXTROSE 5% 250 ML IV SCH (11:48)
[2022-01-13] MEDS ORDERED: ALBUT/IPRATROP 3MG/0.5MG NEB 3 ML VIAL NEB PRN (15:57)
--- NOTE | 2022-01-13 17:13 | Billing Data ---
Date of Service January 13, 2022 Coding Level of Care Code 06169 Subseq Hosp Care Lvl 3
[2022-01-13] MEDS ORDERED: METOPROLOL TARTRATE 1 MG/ML VIAL IV SCH (18:00)
[2022-01-13] MEDS: REMDESIVIR 100 MG in SODIUM CHLORIDE 0.9% 230 ML IV SCH (19:50)
[2022-01-14] MEDS: METOPROLOL TARTRATE 1 MG/ML VIAL IV SCH ×4 (05:13→23:19)
[2022-01-14] MEDS: AMPICILLIN/SULBACTAM SOD 3,000 MG in 0.9 % SODIUM CHLORIDE 100 ML IV SCH ×4 (05:15→23:03)
--- NOTE | 2022-01-14 05:33 | Electrocardiogram Report ---
Test Reason : Blood Pressure : / mmHG Vent. Rate : 120 BPM Atrial Rate : 125 BPM P-R Int : 000 ms QRS Dur : 070 ms QT Int : 324 ms P-R-T Axes : 000 051 071 degrees QTc Int : 457 ms Atrial fibrillation with rapid ventricular response Low voltage QRS Cannot rule out Anterior infarct , age undetermined Abnormal ECG When compared with ECG of 11-JAN-2022 17:02, Left posterior fascicular block is no longer Present ST no longer depressed in Lateral leads Nonspecific T wave abnormality no longer evident in Inferior leads Nonspecific T wave abnormality no longer evident in Lateral leads Confirmed by Kamaljit Chavez ([id number]) on 01/14/2022 5:33:34 AM Referred By: REFERRED SELF Confirmed By:Kamaljit Chavez
--- NOTE | 2022-01-14 06:33 | Hospitalist Progress Note ---
Date of Service January 14, 2022 Assessment & Plan (1) Atrial fibrillation with RVR: Plan: 86 yo F with PMH CAD s/p LCx stent, dementia, HTN, HLD, CKD3, osteoporosis, chronic ITP presenting with altered mental status. Acutely altered mental status in setting of chronic cognitive decline -Encephalopathy likely secondary to acute infection -Head CT negative -Speech/swallow evaluation ordered. -ECHO: EF 50-55%, no significant changes from 2015 ECHO. -Trend CBC, CMP -Ammonia levels normal on 01/12. -Patient's mental status and lung function improved to 01/13. -Will advance diet as tolerated. Acute bacterial pneumonia superimposed on COVID -CXR- L basilar opacity, small L pleural effusion, cardiomegaly with mild pulmonary edema -Ceftriaxone, azithromycin given in ED -Suspect potential superimposed bacterial pneumonia on COVID-19 infection with procalcitonin 8 -Questionable contribution from aspiration given pt's recent AMS and functional decline -Continue azithromycin, switched ceftriaxone to Unasyn to better cover anaerobes for possible aspiration as above -Continue steroids and DuoNeb -Start remdesivir 100mg IV QD -Trend CBC -MRSA swab negative Atrial fibrillation with RVR -Atrial fibrillation, HRs 100s-110s on admission -Does appear to be new onset, CHADSVASC score > 2 -Given pt's age, thrombocytopenia and fall risk, will defer anticoagulation on admission -S/p IV diltiazem, IV Lopressor x1 in ED with improvement from 140s to 110s -Repeat EKG on 01/13 showed continue Afib w/ RVR. Will give one liter LR @50mL/hr. -Increased metoprolol IV from 5mg to 10mg Q6 on 01/13. Patient still remains in Afib with RVR with the rates 120-140's on 01/14. Ordered a 15mg Cardizem 15mg IV push at this time. -Started Cardizem drip on 01/14. -Telemetry monitoring -Consider cardiology consult and rhythm control if Cardizem drip with the metoprolol does not help. -Trend CMP, Mg -Replete to maintain K > 4, Mg > 2 COVID-19 infection -CXR findings as above -Continue remdesivir -Continue dexamethasone IV 6 mg daily -Pantoprazole 40 mg IV daily for ulcer prophylaxis -On admission required 6L NC. Now on RA. -O2 goal > 94% Elevated troponin -Troponin 28 on admission -Likely due to demand ischemia in setting of AF w/ RVR and acute infection, known CAD -Trend to peak Thrombocytopenia -Plts 68 on admission, baseline appears to be 100-120s -Peripheral smear ordered -Trend CBC CAD s/p LCx stent -Continue lisinopril, metoprolol, pravastatin -Not on any antiplatelet medication likely due to baseline thrombocytopenia HTN -Continue lisinopril 20 mg daily -Continue metoprolol tartrate 50 mg BID HLD -Continue pravastatin 80 mg daily CKD3 -Cr 0.89, at baseline -Renal dosing for medication -Trend CMP Vitamin D deficiency -Continue home vitamin D supplementation FENGI: regular pureed diet, no fluids. Code status: DNR/DNI DVT ppx: SCDs Isolation: COVID PT/OT: ordered Dispo: SNF (2) Dementia: (3) Vitamin D deficiency: (4) Chronic ITP (idiopathic thrombocytopenia): (5) CKD (chronic kidney disease), stage III: (6) Hypertension: (7) Carotid artery disease: (8) Pneumonia: Admission and Anticipated Discharge Date Admission Date: January 11, 2022 Supervising Physician Co-Signing Physician Notes I personally examined the patient and verified all dubois points of history and exam, discussed case, and agree with decision making with Dr Luna Awake and again very disoriented, having a nonsensical conversation with nursingalthough she is eating well as long as nursing feeds her.. Not really able to make any sense of what she is saying, no meaningful HPI review of systems Vitals noted, awake, disoriented, conversing nonsensically, no distress. HEENT normocephalic atraumatic mucous membranes moist. Cardio irregularly irregular mildly tachycardic. Lungs are surprisingly clear no significant rales rhonchi or wheezes good effort no accessory muscle use. Skin shows no rashes no pallor or icterus. Confusion noted but no focal neurodeficits. hypoxia related to secondary bacterial pneumonia superimposed on covid (probable covid pneumonia) with sepsis present on admission with metabolic encephalopathy in the setting of all of the above-showing ongoing improvement, continue zithromax and unasyn. continue steroids, remdesivir (LFTs have been reassuring), continue supportive care, pulmonary toilet. Improving nicely afib/RVR - appearing largely compensatory tachycardia due to above -however, with persistent tachycardia now managing as RVR Continue gentle IV fluids until PO intake improves reliably Dispolikely to need SNF Subjective Patient was seen bedside this AM. She is able to talk and speak in full sentences. She continues to be AnOx1. Review of Systems Review of Systems: Unobtainable due to mental health condition Physical Exam Constitutional: comfortable and + underweight Eyes: PERRL Respiratory: normal respiratory effort, lungs clear to auscultation Cardiovascular: Rate/Rhythm: + tachycardic and + irregularly irregular Gastrointestinal (Abdomen): normal bowel sounds, soft, nontender, no hepatosplenomegaly Musculoskeletal: no cyanosis or clubbing, extremities motor strength 5/5 Skin: no rashes, warm and dry Results & Data Results & Data ([facility]) Vital Signs (Past 12 Hours) Vital Signs Temp Pulse Pulse Resp BP BP Pulse Ox 01/13/22 22:14 122 H 01/14/22 05:13 129 H 132/81 01/14/22 05:03 36.4 C L 115 H 20 132/81 97 01/13/22 23:44 130 H 152/98 H 01/13/22 23:23 36.6 C 109 H 22 152/98 H 96 01/13/22 21:48 01/13/22 19:10 36.6 C 127 H 20 160/93 H 92 O2 Del Method 01/13/22 22:14 01/14/22 05:13 01/14/22 05:03 Room Air 01/13/22 23:44 01/13/22 23:23 Room Air 01/13/22 21:48 Room Air 01/13/22 19:10 Room Air Resident Activity Tracking Resident Involvement: Resident Care Provided Care Provided: Adult Hospital Medicine (1) Dementia Alzheimer's disease onset: late-onset Dementia behavioral disturbance: with behavioral disturbance Dementia type: Alzheimer's disease Qualified Code(s): G30.1 - Alzheimer's disease with late onset; F02.81 - Dementia in other diseases classified elsewhere with behavioral disturbance (2) Hypertension Hypertension type: essential hypertension Qualified Code(s): I10 - Essential (primary) hypertension
[2022-01-14] MEDS ORDERED: dilTIAZem HCl 5 MG/ML 5 ML VIAL IV STA ×2 (06:42→10:19)
[2022-01-14 07:26] LABS: Basophils # (auto) 0.01 K/uL (0-0.2); Basophils % (auto) 0.1 %; Echinocytes 1+; Hematocrit (blood only) 42.9 % (34.1-44.9); Immature Granulocytes # (auto) 0.03 K/uL (0.00-0.02); Immature Granulocytes % (auto) 0.3 %; Lymphocytes # (auto) 0.42 K/uL (1.2-3.4); Lymphocytes % (auto) 4.5 %; Mean Corpuscular Hemoglobin 31.6 pg (25.0-34.0); Mean Corpuscular Volume 90.5 fL (80.0-100.0); Monocytes # (auto) 0.53 K/uL (0.24-0.82); Monocytes % (auto) 5.7 %; Neutrophils # (auto) 8.28 K/uL (1.4-6.5); Neutrophils % (auto) 89.4 %; Platelet Count 73 K/uL (130-400); Polychromasia 1+; RDW Coefficient of Variation 13.5 % (11.5-14.5); RDW Standard Deviation 45.1 fL (36.4-46.3); Red Blood Count 4.74 M/uL (3.93-5.22); White Blood Count 9.27 K/ul (4.8-10.8)
[2022-01-14 07:43] LABS: Albumin Globulin Ratio 0.9 (0.9-2); BUN Creatinine Ratio 48.8 (10-20); Bilirubin,Total 1.5 mg/dl (0.2-1.0); Calcium 8.6 mg/dl (8.5-10.1); Creatinine Clr Calc Pharmacy 42.8 ml/min; Est GFR (Non-African American) 63.9 ml/min; Globulin 3.3 gm/dl (2.5-4.0); Magnesium 1.9 mg/dl (1.7-2.4); Potassium 3.7 mmol/L (3.5-5.1); Total Protein 6.3 gm/dl (6.0-8.3)
[2022-01-14] MEDS: dexAMETHasone 6 MG in SYRINGE 0 ML IV SCH (08:25)
[2022-01-14] MEDS ORDERED: STAT IV Infusion **Titration per Protocol STA (10:19)
[2022-01-14] MEDS: AZITHROMYCIN 500 MG in DEXTROSE 5% 250 ML IV SCH (10:49)
[2022-01-14] MEDS: PANTOprazole 40 MG in SYRINGE 0 ML IV SCH (11:37)
[2022-01-14] MEDS: dilTIAZem HCL 125 MG in DEXTROSE 5% 100 ML IV SCH (11:47)
--- NOTE | 2022-01-14 19:17 | Billing Data ---
Date of Service January 14, 2022 Coding Level of Care Code 37753 Subseq Hosp Care Lvl 3
[2022-01-14] MEDS: REMDESIVIR 100 MG in SODIUM CHLORIDE 0.9% 230 ML IV SCH (20:03)
[2022-01-15] MEDS: METOPROLOL TARTRATE 1 MG/ML VIAL IV SCH ×4 (05:15→23:35)
[2022-01-15] MEDS: AMPICILLIN/SULBACTAM SOD 3,000 MG in 0.9 % SODIUM CHLORIDE 100 ML IV SCH ×2 (05:16→14:11)
[2022-01-15 06:52] LABS: Hematocrit (blood only) 43.3 % (34.1-44.9); Hemoglobin 14.8 g/dl (12.0-16.0); Mean Corpuscular Hemoglobin 31.1 pg (25.0-34.0); Mean Corpuscular Hgb Conc 34.2 g/dL (32.0-36.0); RDW Coefficient of Variation 13.5 % (11.5-14.5); RDW Standard Deviation 45.7 fL (36.4-46.3); Red Blood Count 4.76 M/uL (3.93-5.22); White Blood Count 10.16 K/ul (4.8-10.8)
--- NOTE | 2022-01-15 06:59 | Hospitalist Progress Note ---
Date of Service January 15, 2022 Assessment & Plan (1) Atrial fibrillation with RVR: Plan: 86 yo F with PMH CAD s/p LCx stent, dementia, HTN, HLD, CKD3, osteoporosis, chronic ITP presenting with altered mental status. Acutely altered mental status in setting of chronic cognitive decline -Encephalopathy likely secondary to acute infection -Head CT negative -Speech/swallow evaluation ordered. -ECHO: EF 50-55%, no significant changes from 2015 ECHO. -Trend CBC, CMP -Ammonia levels normal on 01/12. -Patient's mental status and lung function improved to 01/13. -Will advance diet as tolerated. Acute bacterial pneumonia superimposed on COVID -CXR- L basilar opacity, small L pleural effusion, cardiomegaly with mild pulmonary edema -Ceftriaxone, azithromycin given in ED -Suspect potential superimposed bacterial pneumonia on COVID-19 infection with procalcitonin 8 -Questionable contribution from aspiration given pt's recent AMS and functional decline -Started on 01/12 azithromycin, switched ceftriaxone to Unasyn to better cover anaerobes for possible aspiration as above -Azithromycin and Unasyn stopped after 3 days due to the patient clinical improvement. -Continue steroids and DuoNeb. Will start to galilea steroids starting on 01/15 -Continue remdesivir 100mg IV QD for 5-7 days. -Trend CBC -MRSA swab negative Atrial fibrillation with RVR -Atrial fibrillation, HRs 100s-110s on admission -Does appear to be new onset, CHADSVASC score > 2 -Given pt's age, thrombocytopenia and fall risk, will defer anticoagulation on admission -S/p IV diltiazem, IV Lopressor x1 in ED with improvement from 140s to 110s -Repeat EKG on 01/13 showed continue Afib w/ RVR. Will give one liter LR @50mL/hr. -Increased metoprolol IV from 5mg to 10mg Q6 on 01/13. Patient still remains in Afib with RVR with the rates 120-140's on 01/14. Ordered a 15mg Cardizem 15mg IV push at this time. -Started Cardizem drip on 01/14. -Telemetry monitoring -Consider cardiology consult and rhythm control if Cardizem drip with the metoprolol does not help. -Patient is a fib no longer with RVR on 01/15. -Consider switching from IV Cardizem to PO metoprolol prior to D/C. -Trend CMP, Mg -Replete to maintain K > 4, Mg > 2 COVID-19 infection -CXR findings as above -Continue remdesivir -Continue dexamethasone IV 6 mg daily -Pantoprazole 40 mg IV daily for ulcer prophylaxis -On admission required 6L NC. Now on RA. -O2 goal > 94% Elevated troponin -Troponin 28 on admission. -Likely due to demand ischemia in setting of AF w/ RVR and acute infection, known CAD. Thrombocytopenia -Plts 68 on admission, baseline appears to be 100-120s -Peripheral smear ordered -Trend CBC CAD s/p LCx stent -Continue lisinopril, metoprolol, pravastatin -Not on any antiplatelet medication likely due to baseline thrombocytopenia HTN -Continue lisinopril 20 mg daily -Continue metoprolol tartrate 50 mg BID HLD -Continue pravastatin 80 mg daily CKD3 -Cr 0.89, at baseline -Renal dosing for medication -Trend CMP Vitamin D deficiency -Continue home vitamin D supplementation FENGI: regular pureed diet, no fluids. Code status: DNR/DNI DVT ppx: SCDs Isolation: COVID PT/OT: ordered Dispo: SNF (2) Dementia: (3) Vitamin D deficiency: (4) Chronic ITP (idiopathic thrombocytopenia): (5) CKD (chronic kidney disease), stage III: (6) Hypertension: (7) Carotid artery disease: (8) Pneumonia: Admission and Anticipated Discharge Date Admission Date: January 11, 2022 Supervising Physician Co-Signing Physician Notes I personally examined the patient and verified all dubois points of history and exam, discussed case, and agree with decision making with Dr Cheryl bourne a little during exam. Again noncommunicative in a meaningful way. Vitals noted, awake, disoriented, conversing nonsensically, no distress. HEENT normocephalic atraumatic mucous membranes moist. Cardio irregularly irregular rate now controlled. Lungs remain clear no significant rales rhonchi or wheezes good effort no accessory muscle use. Skin shows no rashes no pallor or icterus. Confusion noted but no focal neurodeficits. hypoxia related to secondary bacterial pneumonia superimposed on covid (probable covid pneumonia) with sepsis present on admission with metabolic encephalopathy in the setting of all of the above-showing ongoing improvement, finished 3 days of Zithromax 500. Continue Unasyn for 5 to 7 days total. Wean steroids. Consider stopping remdesivir. afib/RVR - appearing largely compensatory tachycardia due to above -however, with persistent tachycardia now managing as RVRrates controlled, transition to p.o. Continue gentle IV fluids until PO intake improves reliably Dispolikely to need SNF Subjective Patient was seen bedside this AM. She is able to talk and speak in full sentences. She continues to be AnOx1. Review of Systems Review of Systems: Unobtainable due to cognitive status Physical Exam Constitutional: + ill appearing, + disheveled, comfortable, + lethargic and + underweight Eyes: PERRL Neck: trachea midline, no thyromegaly Respiratory: normal respiratory effort, lungs clear to auscultation + tachypneic Auscultation: + rhonchi Cardiovascular: Rate/Rhythm: + tachycardic and + irregularly irregular Gastrointestinal (Abdomen): normal bowel sounds, soft, nontender, no hepatosplenomegaly Musculoskeletal: no cyanosis or clubbing, extremities motor strength 5/5 Skin: no rashes, warm and dry Psychiatric: Orientation: oriented to person; + not oriented to place and + not oriented to time Results & Data Results & Data ([facility]) Vital Signs (Past 12 Hours) Vital Signs Temp Pulse Pulse Resp BP BP BP 01/15/22 03:01 36.6 C 100 H 16 150/99 H 01/14/22 23:19 97 H 161/93 H 01/14/22 22:34 36.4 C L 100 H 18 161/93 H 01/14/22 20:19 36.5 C 106 H 16 137/86 Pulse Ox O2 Del Method 01/15/22 03:01 95 Room Air 01/14/22 23:19 01/14/22 22:34 95 Room Air 01/14/22 20:19 94 Room Air Resident Activity Tracking Resident Involvement: Resident Care Provided Care Provided: Adult Hospital Medicine (1) Dementia Alzheimer's disease onset: late-onset Dementia behavioral disturbance: with behavioral disturbance Dementia type: Alzheimer's disease Qualified Code(s): G30.1 - Alzheimer's disease with late onset; F02.81 - Dementia in other diseases classified elsewhere with behavioral disturbance (2) Hypertension Hypertension type: essential hypertension Qualified Code(s): I10 - Essential (primary) hypertension
[2022-01-15 07:15] LABS: Albumin Level 3.2 gm/dl (3.4-5.0); BUN Creatinine Ratio 43.9 (10-20); Bilirubin Direct 0.4 mg/dl (0-0.2); Bilirubin,Total 1.3 mg/dl (0.2-1.0); Calcium 8.4 mg/dl (8.5-10.1); Creatinine Clr Calc Pharmacy 53.3 ml/min; Est GFR (African American) 91.4 ml/min; Est GFR (Non-African American) 78.9 ml/min; Globulin 3.2 gm/dl (2.5-4.0); Magnesium 1.7 mg/dl (1.7-2.4); Potassium 3.5 mmol/L (3.5-5.1); Total Protein 6.4 gm/dl (6.0-8.3)
[2022-01-15 07:47] LABS: Basophils # (auto) 0.01 K/uL (0-0.2); Basophils % (auto) 0.1 %; Immature Granulocytes # (auto) 0.05 K/uL (0.00-0.02); Immature Granulocytes % (auto) 0.5 %; Lymphocytes # (auto) 0.44 K/uL (1.2-3.4); Lymphocytes % (auto) 4.3 %; Mean Platelet Volume 13.8 fL (9.4-12.3); Monocytes # (auto) 0.69 K/uL (0.24-0.82); Monocytes % (auto) 6.8 %; Neutrophils # (auto) 8.97 K/uL (1.4-6.5); Neutrophils % (auto) 88.3 %; Platelet Count 81 K/uL (130-400)
[2022-01-15] MEDS ORDERED: dexAMETHasone 2 MG in SYRINGE 0 ML IV SCH (09:00)
[2022-01-15] MEDS: dilTIAZem HCL 125 MG in DEXTROSE 5% 100 ML IV SCH (10:46)
[2022-01-15] MEDS: AZITHROMYCIN 500 MG in DEXTROSE 5% 250 ML IV SCH (10:46)
[2022-01-15] MEDS: PANTOprazole 40 MG in SYRINGE 0 ML IV SCH (10:47)
--- NOTE | 2022-01-15 18:59 | Billing Data ---
Date of Service January 15, 2022 Coding Level of Care Code 17828 Subseq Hosp Care Lvl 3
--- NOTE | 2022-01-15 18:59 | Billing Data ---
Date of Service January 15, 2022 Coding Level of Care Code 32344 Subseq Hosp Care Lvl 3
[2022-01-15] MEDS: REMDESIVIR 100 MG in SODIUM CHLORIDE 0.9% 230 ML IV SCH (19:40)
[2022-01-16] MEDS: METOPROLOL TARTRATE 1 MG/ML VIAL IV SCH (05:44)
--- NOTE | 2022-01-16 06:55 | Hospitalist Progress Note ---
Date of Service January 16, 2022 Assessment & Plan (1) Atrial fibrillation with RVR: Plan: Pt is an 86 yo female with PMH CAD s/p LCx stent, dementia, HTN, HLD, CKD3, osteoporosis, chronic ITP presenting with altered mental status. Acutely altered mental status in setting of chronic cognitive decline -Encephalopathy likely secondary to acute infection -Head CT negative -Speech/swallow evaluation ordered. -ECHO: EF 50-55%, no significant changes from 2015 ECHO. -Trend CBC, CMP -Ammonia levels normal on 01/12. -Patient's mental status and lung function improved to 01/13. -Will advance diet as tolerated. - pt currently pending placement to SNF Acute bacterial pneumonia superimposed on COVID -CXR- L basilar opacity, small L pleural effusion, cardiomegaly with mild pulmonary edema -Ceftriaxone, azithromycin given in ED -Suspect potential superimposed bacterial pneumonia on COVID-19 infection with procalcitonin 8 -Questionable contribution from aspiration given pt's recent AMS and functional decline -Started on 01/12 azithromycin, switched ceftriaxone to Unasyn to better cover anaerobes for possible aspiration as above -Azithromycin and Unasyn stopped after 3 days due to the patient clinical improvement. -Continue DuoNeb PRN - Given 3 daily doses of 6 mg dexamethasone, steroid taper began 01/15 with 2mg, steroids d/c today -d/c remdesivir 100mg IV QD- pt received 4 doses - began augmentin 875 mg BID 01/16 -Trend CBC -MRSA swab negative Atrial fibrillation with RVR -Atrial fibrillation, HRs 100s-110s on admission -Does appear to be new onset, CHADSVASC score > 2 -Given pt's age, thrombocytopenia and fall risk, will defer anticoagulation on admission -S/p IV diltiazem, IV Lopressor x1 in ED with improvement from 140s to 110s -Repeat EKG on 01/13 showed continue Afib w/ RVR. Will give one liter LR @50mL/hr. -Increased metoprolol IV from 5mg to 10mg Q6 on 01/13. Patient still remains in Afib with RVR with the rates 120-140's on 01/14. Ordered a 15mg Cardizem 15mg IV push at this time. -Started Cardizem drip on 01/14. -Telemetry monitoring -Consider cardiology consult and rhythm control if Cardizem drip with the metoprolol does not help. -pt no longer in RVR -IV cardizem d/c, began PO cardizem 30 mg TID and metoprolol 50 mg BID -Trend CMP, Mg -Replete to maintain K > 4, Mg > 2 - K at 3.6 this AM, given 10 meq x4 bags - Mg at 1.8 this AM, given 1 g x2 bags COVID-19 infection -CXR findings as above -d/c remdesivir, 4 total doses given -d/c dexamethasone taper -Pantoprazole 40 mg IV daily for ulcer prophylaxis -On admission required 6L NC. Now on RA. -O2 goal > 94% Elevated troponin -Troponin 28 on admission, highest at 36.9 -Likely due to demand ischemia in setting of AF w/ RVR and acute infection, known CAD. Thrombocytopenia -Plts 68 on admission, baseline appears to be 100-120s -Today at 108 -Trend CBC CAD s/p LCx stent -Continue lisinopril, metoprolol, pravastatin -Not on any antiplatelet medication likely due to baseline thrombocytopenia HTN -Continue lisinopril 20 mg daily -Continue metoprolol tartrate 50 mg BID HLD -Continue pravastatin 80 mg daily CKD3 -Cr 0.77 today -Renal dosing for medication -Trend CMP Vitamin D deficiency -Continue home vitamin D supplementation (2) Dementia: (3) Vitamin D deficiency: (4) Chronic ITP (idiopathic thrombocytopenia): (5) CKD (chronic kidney disease), stage III: (6) Hypertension: (7) Carotid artery disease: (8) Pneumonia: Plan FEN: regular pureed diet, no fluids; K 40 meq and Mg 2g IV repletion Code status: DNR/DNI DVT ppx: SCDs Isolation: COVID PT/OT: ordered Dispo: SNF Admission and Anticipated Discharge Date Admission Date: January 11, 2022 Supervising Physician Co-Signing Physician Notes I personally examined the patient and verified all dubois points of history and exam, discussed case, and agree with decision making with Dr Luna Again mostly asleep. No meaningful HPI review of systems. Vitals noted, awake, disoriented, conversing nonsensically, no distress. HEENT normocephalic atraumatic mucous membranes moist. Cardio irregularly irregular rate remains controlled. Lungs clear no significant rales rhonchi or wheezes good effort no accessory muscle use. Skin shows no rashes no pallor or icterus. Confusion noted but no focal neuro deficits. hypoxia related to secondary bacterial pneumonia superimposed on covid (probable covid pneumonia) with sepsis present on admission with metabolic encephalopathy in the setting of all of the above-showing ongoing improvement, finished 3 days of Zithromax 500. Transitioned Unasyn to Augmentin. Treat for 5 to 7 days total of beta-lactam/beta-lactamase. Stop steroids. Remdesivir stopped afib/RVR -now rate controlled. Switching to p.o. diltiazem and metoprolol off IVF Dispolikely to need SNF Subjective 01/16/2022: Pt is arousable this morning and able to answer simple questions. Pt denies pain or discomfort. Physical Exam Constitutional: NAD. Vitals WNL. A+O x1. Respiratory: CTA bilaterally. No rhonchi, wheezing, or crackles. Non labored breathing. Cardiovascular: Irregularly irregular heart rhythm. Normal rate. No murmur noted. No LL edema. Gastrointestinal (Abdomen): Nontender, +BS. No masses noted. Skin: No rashes noted. Dry, flaky skin noted on bilateral LE. Results & Data Results & Data ([facility]) Vital Signs (Past 12 Hours) Vital Signs Temp Pulse Pulse Resp BP BP Pulse Ox 01/16/22 05:44 83 152/85 H 01/16/22 05:41 36.6 C 76 16 152/85 H 94 01/16/22 03:21 36.6 C 73 16 122/81 97 01/15/22 22:15 68 01/16/22 01:00 01/15/22 23:35 85 143/82 H 01/15/22 22:57 36.4 C 85 18 139/96 95 01/15/22 19:30 01/15/22 19:53 36.4 C L 72 16 144/82 H 94 Pulse Ox O2 Del Method O2 Del Method 01/16/22 05:44 01/16/22 05:41 Room Air 01/16/22 03:21 Room Air 01/15/22 22:15 01/16/22 01:00 95 Room Air 01/15/22 23:35 01/15/22 22:57 Room Air 01/15/22 19:30 Room Air 01/15/22 19:53 Room Air Resident Activity Tracking Resident Involvement: Resident Care Provided Care Provided: Adult Hospital Medicine (1) Dementia Alzheimer's disease onset: late-onset Dementia behavioral disturbance: with behavioral disturbance Dementia type: Alzheimer's disease Qualified Code(s): G30.1 - Alzheimer's disease with late onset; F02.81 - Dementia in other diseases classified elsewhere with behavioral disturbance (2) Hypertension Hypertension type: essential hypertension Qualified Code(s): I10 - Essential (primary) hypertension
[2022-01-16 07:26] LABS: Hematocrit (blood only) 46.1 % (34.1-44.9); Hemoglobin 15.8 g/dl (12.0-16.0); Mean Corpuscular Hemoglobin 31.2 pg (25.0-34.0); Mean Corpuscular Hgb Conc 34.3 g/dL (32.0-36.0); Mean Corpuscular Volume 90.9 fL (80.0-100.0); RDW Coefficient of Variation 13.5 % (11.5-14.5); RDW Standard Deviation 45.7 fL (36.4-46.3); Red Blood Count 5.07 M/uL (3.93-5.22); White Blood Count 8.61 K/ul (4.8-10.8)
[2022-01-16 07:29] LABS: Basophils # (auto) 0.02 K/uL (0-0.2); Basophils % (auto) 0.2 %; Immature Granulocytes # (auto) 0.09 K/uL (0.00-0.02); Lymphocytes # (auto) 0.63 K/uL (1.2-3.4); Lymphocytes % (auto) 7.3 %; Mean Platelet Volume 13.3 fL (9.4-12.3); Monocytes # (auto) 0.76 K/uL (0.24-0.82); Monocytes % (auto) 8.8 %; Neutrophils # (auto) 7.11 K/uL (1.4-6.5); Neutrophils % (auto) 82.7 %; Platelet Count 108 K/uL (130-400)
[2022-01-16 07:46] LABS: Albumin Level 3.3 gm/dl (3.4-5.0); BUN Creatinine Ratio 32.5 (10-20); Bilirubin,Total 1.3 mg/dl (0.2-1.0); Calcium 8.8 mg/dl (8.5-10.1); Creatinine Clr Calc Pharmacy 44.6 ml/min; Est GFR (African American) 79.9 ml/min; Est GFR (Non-African American) 68.9 ml/min; Globulin 3.4 gm/dl (2.5-4.0); Magnesium 1.8 mg/dl (1.7-2.4); Potassium 3.6 mmol/L (3.5-5.1); Total Protein 6.7 gm/dl (6.0-8.3)
[2022-01-16] MEDS: METOPROLOL TARTRATE 50 MG TAB PO SCH ×2 (08:21→20:58)
[2022-01-16] MEDS: AMOXICILLIN/CLAVULANATE 875 MG TAB PO SCH ×2 (09:43→17:21)
[2022-01-16] MEDS: dilTIAZem HCL 30 MG TAB PO SCH ×3 (09:43→20:59)
[2022-01-16] MEDS: PANTOprazole 40 MG in SYRINGE 0 ML IV SCH (11:00)
[2022-01-16] MEDS: POTASSIUM CHLORIDE / WTR 10 MEQ/100 ML PLCT IV SCH ×4 (11:00→16:06)
[2022-01-16] MEDS: MAGNESIUM SULFATE / D5W 1 GM/100 ML BAG IV SCH ×2 (11:15→13:18)
--- NOTE | 2022-01-16 17:06 | Billing Data ---
Date of Service January 16, 2022 Coding Level of Care Code 04420 Subseq Hosp Care Lvl 3
--- NOTE | 2022-01-16 23:00 | Electrocardiogram Report ---
Test Reason : Blood Pressure : / mmHG Vent. Rate : 091 BPM Atrial Rate : 088 BPM P-R Int : 000 ms QRS Dur : 078 ms QT Int : 356 ms P-R-T Axes : 000 055 067 degrees QTc Int : 437 ms Atrial fibrillation Nonspecific T wave abnormality Abnormal ECG When compared with ECG of 13-JAN-2022 07:33, No significant change was found Confirmed by Kamaljit Chavez ([id number]) on 01/16/2022 11:00:31 PM Referred By: REFERRED SELF Confirmed By:Kamaljit Chavez
[2022-01-17 06:43] LABS: Hematocrit (blood only) 45.2 % (34.1-44.9); Hemoglobin 15.7 g/dl (12.0-16.0); Mean Corpuscular Hemoglobin 31.7 pg (25.0-34.0); Mean Corpuscular Hgb Conc 34.7 g/dL (32.0-36.0); Mean Corpuscular Volume 91.1 fL (80.0-100.0); RDW Coefficient of Variation 13.3 % (11.5-14.5); RDW Standard Deviation 44.7 fL (36.4-46.3); Red Blood Count 4.96 M/uL (3.93-5.22); White Blood Count 7.98 K/ul (4.8-10.8)
--- NOTE | 2022-01-17 06:51 | Hospitalist Progress Note ---
Date of Service January 17, 2022 Assessment & Plan (1) Atrial fibrillation with RVR: Plan: Pt is an 86 yo female with PMH CAD s/p LCx stent, dementia, HTN, HLD, CKD3, osteoporosis, chronic ITP presenting with altered mental status. Acutely altered mental status in setting of chronic cognitive decline -Encephalopathy likely secondary to acute infection -Head CT negative -Speech/swallow evaluation ordered. -ECHO: EF 50-55%, no significant changes from 2015 ECHO. -Ammonia levels normal on 01/12. -Patient's mental status and lung function improved to 01/13. -Pt currently pending placement to SNF Acute bacterial pneumonia superimposed on COVID -CXR showed left basilar opacity, small left pleural effusion, cardiomegaly with mild pulmonary edema -Ceftriaxone, azithromycin given in ED -Suspect potential superimposed bacterial pneumonia on COVID-19 infection with procalcitonin 8 -Questionable contribution from aspiration given pt's recent AMS and functional decline -Started on 01/12 azithromycin, switched ceftriaxone to Unasyn to better cover anaerobes for possible aspiration as above - MRSA nares neg -Azithromycin and Unasyn stopped after 3 days due to the patient clinical improvement -Continue DuoNeb PRN - Given 3 daily doses of 6 mg dexamethasone, steroid taper began 01/15 with 2mg, steroids d/c 01/16 -d/c remdesivir 100mg IV QD- pt received 4 doses - began augmentin 875 mg BID 01/16 Atrial fibrillation with RVR -Atrial fibrillation, HRs 100s-110s on admission -Does appear to be new onset, CHADSVASC score > 2 -Given pt's age, thrombocytopenia and fall risk, will defer anticoagulation on admission -S/p IV diltiazem, IV Lopressor x1 in ED with improvement from 140s to 110s -Repeat EKG on 01/13 showed continue Afib w/ RVR. Will give one liter LR @50mL/hr. -Increased metoprolol IV from 5mg to 10mg Q6 on 01/13. Patient still remained in Afib with RVR with the rates 120-140's on 01/14. Ordered a 15mg Cardizem 15mg IV push at that time. -Started Cardizem drip on 01/14 with telemetry monitoring -IV cardizem d/c, began PO cardizem 30 mg TID and metoprolol 50 mg BID 01/16 - No further episodes of RVR with PO meds, transferred to med/surg w/o telemetry 01/17 COVID-19 infection -CXR findings as above -d/c remdesivir, 4 total doses given -d/c dexamethasone taper -On admission required 6L NC. Now on RA. Hypokalemia - 3.9 this AM - stable Hypomagnesemia - 1.9 this AM - stable Elevated troponin -Troponin 28 on admission, highest at 36.9 -Likely due to demand ischemia in setting of AF w/ RVR and acute infection, known CAD. Thrombocytopenia -Plts 68 on admission, baseline appears to be 100-120s -Today at 110 CAD s/p LCx stent -Continue lisinopril, metoprolol, pravastatin -Not on any antiplatelet medication likely due to baseline thrombocytopenia HTN -Continue lisinopril 20 mg daily HLD -Continue pravastatin 80 mg daily CKD3 -Cr 0.72 today -Renal dosing for medication Vitamin D deficiency -Continue home vitamin D supplementation (2) Dementia: (3) Vitamin D deficiency: (4) Chronic ITP (idiopathic thrombocytopenia): (5) CKD (chronic kidney disease), stage III: (6) Hypertension: (7) Carotid artery disease: (8) Pneumonia: Plan FEN: regular pureed diet Code status: DNR/DNI DVT ppx: SCDs Isolation: COVID PT/OT: ordered Dispo: med/surg today, then ok for SNF when possible Admission and Anticipated Discharge Date Admission Date: January 11, 2022 Supervising Physician Co-Signing Physician Notes I personally examined the patient and verified all dubois points of history and exam, discussed case, and agree with decision making with Dr Colon Again mostly asleep. No meaningful HPI review of systems. agitated most of the night and day Vitals noted, awake, disoriented, conversing nonsensically, no distress. HEENT normocephalic atraumatic mucous membranes moist. Cardio irregularly irregular rate remains controlled. Lungs clear no significant rales rhonchi or wheezes good effort no accessory muscle use. Skin shows no rashes no pallor or icterus. Confusion noted but no focal neuro deficits. hypoxia related to secondary bacterial pneumonia superimposed on covid (probable covid pneumonia) with sepsis present on admission with metabolic encephalopathy in the setting of all of the above-showing ongoing improvement, finished 3 days of Zithromax 500. Transitioned Unasyn to Augmentin. Treat for 5 to 7 days total of beta-lactam/beta-lactamase. Stopped steroids. Remdesivir stopped afib/RVR -now rate controlled. Switched to p.o. diltiazem and metoprolol and rates have remained controlled Dementia with agitationnormally on Nuplazid at homethis is unfortunately not been brought in, and is not on formulary. Until today the plan was watchful waiting, but now that she is getting more agitated, pharmacy noted that Seroquel would be the most similar that we have on formularytherefore we will start at 25 at bedtime off IVF Dispostable for transfer to [facility], will need SNF on discharge Subjective Pt is an 86 yo female with PMH CAD s/p LCx stent, dementia, HTN, HLD, CKD3, osteoporosis, chronic ITP presenting with altered mental status. Pt sleeping when I entered the room. Pt awoke easily and was somewhat conversational. She was able to answer few questions. She does not appear to be in any distress and she is resting comfortably. Physical Exam Constitutional: NAD. Vitals WNL. Eyes: no conjunctival abnormality Respiratory: CTA bilaterally. No rhonchi, wheezing, or crackles. Non labored breathing. Cardiovascular: Irregular rhythm. Regular rate. No murmur noted. No LL edema. Skin: no rashes, warm and dry Results & Data Results & Data ([facility]) Vital Signs (Past 12 Hours) Vital Signs Temp Pulse Pulse Resp BP Pulse Ox O2 Del Method 01/16/22 22:25 80 01/16/22 20:00 Room Air 01/17/22 03:06 36.5 C 86 18 155/94 H 95 Room Air 01/16/22 22:49 36.4 C 81 16 152/119 H 98 Room Air 01/16/22 19:49 36.8 C 81 20 147/68 H 93 Room Air Resident Activity Tracking Resident Involvement: Resident Care Provided Care Provided: Adult Hospital Medicine (1) Dementia Alzheimer's disease onset: late-onset Dementia behavioral disturbance: with behavioral disturbance Dementia type: Alzheimer's disease Qualified Code(s): G30.1 - Alzheimer's disease with late onset; F02.81 - Dementia in other diseases classified elsewhere with behavioral disturbance (2) Hypertension Hypertension type: essential hypertension Qualified Code(s): I10 - Essential (primary) hypertension
[2022-01-17 07:09] LABS: Albumin Level 3.3 gm/dl (3.4-5.0); BUN Creatinine Ratio 36.1 (10-20); Bilirubin,Total 1.2 mg/dl (0.2-1.0); Calcium 8.8 mg/dl (8.5-10.1); Est GFR (African American) 86.7 ml/min; Est GFR (Non-African American) 74.8 ml/min; Globulin 3.4 gm/dl (2.5-4.0); Magnesium 1.9 mg/dl (1.7-2.4); Potassium 3.9 mmol/L (3.5-5.1); Total Protein 6.7 gm/dl (6.0-8.3)
[2022-01-17 07:22] LABS: Basophils # (auto) 0.03 K/uL (0-0.2); Basophils % (auto) 0.4 %; Eosinophils # (auto) 0.01 K/uL (0-0.50); Eosinophils % (auto) 0.1 %; Immature Granulocytes # (auto) 0.14 K/uL (0.00-0.02); Immature Granulocytes % (auto) 1.8 %; Lymphocytes # (auto) 0.68 K/uL (1.2-3.4); Lymphocytes % (auto) 8.5 %; Mean Platelet Volume 13.1 fL (9.4-12.3); Monocytes # (auto) 0.89 K/uL (0.24-0.82); Monocytes % (auto) 11.2 %; Neutrophils # (auto) 6.23 K/uL (1.4-6.5); Platelet Count 110 K/uL (130-400)
[2022-01-17] MEDS: AMOXICILLIN/CLAVULANATE 875 MG TAB PO SCH ×2 (08:40→16:42)
[2022-01-17] MEDS: dilTIAZem HCL 30 MG TAB PO SCH ×3 (08:41→21:30)
[2022-01-17] MEDS: METOPROLOL TARTRATE 50 MG TAB PO SCH ×2 (08:45→21:30)
[2022-01-17] MEDS: PANTOprazole 40 MG in SYRINGE 0 ML IV SCH (11:27)
[2022-01-17] MEDS ORDERED: LOPERAMIDE HCL 2 MG CAP PO PRN (14:00)
[2022-01-17] MEDS ORDERED: ACETAMINOPHEN 325 MG TAB PO PRN (14:20)
--- NOTE | 2022-01-17 18:11 | Billing Data ---
Date of Service January 17, 2022 Coding Level of Care Code 08522 Subseq Hosp Care Lvl 3
--- NOTE | 2022-01-17 18:11 | Billing Data ---
Date of Service January 17, 2022 Coding Level of Care Code 78306 Subseq Hosp Care Lvl 3
[2022-01-17] MEDS: QUEtiapine FUMARATE 25 MG TABLET PO SCH (21:30)
--- NOTE | 2022-01-18 07:19 | Hospitalist Progress Note ---
Date of Service January 18, 2022 - No chest pain, ongoing cough, no abdominal pain, or pleuritic pain - AOx0 - No meaningful hx Assessment & Plan (1) Atrial fibrillation with RVR: Plan: Pt is an 86 yo female with PMH CAD s/p LCx stent, dementia, HTN, HLD, CKD3, oste oporosis, chronic ITP presenting with altered mental status. Acutely altered mental status in setting of chronic cognitive decline - Encephalopathy likely secondary to acute infection - Head CT negative - Speech/swallow re-evaluation requested by nursing 01/18 - ECHO: EF 50-55%, no significant changes from 2014 ECHO. - Ammonia levels normal on 01/12. - Patient's mental status and lung function improved to 01/13. - Received seroquel 01/17 overnight d/t agitation - Pt currently pending placement to SNF Acute bacterial pneumonia superimposed on COVID - CXR showed left basilar opacity, small left pleural effusion, cardiomegaly with mild pulmonary edema - Ceftriaxone, azithromycin given in ED - Suspect potential superimposed bacterial pneumonia on COVID-19 infection with procalcitonin 8 -Questionable contribution from aspiration given pt's recent AMS and functional decline - Started on 01/12 azithromycin, switched ceftriaxone to Unasyn to better cover anaerobes for possible aspiration as above - MRSA nares neg - Azithromycin and Unasyn stopped after 3 days due to the patient clinical improvement - Continue DuoNeb PRN - Given 3 daily doses of 6 mg dexamethasone, steroid taper began 01/15 with 2mg, steroids d/c 01/16 - d/c Remdesivir 100mg IV QD- pt received 4 doses - began Augmentin 875 mg BID 01/16 - discontinue antibiotics 01/18 d/t completed 7 day course Atrial fibrillation with RVR - Atrial fibrillation, HRs 100s-110s on admission - Does appear to be new onset, CHADSVASC score > 2 -Given pt's age, thrombocytopenia and fall risk, will defer anticoagulation on admission - S/p IV diltiazem, IV Lopressor x1 in ED with improvement from 140s to 110s - Repeat EKG on 01/13 showed continue Afib w/ RVR. Will give one liter LR @50mL/hr. - Increased metoprolol IV from 5mg to 10mg Q6 on 01/13. Patient still remained in Afib with RVR with the rates 120-140's on 01/14. Ordered a 15mg Cardizem 15mg IV push at that time. - Started Cardizem drip on 01/14 with telemetry monitoring - IV cardizem d/c, began PO cardizem 30 mg TID and metoprolol 50 mg BID 01/16 - No further episodes of RVR with PO meds, transferred to med/surg w/o telemetry 01/17 --- Increased Cardizem to 30 mg Q6h --- Started prophylactic anticoagulation 01/18, discuss therapeutic dosing w/ family COVID-19 infection - CXR findings as above - d/c remdesivir, 4 total doses given - d/c dexamethasone taper - On admission required 6L NC. Now on RA. Hypokalemia - 3.9 this AM - stable Hypomagnesemia - 1.9 this AM - stable Elevated troponin - Troponin 28 on admission, highest at 36.9 - Likely due to demand ischemia in setting of AF w/ RVR and acute infection, known CAD. 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 and benefits with family HTN -Continue lisinopril 20 mg daily --- Will consider restart Lisinopril in AM 01/19 HLD -Continue pravastatin 80 mg daily --- Restarted Statin 01/18 CKD3 - Cr 0.72 on admission - Cr 0/74 on 01/18 - Continue renal dosing for medication Vitamin D deficiency -Continue home vitamin D supplementation (2) Dementia: (3) Vitamin D deficiency: (4) Chronic ITP (idiopathic thrombocytopenia): (5) CKD (chronic kidney disease), stage III: (6) Hypertension: (7) Carotid artery disease: (8) Pneumonia: Plan FEN: Regular pureed diet, speech eval pending Code status: DNR/DNI DVT ppx: SCDs, started Lovenox 01/18 Isolation: COVID + PT/OT: Ordered Dispo: D/c to SNF, pending placement Admission and Anticipated Discharge Date Admission Date: January 11, 2022 Supervising Physician Co-Signing Physician Notes I also saw the patient confirmed dubois portions of the history and physical examination. Exam 150/99, 83, 17, 36.7, 90% on room air Upon examination, the patient has her gown pulled up over her head. We repositioned her gown; she was sleeping but awakens as we do so. She smiles/nods. She did not answer questions. Overall, exam seems consistent with previously documented exams. Data Platelet count 96,000 Sodium 139, potassium 3.9, BUN 18, creatinine 0.74 Total bilirubin 1.4 Impression and plan Metabolic encephalopathy COVID Secondary pneumonia with hypoxia Atrial fibrillation with rapid ventricular response Dementia with agitation I agree with the impression and plan as noted in the resident documentation Will stop Augmentin after day 7 Change Cardizem to 120 mg CD Continue Toprol Monitor heart rate closely Continue Seroquel which is most similar to the Nuplazid she takes at home Subjective Pt is an 86 yo female with PMH CAD s/p LCx stent, dementia, HTN, HLD, CKD3, osteoporosis, chronic ITP presenting with altered mental status. 01/18: No meaningful history. Patient denied pain. Patient appeared comfortable on evaluation. Nursing noted worsening agitation and refusal to eat 0800. 1600 Nursing noted difficulty swallowing, reached out to speech for repeat evaluation, patient is having difficulty swallowing meds, has been requiring them mixed in pudding. Review of Systems Review of Systems: As per HPI Physical Exam Physical Exam: Gen: NAD, responsive to verbal cues, AO x 0, confused Resp:Non-labored, no wheezing/rhonchi/rales, CTAB, audible cough (upper airway) CV:irregular rhythm, rate controlled, normal S1/S2, no M/R/G Abd: Soft, non-distended, no TTP, normoactive bowels, no masses Extr: 2+ dp bilaterally, no edema Skin: No rashes lesions or erythema Results & Data Results & Data ([facility]) Vital Signs (Past 12 Hours) Vital Signs Temp Pulse Pulse Resp BP Pulse Ox O2 Del Method 01/17/22 20:00 Room Air 01/17/22 22:20 85 01/18/22 00:40 36.7 C 85 16 153/85 H 98 Room Air 01/17/22 19:32 98 H 18 157/104 H 97 Room Air Resident Activity Tracking Resident Involvement: Resident Care Provided Care Provided: Adult Hospital Medicine (1) Dementia Alzheimer's disease onset: late-onset Dementia behavioral disturbance: with behavioral disturbance Dementia type: Alzheimer's disease Qualified Code(s): G30.1 - Alzheimer's disease with late onset; F02.81 - Dementia in other diseases classified elsewhere with behavioral disturbance (2) Hypertension Hypertension type: essential hypertension Qualified Code(s): I10 - Essential (primary) hypertension
[2022-01-18 07:50] LABS: Hematocrit (blood only) 47.9 % (34.1-44.9); Hemoglobin 15.8 g/dl (12.0-16.0); Mean Corpuscular Hemoglobin 31.1 pg (25.0-34.0); Mean Corpuscular Volume 94.3 fL (80.0-100.0); Mean Platelet Volume 12.5 fL (9.4-12.3); Platelet Count 96 K/uL (130-400); RDW Coefficient of Variation 13.3 % (11.5-14.5); RDW Standard Deviation 46.9 fL (36.4-46.3); Red Blood Count 5.08 M/uL (3.93-5.22); White Blood Count 6.62 K/ul (4.8-10.8)
[2022-01-18 09:20] LABS: Albumin Globulin Ratio 0.9 (0.9-2); Albumin Level 3.2 gm/dl (3.4-5.0); BUN Creatinine Ratio 24.3 (10-20); Bilirubin,Total 1.4 mg/dl (0.2-1.0); Calcium 8.6 mg/dl (8.5-10.1); Creatinine Clr Calc Pharmacy 44.3 ml/min; Est GFR (African American) 83.8 ml/min; Est GFR (Non-African American) 72.3 ml/min; Globulin 3.4 gm/dl (2.5-4.0); Magnesium 1.8 mg/dl (1.7-2.4); Potassium 3.9 mmol/L (3.5-5.1); Total Protein 6.6 gm/dl (6.0-8.3)
[2022-01-18] MEDS: AMOXICILLIN/CLAVULANATE 875 MG TAB PO SCH ×3 (09:25→17:15)
[2022-01-18] MEDS: dilTIAZem HCL 30 MG TAB PO SCH ×4 (09:25→21:00)
[2022-01-18] MEDS: METOPROLOL TARTRATE 50 MG TAB PO SCH ×2 (09:26→21:00)
[2022-01-18] MEDS: ENOXAPARIN INJ 40 MG/0.4 ML SYR SQ SCH (15:21)
[2022-01-18] MEDS: QUEtiapine FUMARATE 25 MG TABLET PO SCH (21:00)
[2022-01-19] MEDS ORDERED: MAGNESIUM SULFATE / D5W 1 GM/100 ML BAG IV ONE (03:56)
[2022-01-19] MEDS ORDERED: POTASSIUM CHLORIDE / WTR 10 MEQ/100 ML PLCT IV ONE (03:56)
--- NOTE | 2022-01-19 03:58 | Communication Note ---
Date of Service: January 19, 2022 Notified by nursing at 4AM of HR 120s-140s. Patient had refused PO meds (metoprolol and diatezem this evening). Has baseline severe dementia. Ordering prn IV Lopressor 5 up to 3 doses. Repleting w/ 10meq IV KCl and 1gm IV Mg per K 3.9 and Mg 1.8 morning of 01/18. 610AM: HR maintaining 110s. s/p 3 doses of Lopressor. Per nursing, patient still refusing PO meds.
[2022-01-19] MEDS: METOPROLOL TARTRATE 1 MG/ML VIAL IV PRN ×3 (04:15→05:07)
[2022-01-19] MEDS: dilTIAZem HCL 30 MG TAB PO SCH ×2 (04:23→11:11)
[2022-01-19] MEDS ORDERED: dilTIAZem HCl 5 MG/ML 5 ML VIAL IV STA ×3 (06:53→11:33)
--- NOTE | 2022-01-19 07:18 | Hospitalist Progress Note ---
Date of Service January 19, 2022 Assessment & Plan (1) Atrial fibrillation with RVR: Plan: Pt is an 86 yo female with PMH CAD s/p LCx stent, dementia, HTN, HLD, CKD3, osteoporosis, chronic ITP presenting with altered mental status. Acutely altered mental status in setting of chronic cognitive decline - Encephalopathy likely secondary to acute infection - Head CT negative - Speech/swallow re-evaluation requested by nursing 01/18 * NPO advised 01/19 - ECHO: EF 50-55%, no significant changes from 2014 ECHO. - Ammonia levels normal on 01/12. - Patient's mental status and lung function improved to 01/13. - Received seroquel 01/17 overnight d/t agitation --- Pt currently pending placement to SNF --- Transitioned to IV medications d/t medication refusal/agitation 01/19 Acute bacterial pneumonia superimposed on COVID - CXR showed left basilar opacity, small left pleural effusion, cardiomegaly with mild pulmonary edema - Ceftriaxone, azithromycin given in ED - Suspect potential superimposed bacterial pneumonia on COVID-19 infection with procalcitonin 8 -Questionable contribution from aspiration given pt's recent AMS and functional decline - Started on 01/12 azithromycin, switched ceftriaxone to Unasyn to better cover anaerobes for possible aspiration as above - MRSA nares neg - Azithromycin and Unasyn stopped after 3 days due to the patient clinical improvement - Continue DuoNeb PRN - Given 3 daily doses of 6 mg dexamethasone, steroid taper began 01/15 with 2mg, steroids d/c 01/16 - d/c Remdesivir 100mg IV QD- pt received 4 doses - began Augmentin 875 mg BID 01/16 - discontinue antibiotics 01/18 d/t completed 7 day course --- 01/19 Transitioned to IV Unasyn Atrial fibrillation with RVR - Atrial fibrillation, HRs 100s-110s on admission - Does appear to be new onset, CHADSVASC score > 2 -Given pt's age, thrombocytopenia and fall risk, will defer anticoagulation on admission - S/p IV diltiazem, IV Lopressor x1 in ED with improvement from 140s to 110s - Repeat EKG on 01/13 showed continue Afib w/ RVR. Will give one liter LR @50mL/hr. - Increased metoprolol IV from 5mg to 10mg Q6 on 01/13. Patient still remained in Afib with RVR with the rates 120-140's on 01/14. Ordered a 15mg Cardizem 15mg IV push at that time. - Started Cardizem drip on 01/14 with telemetry monitoring - IV cardizem d/c, began PO cardizem 30 mg TID and metoprolol 50 mg BID 01/16 - No further episodes of RVR with PO meds, transferred to med/surg w/o telemetry 01/17 - Increased Cardizem to 30 mg Q6h - Started prophylactic anticoagulation 01/18, discuss therapeutic dosing w/ f amily --- 01/19 REFUSING PO, started Diltiazen IV d/t RVR --- Required Lopressor 5 mg X 3 overnight, remains elevated AM --- Started IV Cardizem drip 01/19 AM d/t HR 120-130 COVID-19 infection - CXR findings as above - d/c remdesivir, 4 total doses given - d/c dexamethasone taper - On admission required 6L NC. Now on RA. Hypokalemia - 3.9 this AM - stable Hypomagnesemia - 1.9 this AM - stable Elevated troponin - Troponin 28 on admission, highest at 36.9 - Likely due to demand ischemia in setting of AF w/ RVR and acute infection, known CAD. Thrombocytopenia -Plts 68 on admission, baseline appears to be 100-120s -Plt 110 01/17, 96 on 01/18-01/19, will monitor CAD s/p LCx stent - Continue lisinopril, metoprolol, pravastatin - Not on any antiplatelet medication likely due to baseline thrombocytopenia - Prophylactic anticoagulation started 01/18 --- Discuss senior care anticoagulation therapy risks and benefits with family HTN -Continue lisinopril 20 mg daily - Will consider restart Lisinopril in AM 01/19 --- Lisinopril held d/t return to IV medications HLD - Continue pravastatin 80 mg daily - Restarted Statin 01/18 --- Held 01/19 d/t return to IV CKD3 - Cr 0.72 on admission - Cr 0/74 on 01/18 - Continue renal dosing for medication Vitamin D deficiency -Continue home vitamin D supplementation --- Held 01/19 d/t IV medication requirement (2) Dementia: (3) Vitamin D deficiency: (4) Chronic ITP (idiopathic thrombocytopenia): (5) CKD (chronic kidney disease), stage III: (6) Hypertension: (7) Carotid artery disease: (8) Pneumonia: Plan FEN: NPO per speech eval Code status: DNR/DNI DVT ppx: SCDs, started Lovenox 01/18 Isolation: COVID + PT/OT: Ordered Dispo: D/c to SNF, pending placement Admission and Anticipated Discharge Date Admission Date: January 11, 2022 Supervising Physician Co-Signing Physician Notes I also saw the patient confirmed dubois portions of the history and physical examination. Unfortunately, the patient has been unable to take p.o. medications, so she did not get any diltiazem or her antibiotic from about noon yesterday moving forward. She was given as needed doses of IV diltiazem overnight and this morning, although still not adequate rate control. Exam 142/78, 101, 22, 36.6, 90% room air Awake. Nonverbal. She does seem to attempt to speak although unable to understand her. Heart irregularly irregular, auscultated rate 120 Respirations are unlabored. Lungs clear in the apices, decreased in the bases bilaterally. Data WBC 11.33 BUN 21, creatinine 0.73 Impression and plan Metabolic encephalopathy COVID Secondary pneumonia with hypoxia Progressive dementia with agitation In reviewing her outpatient notes, the patient had been previously diagnosed with Alzheimer's dementia which had been progressing. She has had a acceleration in his progression in the setting of COVID-19 infection Unfortunately, she is now not able to take p.o. medications. Whether she will improve (rebound) from her acute infection remains to be seen; even if she improves, I do not suspect that she will reach her previous baseline Will reach out to family today to discuss plan of care/goals Atrial fibrillation with rapid ventricular response Resume Cardizem drip Pneumonia Resume Unasyn Additional per resident documentation Subjective Pt is an 86 yo female with PMH CAD s/p LCx stent, dementia, HTN, HLD, CKD3, osteoporosis, chronic ITP presenting with altered mental status. 01/19: No meaningful HPI, patient awake and resting comfortably on arrival. No response with questioning. 1599: Nursing noted worsening agitation throughout shift. 01/18: No meaningful history. Patient denied pain. Patient appeared comfortable on evaluation. Nursing noted worsening agitation and refusal to eat 0800. 1599 Nursing noted difficulty swallowing, reached out to speech for repeat evaluation, patient is having difficulty swallowing meds, has been requiring them mixed in pudding. Review of Systems Review of Systems: As per HPI Physical Exam Physical Exam: Gen: NAD, responsive to verbal cues, AO x 0, confused, apparent difficulty w/ swallow Resp:Non-labored, no wheezing/rhonchi/rales, CTAB, audible cough (upper airway) CV:Irregular rhythm, rate controlled (120-130 @ 1100, 80-90 @ 1600), normal S1/S2, no M/R/G Abd: Soft, non-distended, no TTP, normoactive bowels, no masses Extr: 2+ dp bilaterally, no edema Skin: No rashes lesions or erythema Results & Data Results & Data ([facility]) Vital Signs (Past 12 Hours) Vital Signs Temp Pulse Pulse Resp BP BP BP 01/19/22 04:40 122 H 131/84 01/19/22 05:34 120 H 139/99 01/19/22 05:07 118 H 110/93 01/19/22 05:04 118 H 110/93 01/19/22 04:47 122 H 131/84 01/19/22 04:15 115 H 155/75 H 01/19/22 03:33 36.5 C 115 H 20 155/75 H 01/18/22 22:49 36.7 C 116 H 18 96/73 L 01/18/22 21:09 01/18/22 19:40 37.2 C 103 H 18 148/89 H Pulse Ox O2 Del Method 01/19/22 04:40 01/19/22 05:34 01/19/22 05:07 01/19/22 05:04 01/19/22 04:47 01/19/22 04:15 01/19/22 03:33 94 Room Air 01/18/22 22:49 95 Room Air 01/18/22 21:09 Room Air 01/18/22 19:40 96 Room Air Resident Activity Tracking Resident Involvement: Resident Care Provided Care Provided: Adult Hospital Medicine (1) Dementia Alzheimer's disease onset: late-onset Dementia behavioral disturbance: with behavioral disturbance Dementia type: Alzheimer's disease Qualified Code(s): G30.1 - Alzheimer's disease with late onset; F02.81 - Dementia in other diseases classified elsewhere with behavioral disturbance (2) Hypertension Hypertension type: essential hypertension Qualified Code(s): I10 - Essential (primary) hypertension
[2022-01-19 08:42] LABS: Hematocrit (blood only) 45.6 % (34.1-44.9); Hemoglobin 15.8 g/dl (12.0-16.0); Mean Corpuscular Hgb Conc 34.6 g/dL (32.0-36.0); Mean Corpuscular Volume 92.3 fL (80.0-100.0); Mean Platelet Volume 12.5 fL (9.4-12.3); Platelet Count 162 K/uL (130-400); RDW Coefficient of Variation 13.5 % (11.5-14.5); RDW Standard Deviation 45.9 fL (36.4-46.3); Red Blood Count 4.94 M/uL (3.93-5.22); White Blood Count 11.33 K/ul (4.8-10.8)
--- NOTE | 2022-01-19 09:38 | XRay Report ---
XR chest 1V portable CLINICAL HISTORY: f/u [facility] COMPARISON STUDY: Chest radiograph January 11, 2022. FINDINGS: There is no pneumothorax. A small left pleural effusion is similar to prior exam. Left basi lar opacity persists. Cardiomediastinal silhouette is stable. There is no evidence for pulmonary wanda a. Chondroid lesion within the proximal left humerus is likely benign. IMPRESSION: 1. Persistent left basilar opacity. Pneumonia is favored. However, continued radiographic follow-up t o ensure resolution is recommended to exclude the possibility of an underlying lesion. 2. Small left pleural effusion. ACT 112: Negative or not required by law. Electronically signed by: Russell Mari M.D. 01/19/2022 9:36 AM
[2022-01-19 09:54] LABS: Albumin Globulin Ratio 0.9 (0.9-2); Albumin Level 3.2 gm/dl (3.4-5.0); BUN Creatinine Ratio 28.8 (10-20); Bilirubin,Total 1.6 mg/dl (0.2-1.0); Calcium 8.7 mg/dl (8.5-10.1); Creatinine Clr Calc Pharmacy 45.4 ml/min; Est GFR (African American) 85.2 ml/min; Est GFR (Non-African American) 73.5 ml/min; Globulin 3.5 gm/dl (2.5-4.0); Magnesium 2.2 mg/dl (1.7-2.4); Potassium 4.1 mmol/L (3.5-5.1); Total Protein 6.7 gm/dl (6.0-8.3)
[2022-01-19] MEDS: PRAVASTATIN SOD 40 MG TAB PO SCH (11:11)
[2022-01-19] MEDS: METOPROLOL TARTRATE 50 MG TAB PO SCH (11:11)
[2022-01-19] MEDS ORDERED: STAT IV Infusion **Titration per Protocol STA (11:33)
[2022-01-19] MEDS: dilTIAZem HCL 125 MG in DEXTROSE 5% 100 ML IV SCH ×2 (12:30→22:34)
[2022-01-19] MEDS: AMPICILLIN/SULBACTAM SOD 1,500 MG in 0.9 % SODIUM CHLORIDE 100 ML IV SCH ×2 (13:42→18:07)
[2022-01-19] MEDS: ENOXAPARIN INJ 40 MG/0.4 ML SYR SQ SCH (15:23)
[2022-01-20] MEDS: AMPICILLIN/SULBACTAM SOD 1,500 MG in 0.9 % SODIUM CHLORIDE 100 ML IV SCH ×4 (00:05→18:22)
[2022-01-20] MEDS: dilTIAZem HCL 125 MG in DEXTROSE 5% 100 ML IV SCH ×2 (06:46→18:29)
[2022-01-20 07:05] LABS: Hematocrit (blood only) 46.5 % (34.1-44.9); Hemoglobin 15.7 g/dl (12.0-16.0); Mean Corpuscular Hemoglobin 31.5 pg (25.0-34.0); Mean Corpuscular Hgb Conc 33.8 g/dL (32.0-36.0); Mean Corpuscular Volume 93.4 fL (80.0-100.0); Mean Platelet Volume 12.2 fL (9.4-12.3); Platelet Count 160 K/uL (130-400); RDW Coefficient of Variation 13.4 % (11.5-14.5); RDW Standard Deviation 45.6 fL (36.4-46.3); Red Blood Count 4.98 M/uL (3.93-5.22); White Blood Count 13.45 K/ul (4.8-10.8)
--- NOTE | 2022-01-20 07:21 | Hospitalist Progress Note ---
Date of Service January 20, 2022 Assessment & Plan (1) Atrial fibrillation with RVR: Plan: Pt is an 86 yo female with PMH CAD s/p LCx stent, dementia, HTN, HLD, CKD3, osteoporosis, chronic ITP presenting with altered mental status. Acutely altered mental status in setting of chronic cognitive decline - Encephalopathy likely secondary to acute infection - Head CT negative - ECHO (2021): EF 50-55%, no significant changes from 2014 - 01/12 Ammonia levels normal - 01/13 Patient's mental status and lung function improved - 01/17 Received Seroquel overnight d/t agitation - 01/18 Repeat speach eval requested, NPO advised 01/19 - 01/19 Transitioned to IV medications d/t medication refusal/agitation/NPO --- 01/20 Pending placement, continue IV Cardizem drip and Unasyn Acute bacterial pneumonia superimposed on COVID - CXR showed left basilar opacity, small left pleural effusion, cardiomegaly with mild pulmonary edema - Ceftriaxone, azithromycin given in ED - Suspect potential superimposed bacterial pneumonia on COVID-19 infection with procalcitonin 8 -Questionable contribution from aspiration given pt's recent AMS and functional decline - Started on 01/12 azithromycin, switched ceftriaxone to Unasyn to better cover anaerobes for possible aspiration as above - MRSA nares neg - Azithromycin and Unasyn stopped after 3 days due to the patient clinical improvement - Continue DuoNeb PRN - Given 3 daily doses of 6 mg dexamethasone, steroid taper began 01/15 with 2mg, steroids d/c 01/16 - d/c Remdesivir 100mg IV QD- pt received 4 doses - 01/16 began Augmentin 875 mg BID - 01/19 Transitioned to IV Unasyn --- 01/20 Leukocytosis 13.45 --- 01/20 Continue IV Unasyn\ --- Repeat CXR tomorrow Atrial fibrillation with RVR - Atrial fibrillation, HRs 100s-110s on admission - Does appear to be new onset, CHADSVASC score > 2 -Given pt's age, thrombocytopenia and fall risk, will defer anticoagulation on admission - S/p IV diltiazem, IV Lopressor x1 in ED with improvement from 140s to 110s - Repeat EKG on 01/13 showed continue Afib w/ RVR. Will give one liter LR @50mL/hr. - Increased metoprolol IV from 5mg to 10mg Q6 on 01/13. Patient still remained in Afib with RVR with the rates 120-140's on 01/14. Ordered a 15mg Cardizem 15mg IV push at that time. - Started Cardizem drip on 01/14 with telemetry monitoring - IV cardizem d/c, began PO cardizem 30 mg TID and metoprolol 50 mg BID 01/16 - No further episodes of RVR with PO meds, transferred to med/surg w/o telemetry 01/17 - Increased Cardizem to 30 mg Q6h - 01/18 Started prophylactic anticoagulation, discuss therapeutic dosing w/ family (attempted 01/19 PM and 01/20 AM, no answer) - 01/19 Required Lopressor 5 mg X 3 overnight, remains elevated AM - 01/19 Refusing PO, started Diltiazen IV d/t RVR - 01/19 Started IV Cardizem drip AM d/t HR 120-130 --- 01/20 Rates 80-90 on Cardizem drip --- 01/20 Added LR at 100 ml/hr COVID-19 infection - CXR findings as above - d/c remdesivir, 4 total doses given - d/c dexamethasone taper - On admission required 6L NC. Now on RA. Hypokalemia - Repleted, stable Hypomagnesemia - Repleted, stable Elevated troponin - Troponin 28 on admission, highest at 36.9 - Likely due to demand ischemia in setting of AF w/ RVR and acute infection, known CAD. Thrombocytopenia - Plts 68 on admission, baseline appears to be 100-120s - 01/17 Plt 110 - 01/19 Plt 162 --- 01/20 Plt 160 CAD s/p LCx stent - Continue lisinopril, metoprolol, pravastatin - Not on any antiplatelet medication likely due to baseline thrombocytopenia - Prophylactic anticoagulation started 01/18 --- Discussed retirement anticoagulation therapy risks and benefits with family HTN -Continue lisinopril 20 mg daily - Will consider restart Lisinopril in AM 01/19 - Lisinopril held d/t return to IV medications --- 01/20 Continue hold, BP 122/90 HLD - Continue pravastatin 80 mg daily - Restarted Statin 01/18 - Held 01/19 d/t return to IV --- 01/20 Continue Statin hold CKD3 - Cr 0.72 on admission - Cr 0/74 on 01/18 - Continue renal dosing for medication Vitamin D deficiency -Continue home vitamin D supplementation - Held 01/19 d IV medication requirement --- Continue Hold (2) Dementia: (3) Vitamin D deficiency: (4) Chronic ITP (idiopathic thrombocytopenia): (5) CKD (chronic kidney disease), stage III: (6) Hypertension: (7) Carotid artery disease: (8) Pneumonia: Plan FEN: NPO, speech following, LR @ 100 Code status: DNR/DNI DVT ppx: started Lovenox 01/18 Isolation: COVID + PT/OT: Ordered Dispo: D/c to SNF, pending placement Admission and Anticipated Discharge Date Admission Date: January 11, 2022 Supervising Physician Co-Signing Physician Notes I also saw the patient confirmed dubois portions of the history and physical examination. The patient is slightly more awake, significantly less agitated, today compared to yesterday. She will nod when spoken to and will appropriately answer yes/no to questions. Unfortunately, she still remains in atrial fibrillation, although rates have been in the mid 90s to low 100s, now on Cardizem drip 10/h. Exam 146/74, 98, 18, 36.6, 95% on 1 L via oxygen mask Awake. Heart irregularly irregular, auscultated rate 90 Respirations are unlabored. Lungs clear in the apices, decreased in the bases bilaterally. Data WBC 13.45 Sodium 139, potassium 4.0, BUN 18, creatinine 0.64. BUN 18, creatinine 0.64 Impression and plan Metabolic encephalopathy COVID Secondary pneumonia with hypoxia Progressive dementia with agitation Subtle improvements in her overall level of alertness, although this has been waxing and waning Still trying to coordinate conversation with family with regards to goals of care Atrial fibrillation with rapid ventricular response Continue Cardizem drip Add maintenance IV fluids, she does not look dry from a lab standpoint, clinically dry mucous membranes but otherwise euvolemic Most recent chest x-ray shows no evidence of increased pulmonary vasculature Pneumonia Continue Unasyn Chest x-ray in a.m. Additional per resident documentation Subjective Pt is an 86 yo female with PMH CAD s/p LCx stent, dementia, HTN, HLD, CKD3, osteoporosis, chronic ITP presenting with altered mental status. 01/20: Patient remains non-verbal, but appeared more comfortable today. She also seemed to visually engage during conversation and explanation of conditions. Pt unable to endorse or deny ROS. PM: Senior resident discussed goals of care and diagnosis w/ patient's brother in law who consistently relays information to patient's who is hard-of-h earing. Family will get back to team about their goals following discussion. 01/19: No meaningful HPI, patient awake and resting comfortably on arrival. No response with questioning. 1600: Nursing noted worsening agitation throughout shift. Review of Systems Review of Systems: As per HPI Physical Exam Physical Exam: Gen: NAD, responsive to verbal cues, AO x 0, comfortable, appar ent difficulty w/ swallow Resp:Non-labored, no wheezing/rhonchi/rales, CTAB, audible cough (upper airway) CV:Irregular rhythm, rate controlled ( 70-80 @ 0800), normal S1/S2, no M/R/G Abd: Soft, non-distended, no TTP, normoactive bowels, no masses Extr: 2+ dp bilaterally, no edema Skin: No rashes lesions or erythema Results & Data Results & Data ([facility]) Vital Signs (Past 12 Hours) Vital Signs Temp Pulse Resp BP Pulse Ox O2 Del Method O2 Flow Rate 01/20/22 04:34 36.6 C 82 18 117/51 L 94 Oxymask 1.0 01/19/22 22:40 36.7 C 99 H 18 133/64 93 Oxymask 2.0 01/19/22 20:12 36.6 C 84 16 162/80 H 96 Oxymask 2.0 01/19/22 19:55 Room Air Resident Activity Tracking Resident Involvement: Resident Care Provided Care Provided: Adult Hospital Medicine (1) Dementia Alzheimer's disease onset: late-onset Dementia behavioral disturbance: with b ehavioral disturbance Dementia type: Alzheimer's disease Qualified Code(s): G30.1 - Alzheimer's disease with late onset; F02.81 - Dementia in other diseases classified elsewhere with behavioral disturbance (2) Hypertension Hypertension type: essential hypertension Qualified Code(s): I10 - Essential (primary) hypertension
[2022-01-20 07:35] LABS: Albumin Globulin Ratio 0.9 (0.9-2); Albumin Level 3.2 gm/dl (3.4-5.0); BUN Creatinine Ratio 28.1 (10-20); Bilirubin,Total 1.7 mg/dl (0.2-1.0); Calcium 8.7 mg/dl (8.5-10.1); Creatinine Clr Calc Pharmacy 51.5 ml/min; Est GFR (African American) 92.3 ml/min; Est GFR (Non-African American) 79.7 ml/min; Globulin 3.7 gm/dl (2.5-4.0); Total Protein 6.9 gm/dl (6.0-8.3)
[2022-01-20] MEDS: LACTATED RINGER'S 1,000 ML IV SCH ×2 (12:01→23:02)
[2022-01-20] MEDS: ENOXAPARIN INJ 40 MG/0.4 ML SYR SQ SCH (14:24)
[2022-01-21] MEDS: AMPICILLIN/SULBACTAM SOD 1,500 MG in 0.9 % SODIUM CHLORIDE 100 ML IV SCH ×5 (01:05→23:03)
[2022-01-21] MEDS: dilTIAZem HCL 125 MG in DEXTROSE 5% 100 ML IV SCH ×4 (06:35→20:37)
[2022-01-21 06:53] LABS: Hematocrit (blood only) 42.4 % (34.1-44.9); Hemoglobin 14.3 g/dl (12.0-16.0); Mean Corpuscular Hemoglobin 31.8 pg (25.0-34.0); Mean Corpuscular Hgb Conc 33.7 g/dL (32.0-36.0); Mean Corpuscular Volume 94.4 fL (80.0-100.0); Mean Platelet Volume 11.9 fL (9.4-12.3); Platelet Count 137 K/uL (130-400); RDW Coefficient of Variation 13.4 % (11.5-14.5); RDW Standard Deviation 46.5 fL (36.4-46.3); Red Blood Count 4.49 M/uL (3.93-5.22); White Blood Count 11.02 K/ul (4.8-10.8)
--- NOTE | 2022-01-21 06:55 | Hospitalist Progress Note ---
Date of Service January 21, 2022 Assessment & Plan (1) Atrial fibrillation with RVR: Plan: Pt is an 86 yo female with PMH CAD s/p LCx stent, dementia, HTN, HLD, CKD3, osteoporosis, chronic ITP presenting with altered mental status. Acutely altered mental status in setting of chronic cognitive decline - Encephalopathy likely secondary to acute infection - Head CT negative - ECHO (2021): EF 50-55%, no significant changes from 2014 - 01/12 Ammonia levels normal - 01/13 Patient's mental status and lung function improved - 01/17 Received Seroquel overnight d/t agitation - 01/18 Repeat speech eval requested, NPO advised 01/19 - 01/19 Transitioned to IV medications d/t medication refusal/agitation/NPO --- Placement on hold d/t Cardizem drip Acute bacterial pneumonia superimposed on COVID - CXR showed left basilar opacity, small left pleural effusion, cardiomegaly with mild pulmonary edema - Ceftriaxone, azithromycin given in ED - Suspect potential superimposed bacterial pneumonia on COVID-19 infection with procalcitonin 8 -Questionable contribution from aspiration given pt's recent AMS and functional decline - Started on 01/12 azithromycin, switched ceftriaxone to Unasyn to better cover anaerobes for possible aspiration as above - MRSA nares neg - Azithromycin and Unasyn stopped after 3 days due to the patient clinical improvement - Continue DuoNeb PRN - Given 3 daily doses of 6 mg dexamethasone, steroid taper began 01/15 with 2mg, steroids d/c 01/16 - d/c Remdesivir 100mg IV QD- pt received 4 doses - 01/16 began Augmentin 875 mg BID - 01/19 Transitioned to IV Unasyn - 01/20 Continue IV Unasyn, 01/20 Leukocytosis 13.45 --- 01/21 Leukocytosis 11.02 --- 01/21 Repeat CXR ---> Improvement of left basilar opacity, favors resolving pneumonia Atrial fibrillation with RVR - Atrial fibrillation, HRs 100s-110s on admission - Does appear to be new onset, CHADSVASC score > 2 -Given pt's age, thrombocytopenia and fall risk, will defer anticoagulation on admission - S/p IV diltiazem, IV Lopressor x1 in ED with improvement from 140s to 110s - Repeat EKG on 01/13 showed continue Afib w/ RVR. Will give one liter LR @50mL/hr. - Increased metoprolol IV from 5mg to 10mg Q6 on 01/13. Patient still remained in Afib with RVR with the rates 120-140's on 01/14. Ordered a 15mg Cardizem 15mg IV push at that time. - Started Cardizem drip on 01/14 with telemetry monitoring - IV cardizem d/c, began PO cardizem 30 mg TID and metoprolol 50 mg BID 01/16 - No further episodes of RVR with PO meds, transferred to med/surg w/o telemetry 01/17 - Increased Cardizem to 30 mg Q6h - 01/18 Started prophylactic anticoagulation, discuss therapeutic dosing w/ family (attempted 01/19 PM and 01/20 AM, no answer) - 01/19 Required Lopressor 5 mg X 3 overnight, remains elevated AM - 01/19 Refusing PO, started Diltiazen IV d/t RVR - 01/19 Started IV Cardizem drip AM d/t HR 120-130 - 01/20 Rates 80-90 on Cardizem drip - 01/20 Added LR at 100 ml/hr --- 01/21 Continue IV Cardizem drip and Unasyn --- Rates 120-130 throughout day --> changed Cardizem to 15 mg/hr --- NG Tube Feeding --> discussed with family --- Fluids ---> LR 100 ml/hr, additional 500cc bolus LR @ 1430 COVID-19 infection - CXR findings as above - d/c remdesivir, 4 total doses given - d/c dexamethasone taper - On admission required 6L NC. Now on RA. Hypokalemia - Repleted, stable Hypomagnesemia - Repleted, stable Elevated troponin - Troponin 28 on admission, highest at 36.9 - Likely due to demand ischemia in setting of AF w/ RVR and acute infection, known CAD. Thrombocytopenia - Resolved, following CAD s/p LCx stent - Continue lisinopril, metoprolol, pravastatin - Not on any antiplatelet medication likely due to baseline thrombocytopenia - Prophylactic anticoagulation started 01/18 --- 01/21 Discussed [facility] anticoagulation therapy risks and benefits with family, no decision made HTN -Continue lisinopril 20 mg daily - Will consider restart Lisinopril in AM 01/19 - 01/19 Lisinopril held d/t return to IV medications HLD - Continue pravastatin 80 mg daily - Restarted Statin 01/18 - Held 01/19 d/t return to IV CKD3 - Cr 0.72 on admission - Cr 0/74 on 01/18 - Continue renal dosing for medication Vitamin D deficiency -Continue home vitamin D supplementation - Held 01/19 d/t IV medication requirement (2) Dementia: (3) Vitamin D deficiency: (4) Chronic ITP (idiopathic thrombocytopenia): (5) CKD (chronic kidney disease), stage III: (6) Hypertension: (7) Carotid artery disease: (8) Pneumonia: Plan FEN: NPO, speech following, LR @ 100 Code status: DNR/DNI DVT ppx: started Lovenox 01/18 Isolation: COVID + PT/OT: Ordered Dispo: D/c to SNF, pending placement Admission and Anticipated Discharge Date Admission Date: January 11, 2022 Supervising Physician Co-Signing Physician Notes I also saw the patient confirmed dubois portions of the history and physical examination. Per nursing report, the patient had been more awake and inte ractive earlier today. At present, during our exam, she is sleeping but awakens to voice. She seems to respond appropriately..Unfortunately, she still remains in atrial fibrillation, and her Cardizem drip was recently increased to 15/h. Exam 158/72, 130, 20, 36.6, 90% on room air Heart irregularly irregular, auscultated rate mid 120s Respirations are unlabored. Lungs clear in the apices, decreased in the bases bilaterally. Data WBC 11.02 Sodium 140, potassium 3.6, BUN 14, creatinine 0.63 Total bilirubin 1.6 Imaging Chest x-ray dated 01/21/2022 shows interval improvement of left basilar opacity. This favors a resolving pneumonia. No change in the small left pleural effusion Impression and plan Metabolic encephalopathy COVID Secondary pneumonia with hypoxia Progressive dementia with agitation Some improvement in her overall level of alertness, but again, some waxing and waning of this Still trying to coordinate conversation with family with regards to goals of care; discussed idea of enteral nutrition trial, and they are discussing with other family members Atrial fibrillation with rapid ventricular response Continue Cardizem drip; now up to 15 mg/h Continue IV fluids, and will trial 500 cc bolus lactated Ringer's to see if this helps in terms of her rate She does not look dry from a lab standpoint, clinically dry mucous membranes but otherwise euvolemic Most recent chest x-ray shows no evidence of increased pulmonary vasculature, echocardiogram shows low normal ejection fraction Pneumonia Continue Unasyn CXR as noted above Additional per resident documentation Subjective Pt is an 86 yo female with PMH CAD s/p LCx stent, dementia, HTN, HLD, CKD3, osteoporosis, chronic ITP presenting with altered mental status. 01/21: Patient minimally verbal today, noting that she is cold and arousing to voice. Patient unable to adequately endorse or deny any ROS. Moves head that she is not in pain. Tele: Rates of 110-150 overnight 1500: Spoke with patient's brother in law regarding addition of NGT, notes that he will discuss with patient . Topic was discussed yesterday, but family had not yet made a decision regarding additional intervention. 01/20: Patient remains non-verbal, but appeared more comfortable today. She also seemed to visually engage during conversation and explanation of conditions. Pt unable to endorse or deny ROS. Review of Systems Review of Systems: As per HPI Physical Exam Physical Exam: Gen: NAD, responsive to verbal cues, AO x 1?, comfortable, apparent difficulty w/ swallow Resp:Non-labored, no wheezing/rhonchi/rales, CTAB, audible cough (upper airway) CV:Irregular rhythm, rate uncontrolled (110 @ 1400), normal S1/S2, no M/R/G Abd: Soft, non-distended, no TTP, normoactive bowels, no masses Extr: 2+ dp bilaterally, no edema Skin: No rashes lesions or erythema Results & Data Results & Data ([facility]) Vital Signs (Past 12 Hours) Vital Signs Temp Pulse Pulse Resp BP Pulse Ox O2 Del Method 01/21/22 03:42 36.9 C 104 H 12 146/93 H 97 Room Air 01/20/22 22:15 98 H 01/20/22 22:40 37.0 C 94 H 22 137/91 96 Room Air 01/20/22 19:50 Room Air 01/20/22 19:22 36.8 C 84 20 113/74 98 Room Air Resident Activity Tracking Resident Involvement: Resident Care Provided Care Provided: Adult Hospital Medicine (1) Dementia Alzheimer's disease onset: late-onset Dementia behavioral disturbance: with behavioral disturbance Dementia type: Alzheimer's disease Qualified Code(s): G30.1 - Alzheimer's disease with late onset; F02.81 - Dementia in other diseases classified elsewhere with behavioral disturbance (2) Hypertension Hypertension type: essential hypertension Qualified Code(s): I10 - Essential (primary) hypertension
--- NOTE | 2022-01-21 07:24 | XRay Report ---
XR chest 1V portable CLINICAL HISTORY: Follow-up pneumonia. COMPARISON STUDY: Chest radiograph January 19, 2022. FINDINGS: Left basilar opacity is improved. There is mild residual opacity. A small left pleural effu vicki is noted. There is no pneumothorax. No evidence for pulmonary edema. Cardiomediastinal silhouett e is stable. IMPRESSION: 1. Interval improvement in left basilar opacity. This favors resolving pneumonia. Continued radiograp hic follow-up is recommended to ensure complete resolution. 2. No change in a small left pleural effusion. ACT 112: Negative or not required by law. Electronically signed by: Russell Mari M.D. 01/21/2022 7:22 AM
[2022-01-21 07:30] LABS: Albumin Globulin Ratio 0.9 (0.9-2); Albumin Level 2.9 gm/dl (3.4-5.0); BUN Creatinine Ratio 22.2 (10-20); Bilirubin,Total 1.6 mg/dl (0.2-1.0); Calcium 8.4 mg/dl (8.5-10.1); Creatinine Clr Calc Pharmacy 50.6 ml/min; Est GFR (African American) 92.8 ml/min; Est GFR (Non-African American) 80.1 ml/min; Globulin 3.4 gm/dl (2.5-4.0); Potassium 3.6 mmol/L (3.5-5.1); Total Protein 6.3 gm/dl (6.0-8.3)
[2022-01-21] MEDS: LACTATED RINGER'S 1,000 ML IV SCH ×2 (08:06→20:38)
[2022-01-21] MEDS: ENOXAPARIN INJ 40 MG/0.4 ML SYR SQ SCH (14:32)
[2022-01-21] MEDS ORDERED: SODIUM CHLORIDE 0.9% 1000ML 500 ML IV ONE (14:52)
[2022-01-21] MEDS ORDERED: LACTATED RINGER'S 500 ML IV ONE (14:54)
--- NOTE | 2022-01-21 18:20 | XRay Report ---
XR KUB/Abdomen 1 view CLINICAL HISTORY: NG Tube Placement TECHNIQUE: 1 view of the abdomen was obtained. Comparison: Comparison is made to upper GI to 712 FINDINGS: Enteric tube terminates in the stomach. The osseous structures are grossly unremarkable. The bowel ga s pattern is nonobstructive. IMPRESSION: Satisfactory position of enteric tube. ACT 112: Negative or not required by law. Electronically signed by: Andres Beltran M.D. 01/21/2022 6:18 PM
[2022-01-21] MEDS: FIBERSOURCE HN 1.2 CAL 1000 ML BAG NG SCH (20:37)
[2022-01-21] MEDS: TUBE FEEDING WATER FLUSH NG SCH ×2 (20:37→22:08)
[2022-01-22] MEDS: TUBE FEEDING WATER FLUSH NG SCH ×6 (02:04→22:21)
[2022-01-22] MEDS: dilTIAZem HCL 125 MG in DEXTROSE 5% 100 ML IV SCH ×3 (02:11→17:56)
[2022-01-22] MEDS: AMPICILLIN/SULBACTAM SOD 1,500 MG in 0.9 % SODIUM CHLORIDE 100 ML IV SCH ×3 (05:30→17:47)
--- NOTE | 2022-01-22 07:10 | Hospitalist Progress Note ---
Date of Service January 22, 2022 Assessment & Plan (1) Atrial fibrillation with RVR: Plan: Danitza is an 86 year old female with PMH CAD s/p LCx stent, dementia, HTN, HLD, CKD3, osteoporosis, chronic ITP presenting with altered mental status. Acutely altered mental status in setting of chronic cognitive decline - Encephalopathy likely secondary to acute infection - Head CT negative - ECHO (2021): EF 50-55%, no significant changes from 2014 - 01/12 Ammonia levels normal - 01/13 Patient's mental status and lung function improved - 01/17 Received Seroquel overnight d/t agitation - 01/18 Repeat speech eval requested, NPO advised 01/19 - 01/19 Transitioned to IV medications d/t medication refusal/agitation/NPO --- Placement on hold d/t Cardizem drip, CM following Acute bacterial pneumonia superimposed on COVID - CXR showed left basilar opacity, small left pleural effusion, cardiomegaly with mild pulmonary edema - Ceftriaxone, azithromycin given in ED - Suspect potential superimposed bacterial pneumonia on COVID-19 infection with procalcitonin 8 -Questionable contribution from aspiration given pt's recent AMS and functional decline - Started on 01/12 azithromycin, switched ceftriaxone to Unasyn to better cover anaerobes for possible aspiration as above - MRSA nares neg - Azithromycin and Unasyn stopped after 3 days due to the patient clinical improvement - Continue DuoNeb PRN - Given 3 daily doses of 6 mg dexamethasone, steroid taper began 01/15 with 2mg, steroids d/c 01/16 - d/c Remdesivir 100mg IV QD- pt received 4 doses - 01/16 began Augmentin 875 mg BID - 01/19 Transitioned to IV Unasyn - 01/20 Continue IV Unasyn, 01/20 Leukocytosis 13.45 - 01/21 Leukocytosis 11.02, Repeat CXR ---> Improvement of left basilar opacity, favors resolving pneumonia, follow q 2-3 days --- 01/22 Continue IV Unasyn, leukocytosis resolved Atrial fibrillation with RVR - Atrial fibrillation, HRs 100s-110s on admission - Does appear to be new onset, CHADSVASC score > 2 - Given pt's age, thrombocytopenia and fall risk, will defer anticoagulation on admission - S/p IV diltiazem, IV Lopressor x1 in ED with improvement from 140s to 110s - Repeat EKG on 01/13 showed continue Afib w/ RVR. Will give one liter LR @50mL/hr. - Increased metoprolol IV from 5mg to 10mg Q6 on 01/13. Patient still remained in Afib with RVR with the rates 120-140's on 01/14. Ordered a 15mg Cardizem 15mg IV push at that time. - Started Cardizem drip on 01/14 with telemetry monitoring - IV cardizem d/c, began PO cardizem 30 mg TID and metoprolol 50 mg BID 01/16 - No further episodes of RVR with PO meds, transferred to med/surg w/o telemetry 01/17 - Increased Cardizem to 30 mg Q6h - 01/18 Started prophylactic anticoagulation, discuss therapeutic dosing w/ family (attempted 01/19 PM and 01/20 AM, no answer) - 01/19 Required Lopressor 5 mg X 3 overnight, remains elevated AM - 01/19 Refusing PO, started Diltiazen IV d/t RVR - 01/19 Started IV Cardizem drip AM d/t HR 120-130 - 01/20 Rates 80-90 on Cardizem drip - 01/20 Added LR at 100 ml/hr - 01/21 IV Cardizem drip and Unasyn, Rates 120-130 --> Cardizem to 15 mg/hr, NG Tube Feeding --> discussed with family and placed, Fluids ---> LR 100 ml/hr, additional 500cc bolus LR @ 1430 --- 01/22 IV Cardizem drip ongoing, rates 90-110 overnight, nursing notified to decrease to 10 mg from 15 mg --- 01/22 Repleted K, 10 mEq x 4, Ongoing NGT, Ongoing LR @ 100 mL/h COVID-19 infection - CXR findings as above - d/c remdesivir, 4 total doses given - d/c dexamethasone taper - On admission required 6L NC. Now on RA. --- Day 11 since presentation w/ COVID sx Hypokalemia - Repleted, stable --- 01/22 Repleted K Hypomagnesemia - Repleted, stable Elevated troponin - Troponin 28 on admission, highest at 36.9 - Likely due to demand ischemia in setting of AF w/ RVR and acute infection, known CAD. Thrombocytopenia - Resolved, following CAD s/p LCx stent - Continue lisinopril, metoprolol, pravastatin - Not on any antiplatelet medication likely due to baseline thrombocytopenia - Prophylactic anticoagulation started 01/18 - 01/21 [facility] [facility] therapy risks and benefits with family, no decision made HTN -Continue lisinopril 20 mg daily - Will consider restart Lisinopril in AM 01/19 - 01/19 Lisinopril held d/t return to IV medications HLD - Continue pravastatin 80 mg daily - Restarted Statin 01/18 - Held 01/19 d/t return to IV CKD3 - Cr 0.72 on admission - Cr 0/74 on 01/18 - Continue renal dosing for medication Vitamin D deficiency - Continue home vitamin D supplementation - Held 01/19 d/t IV medication requirement (2) Dementia: (3) Vitamin D deficiency: (4) Chronic ITP (idiopathic thrombocytopenia): (5) CKD (chronic kidney disease), stage III: (6) Hypertension: (7) Carotid artery disease: (8) Pneumonia: Plan FEN: NPO, speech following, LR @ 100, NGT Code status: DNR/DNI DVT ppx: Lovenox Isolation: COVID + (02/01) PT/OT: Ordered Dispo: Placement on hold d/t Aline drip Admission and Anticipated Discharge Date Admission Date: January 11, 2022 Supervising Physician Co-Signing Physician Notes Patient seen and examined with PGY-1 Dr. Saavedra. Agree with history, exam findings, assessment and plan of care as outlined. 86 year old female with hx of CAD s/p LCx PCI, dementia, HTN, HLD, CKD, osteoporosis and chronic ITP admitted with altered mental status. VS and nursing notes reviewed. Ill appearing. Dry mucous membranes. Tongue is dry. Heart is irregularly irregular. Lungs with coarse breath sounds throughout. Abdomen is soft, non-tender. She is able to follow commands. Moves all extremities. Labs and imaging reviewed. 1. Encephalopathy due to acute bacterial pneumonia superimposed on COVID-19 infection. Currently NPO due to continued agitation, med refusal 2. Acute bacterial pneumonia superimposed on COVID-19 infection. CXR with left basilar opacity. Completed Remdesivir and dexamethasone. Restarted Unasyn on 01/16. 3. Atrial fibrillation with RVR. On Cardizem gttattempt to titrate down today. If we are not successful, can consider a dose of digoxin +/- cardiology consult for additional assistance. 4. CAD, HTN. Holding lisinopril, pravastatin and metoprolol due to NPO status. Dispo: pending clinical improvement. Arpita Bosch is an 86 yo female with PMH CAD s/p LCx stent, dementia, HTN, HLD, CKD3, osteoporosis, chronic ITP presenting with altered mental status. 01/22: Remains minimally verbal, responds to voice stimuli. Denies pain in her chest or dyspnea. Attempts to mouth words. Tele: Rates of 90-110 overnight, Afib 01/21: Patient minimally verbal today, noting that she is cold and arousing to voice. Patient unable to adequately endorse or deny any ROS. Moves head that she is not in pain. Tele: Rates of 110-150 overnight Review of Systems Review of Systems: As per HPI Physical Exam Physical Exam: Gen: NAD, responsive to verbal cues, AO x 1?, comfortable, apparent difficulty w/ swallow Neuro: Moves all extremities when requested, can move toes and fingers, able to rotate head left and right when directed HEENT: Mouth visibly dry w/ appreciable cracking of tongue Resp:Non-labored, no wheezing/rhonchi/rales, CTAB, audible upper airway cough/gargling CV:Irregular rhythm, rate controlled (80-90s @ 1100 ), normal S1/S2, no M/R/G Abd: Soft, non-distended, no TTP, normoactive bowels, no masses Extr: 2+ dp bilaterally, no edema Results & Data Results & Data ([facility]) Vital Signs (Past 12 Hours) Vital Signs Temp Pulse Pulse Resp BP Pulse Ox O2 Del Method 01/21/22 22:22 99 H 01/22/22 03:01 37.1 C 93 H 18 135/75 98 Room Air 01/21/22 22:58 36.5 C 109 H 20 169/89 H 98 01/21/22 20:33 Room Air 01/21/22 20:40 37.7 C H 96 H 18 123/78 96 Room Air Resident Activity Tracking Resident Involvement: Resident Care Provided Care Provided: Adult Hospital Medicine (1) Dementia Alzheimer's disease onset: late-onset Dementia behavioral disturbance: with behavioral disturbance Dementia type: Alzheimer's disease Qualified Code(s): G30.1 - Alzheimer's disease with late onset; F02.81 - Dementia in other diseases classified elsewhere with behavioral disturbance (2) Hypertension Hypertension type: essential hypertension Qualified Code(s): I10 - Essential (primary) hypertension
[2022-01-22 07:21] LABS: Hematocrit (blood only) 43.2 % (34.1-44.9); Hemoglobin 14.7 g/dl (12.0-16.0); Mean Corpuscular Hemoglobin 31.7 pg (25.0-34.0); Mean Corpuscular Volume 93.1 fL (80.0-100.0); Mean Platelet Volume 12.2 fL (9.4-12.3); Platelet Count 131 K/uL (130-400); RDW Coefficient of Variation 13.3 % (11.5-14.5); RDW Standard Deviation 45.4 fL (36.4-46.3); Red Blood Count 4.64 M/uL (3.93-5.22); White Blood Count 10.44 K/ul (4.8-10.8)
[2022-01-22 07:42] LABS: Albumin Globulin Ratio 0.8 (0.9-2); Albumin Level 2.9 gm/dl (3.4-5.0); BUN Creatinine Ratio 15.8 (10-20); Bilirubin,Total 1.6 mg/dl (0.2-1.0); Calcium 8.4 mg/dl (8.5-10.1); Est GFR (African American) 95.9 ml/min; Est GFR (Non-African American) 82.8 ml/min; Globulin 3.6 gm/dl (2.5-4.0); Potassium 3.3 mmol/L (3.5-5.1); Total Protein 6.5 gm/dl (6.0-8.3)
[2022-01-22] MEDS: LACTATED RINGER'S 1,000 ML IV SCH ×2 (08:21→17:48)
[2022-01-22] MEDS: MULTI VIT W/MINERALS LIQUID 15 ML UDP NG SCH (08:23)
[2022-01-22] MEDS: POTASSIUM CHLORIDE / WTR 10 MEQ/100 ML PLCT IV SCH ×4 (09:26→13:44)
[2022-01-22] MEDS: ENOXAPARIN INJ 40 MG/0.4 ML SYR SQ SCH (13:48)
--- NOTE | 2022-01-22 15:11 | Electrocardiogram Report ---
Test Reason : Blood Pressure : / mmHG Vent. Rate : 098 BPM Atrial Rate : 202 BPM P-R Int : 000 ms QRS Dur : 072 ms QT Int : 332 ms P-R-T Axes : 000 054 226 degrees QTc Int : 423 ms Atrial fibrillation Nonspecific T wave abnormality Abnormal ECG When compared with ECG of 15-JAN-2022 05:23, Nonspecific T wave abnormality, worse in Inferior leads Nonspecific T wave abnormality now evident in Lateral leads Confirmed by Nader Thayer ([id number]) on 01/22/2022 3:10:38 PM Referred By: REFERRED SELF Confirmed By:Tony Thayer
[2022-01-22 17:06] LABS: BUN Creatinine Ratio 15.1 (10-20); Calcium 8.8 mg/dl (8.5-10.1); Creatinine Clr Calc Pharmacy 60.2 ml/min; Est GFR (African American) 98.3 ml/min; Est GFR (Non-African American) 84.8 ml/min; Potassium 3.9 mmol/L (3.5-5.1)
[2022-01-23] MEDS: AMPICILLIN/SULBACTAM SOD 1,500 MG in 0.9 % SODIUM CHLORIDE 100 ML IV SCH ×3 (01:02→11:54)
[2022-01-23] MEDS: dilTIAZem HCL 125 MG in DEXTROSE 5% 100 ML IV SCH ×2 (02:14→10:48)
[2022-01-23] MEDS: TUBE FEEDING WATER FLUSH NG SCH ×6 (03:06→21:19)
[2022-01-23] MEDS: LACTATED RINGER'S 1,000 ML IV SCH ×3 (03:59→23:16)
[2022-01-23 06:28] LABS: Hematocrit (blood only) 40.9 % (34.1-44.9); Hemoglobin 14.1 g/dl (12.0-16.0); Mean Corpuscular Hemoglobin 31.5 pg (25.0-34.0); Mean Corpuscular Hgb Conc 34.5 g/dL (32.0-36.0); Mean Corpuscular Volume 91.3 fL (80.0-100.0); Mean Platelet Volume 12.1 fL (9.4-12.3); Platelet Count 116 K/uL (130-400); RDW Coefficient of Variation 13.1 % (11.5-14.5); RDW Standard Deviation 43.7 fL (36.4-46.3); Red Blood Count 4.48 M/uL (3.93-5.22); White Blood Count 10.07 K/ul (4.8-10.8)
[2022-01-23 06:50] LABS: Albumin Globulin Ratio 0.8 (0.9-2); Albumin Level 2.7 gm/dl (3.4-5.0); BUN Creatinine Ratio 17.8 (10-20); Bilirubin,Total 1.2 mg/dl (0.2-1.0); Calcium 8.3 mg/dl (8.5-10.1); Creatinine Clr Calc Pharmacy 80.1 ml/min; Est GFR (African American) 103.7 ml/min; Est GFR (Non-African American) 89.5 ml/min; Globulin 3.6 gm/dl (2.5-4.0); Potassium 3.5 mmol/L (3.5-5.1); Total Protein 6.3 gm/dl (6.0-8.3)
--- NOTE | 2022-01-23 06:54 | Hospitalist Progress Note ---
Date of Service January 23, 2022 Assessment & Plan (1) Atrial fibrillation with RVR: (2) Dementia: (3) Vitamin D deficiency: (4) Chronic ITP (idiopathic thrombocytopenia): (5) CKD (chronic kidney disease), stage III: (6) Hypertension: (7) Carotid artery disease: (8) Pneumonia: Cindi Bosch is an 86 year old female with PMH CAD s/p LCx stent, dementia, HTN, HLD, CKD3, osteoporosis, chronic ITP presenting with altered mental status. Atrial fibrillation with RVR ([facility], [facility] 2) - ED: IV diltiazem, IV Lopressor x1 in with improvement from 140s to 110s - 01/13: Repeat EKG on showed continue Afib w/ RVR, received one liter LR @50mL/hr. - 01/13: Increased metoprolol IV from 5mg to 10mg Q6 on. - 01/14: Patient still remained in Afib with RVR with the rates 120-140's, ordered a 15mg Cardizem 15mg IV push at that time. - 01/14: Started Cardizem drip on with telemetry monitoring - 01/16: IV Cardizem d/c, began PO Cardizem 30 mg TID and metoprolol 50 mg BID 01/16 - 01/17: Transferred to med/surg w/o telemetry 01/17, Increased Cardizem to 30 mg Q6h - 01/18: Started prophylactic anticoagulation, discuss therapeutic dosing w/ family (attempted 01/19 PM and 01/20 AM, no answer) - 01/19: Required Lopressor 5 mg X 3 overnight, remains elevated AM, Refusing PO, started Diltiazen IV d/t RVR, Started IV Cardizem drip AM d/t HR 120-130 - 01/20: Rates 80-90 on Cardizem drip, Added LR at 100 ml/hr - 01/21: IV Cardizem drip and Unasyn, Rates 120-130, Cardizem to 15 mg/hr, NG Tube Feeding - discussed with family and placed NGT, LR 100 ml/hr, 500cc bolus LR @ 1430 - 01/22: IV Cardizem drip ongoing, rates 90-110 overnight, nursing notified to de crease to 10 mg from 15 mg, repleted K, 10 mEq x 4, Ongoing NGT, Ongoing LR @ 100 mL/h --- 01/23 Started Eliquis 2.5 mg PO BID (crush and provide through NGT), received dose of Digoxin 125 mcg, Cardizem discontinued, Metoprolol 25 mg PO BID reinstated Acutely altered mental status in setting of chronic cognitive decline - Encephalopathy likely secondary to acute infection, CT negative for acute event - ECHO (2021): EF 50-55%, no significant changes from 2014 - 01/12 Ammonia levels normal - 01/13 Patient's mental status and lung function improved - 01/17 Received Seroquel overnight d/t agitation - 01/18 Repeat speech eval requested, NPO advised 01/19 - 01/19 Transitioned to IV medications d/t medication refusal/agitation/NPO --- 01/23 Pending placement Acute bacterial pneumonia superimposed on COVID - CXR showed left basilar opacity, small left pleural effusion, cardiomegaly with mild pulmonary edema - Ceftriaxone, azithromycin given in ED for suspected superimposed bacterial pneumonia on COVID-19 infection with procalcitonin 8, questionable contribution from aspiration given pt's recent AMS and functional decline - Elevated troponin likely d/t demand ischemia from acute infection - 01/12: Started on azithromycin, switched ceftriaxone to Unasyn to better cover anaerobes for possible aspiration as above, MRSA nares neg - 01/15 Azithromycin and Unasyn stopped due to the patient clinical improvement, Continue DuoNeb PRN - 01/16 Steroid taper complete, d/c Remdesivir 100mg IV QD- pt received 4 doses, began Augmentin 875 mg BID - 01/19 Transitioned to IV Unasyn d/t NPO (per speech evaluation) - 01/20 Continue IV Unasyn, Leukocytosis 13.45 - 01/21 Leukocytosis 11.02, Repeat CXR ---> Improvement of left basilar opacity, favors resolving pneumonia, follow q 2-3 days - 01/22 Leukocytosis resolved --- 01/23 discontinue IV Unasyn, leukocytosis resolved, repeat CXR in AM COVID-19 infection - CXR findings as above - d/c remdesivir, 4 total doses given - d/c dexamethasone taper - On admission required 6L NC. Now on RA. --- Day 12 since presentation w/ COVID sx Thrombocytopenia - Resolved, following Chronic Conditions * CAD s/p LCx stent - Continue lisinopril, metoprolol, pravastatin * HTN - Continue lisinopril 20 mg daily (restarted 01/23) * HLD - Pravastatin held 01/19 * CKD3 - Continue renal dosing for medication * Vitamin D deficiency - Held 01/19 d/t IV medication requirement FEN: NPO, speech following, LR @ 100, NGT Code status: DNR/DNI DVT ppx: Lovenox Isolation: COVID + (02/01) PT/OT: Ordered Dispo: Placement on hold d/t Cardizem drip Admission and Anticipated Discharge Date Admission Date: January 11, 2022 Supervising Physician Co-Signing Physician Notes Patient seen and examined independently of PGY-1 Dr. Saavedra. Agree with history, exam findings, assessment and plan of care as outlined. 86 year old female with hx of CAD s/p LCx PCI, dementia, HTN, HLD, CKD, osteoporosis and chronic ITP admitted with altered mental status. Unable to obtain history from Danit[facility]. Was given an addition dose of IV metoprolol this afternoon when she had elevated blood pressures and tachycardia. Unclear if the agitation caused these elevations,but likely. VS and nursing notes reviewed. Ill appearing. Dry mucous membranes. Tongue is dry. Unable to understand what she is saying. Heart is irregularly irregular. Lungs with coarse breath sounds throughout. Abdomen is soft, non-tender. She is able to follow commands. Moves all extremities. Labs and imaging reviewed. 1. Encephalopathy due to acute bacterial pneumonia superimposed on COVID-19 infection. Currently NPO due to continued agitation, med refusal, but getting tube feeds and crushed meds through NG tube. 2. Acute bacterial pneumonia superimposed on COVID-19 infection. CXR with left basilar opacity. Completed Remdesivir and dexamethasone. Completed antibiotic course for bacterial pneumonia. Antibiotics stopped today. 3. Atrial fibrillation with RVR. Off cardizem drip. Rates are reasonable after a dose of digoxin and crushed metoprolol. Continue with metoprolol BID. Appreciate cardiology recommendations. 4. CAD, HTN. Continue lisinopril, pravastatin and metoprolol. Dispo: pending clinical improvement. Arpita Bosch is an 86 yo female with PMH CAD s/p LCx stent, dementia, HTN, HLD, CKD3, osteoporosis, chronic ITP presenting with altered mental status. 01/23: Minimally verbal. Resting comfortably upon presentation. Responds to verbal stimuli, follows some commands. Attempts to convers, but inaudible. Patient denies pain, otherwise no meaningful HPI. Tele: Rates 80s - 100s overnight, Afib 01/22: Remains minimally verbal, responds to voice stimuli. Denies pain in her chest or dyspnea. Attempts to mouth words. Tele: Rates of 90-110 overnight, Afib 11/3: Patient minimally verbal today, noting that she is cold and arousing to voice. Patient unable to adequately endorse or deny any ROS. Moves head that she is not in pain. Tele: Rates of 110-150 overnight Review of Systems Review of Systems: As per HPI Physical Exam Physical Exam: Gen: NAD, responsive to verbal cues, AO x ?, comfortable, apparent difficulty w/ swallow Neuro: Moves all extremities when requested, can move toes and fingers, able to rotate head left and right when directed HEENT: Mouth visibly dry w/ appreciable cracking of tongue Resp:Non-labored, no wheezing/rhonchi/rales, CTAB, audible upper airway cough/gargling CV:Irregular rhythm, rate controlled (80s @ 0900 ), normal S1/S2, no M/R/G Abd: Soft, non-distended, no TTP, normoactive bowels, no masses Extr: 2+ dp bilaterally, no edema Results & Data Results & Data ([facility]) Vital Signs (Past 12 Hours) Vital Signs Temp Pulse Pulse Resp BP Pulse Ox O2 Del Method 01/23/22 03:29 36.8 C 86 22 128/82 97 Room Air 01/22/22 23:08 93 H 01/22/22 22:29 37 C 110 H 18 135/109 H 95 01/22/22 19:59 Room Air 01/22/22 19:40 37.4 C 108 H 22 136/101 H 98 Room Air Resident Activity Tracking Resident Involvement: Resident Care Provided Care Provided: Adult Hospital Medicine (1) Dementia Alzheimer's disease onset: late-onset Dementia behavioral disturbance: with behavioral disturbance Dementia type: Alzheimer's disease Qualified Code(s): G30.1 - Alzheimer's disease with late onset; F02.81 - Dementia in other diseases classified elsewhere with behavioral disturbance (2) Hypertension Hypertension type: essential hypertension Qualified Code(s): I10 - Essential (primary) hypertension
[2022-01-23] MEDS: MULTI VIT W/MINERALS LIQUID 15 ML UDP NG SCH (08:14)
[2022-01-23] MEDS: FIBERSOURCE HN 1.2 CAL 1000 ML BAG NG SCH (08:58)
[2022-01-23] MEDS ORDERED: DIGOXIN 125 MCG in SYRINGE 9.5 ML IV ONE (11:00)
--- NOTE | 2022-01-23 12:14 | Cardiology Consultation ---
Date of Consultation January 23, 2022 History of Present Illness Reason for Consultation: A. fib with rapid ventricular response Attending Physician: Pedro Pablo Felipe DO History of Present Illness Today's visit was completed via telehealth (via phone). I have spent 12 minutes discussing her medical conditions and treatment options. This included discussion with her hospitalist service. The patient is significantly confused and therefore is unable to give any pertinent history. The history is obtained from the chart. I was in the hospital and the patient was in her room. Patient was admitted with after COVID exposure with COVID-pneumonia and has had atrial fibrillation with a rapid ventricular response that is been difficult to control. She is having significant confusion. According to the nursing staff she is unaware of her atrial fibrillation. Her blood pressures have been in the 140s and 150s for the most part when she is not agitated. There is been no documentation of chest discomfort or chest pressure. Allergies Allergy/AdvReac Type Severity Reaction Status Date / Time adhesive Allergy Mild IRRITATION Verified 01/11/22 20:28 Sulfa (Sulfonamide Allergy Unknown ? REMEMBER Verified 01/11/22 20:28 Antibiotics) codeine AdvReac Intermediate LONG Verified 01/11/22 20:28 FEELING ARMS lovastatin AdvReac Intermediate MYALGIA Verified 01/11/22 20:28 AND WEAKNESS lorazepam AdvReac Mild itching Verified 01/11/22 20:28 Home Medications Medication Instructions Recorded Confirmed Type nitroglycerin 0.4 mg sublingual 0.4 mg sublingual UD PRN Chest Pain 02/25/18 01/11/22 History tablet (Nitrostat) cholecalciferol (vitamin D3) 50 2,000 units PO DAILY 12/13/18 01/11/22 History mcg (2,000 unit) capsule polyethylene glycol 400 0.25 % eye 0.25 % ophthalmic (eye) DAILY #30 07/06/19 01/11/22 Rx drops (Blink Tears) mL vitamin B complex (B 1 tab PO DAILY #30 tabs 07/06/19 01/11/22 Rx Complex-Vitamin B12 tablet) pimavanserin 34 mg capsule 34 mg PO DAILY #30 caps 12/20/19 01/11/22 Rx (Nuplazid) metoprolol tartrate 50 mg tablet See Rx Instructions .Route 03/03/21 01/11/22 Rx .COMPLEX #180 tabs pravastatin 80 mg tablet 80 mg PO DAILY #90 tabs 06/03/21 01/11/22 Rx lisinopril 20 mg tablet 20 mg PO DAILY #90 tabs 12/16/21 01/11/22 Rx Patient History Medical History CAD (coronary artery disease) CAD (coronary artery disease) Cerebrovascular small vessel disease Chest pain Chronic ITP (idiopathic thrombocytopenia) Chronic steroid use CKD (chronic kidney disease), stage III Hypertension [place] (myocardial infarction) Myocardial infarction Polymyalgia rheumatica Surgical History H/O colonoscopy H/O removal of cyst excision of Right sebaceous cyst 2014 and 2018 History of incision and drainage Hx of cardiac cath cath stent 1 proximal circumflex Family History Sister Colon cancer Other Breast cancer Denies family history of Ovarian cancer Prostate cancer Lung cancer Colorectal cancer Social History Smoking Status: Unknown if ever smoked Second Hand Exposure: No; Preferred Language: Finnish Communication Ability: Impaired Communication Ability Comment: unable to respond d/t AMS Visual Impairment: Limited Hearing Ability: Use of Hearing Aid [employer]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 Beliefs That Will Affect Care: None marital status: Current Living Situation: Spouse current occupational status: retired How many Children do You have: 0 Feels Safe at Home: Yes Safety Concerns Comment: Feels unsafe with some of her neighbors Childhood Exposure to Second-Hand Smoke: Yes caffeine: Yes (two cups of coffee daily ) Dental Care, Regularly: No Physical Activity Frequency: Does not Exercise Seatbelt Use: always Sunscreen Use: No Assistive Devices: Cane Assistive Devices Comment: uses a cane sometimes Results & Data ([facility]) Vital Signs (Past 12 Hours) Vital Signs Temp Pulse Pulse Resp BP Pulse Ox O2 Del Method 01/23/22 08:00 Room Air 01/23/22 08:00 01/23/22 11:37 36.6 C 102 H 20 173/92 H 95 Room Air 01/23/22 11:35 100 H 01/23/22 08:12 36.7 C 90 18 150/83 H 98 Room Air 11/05/22 03:29 36.8 C 86 22 128/82 97 Room Air O2 Del Method 01/23/22 08:00 01/23/22 08:00 Room Air 01/23/22 11:37 01/23/22 11:35 01/23/22 08:12 01/23/22 03:29 no exam was performed as this was a telehealth visit IMPRESSIONS: Acutely altered mental status in setting of chronic cognitive decline Acute bacterial pneumonia superimposed on COVID Atrial fibrillation with RVR COVID-19 infection Echo this admission with low normal left ventricular systolic function and no regional wall motion abnormalities She was given a dose of digoxin this morning IV and this seems to have slowed her heart rate down. Her diltiazem drip has been discontinued already by the nursing staff. I would reinitiate her beta-blockers with 25 mg of metoprolol twice daily this can be crushed and given to her orally. She has more than enough blood pressure room that her beta-blockers can be increased. If her heart rates remain fast and we run out of blood pressure room then we could consider using digoxin on a regular basis. Her renal function is normal and she should tolerate a maintenance dose if needed of 0.125 mg daily. I would not be aggressive with anticoagulation based on her atrial fibrillation.
[2022-01-23] MEDS: METOPROLOL TARTRATE 25 MG TAB PO SCH ×2 (12:49→19:34)
[2022-01-23] MEDS: ENOXAPARIN INJ 40 MG/0.4 ML SYR SQ SCH (15:35)
[2022-01-23] MEDS ORDERED: METOPROLOL TARTRATE 1 MG/ML VIAL IV STA (16:59)
[2022-01-23] MEDS ORDERED: lisinopril 20 MG TAB PO STA (18:26)
[2022-01-23] MEDS: APIXABAN 2.5 MG TAB PO SCH (23:16)
[2022-01-24] MEDS: TUBE FEEDING WATER FLUSH NG SCH ×6 (01:35→21:50)
[2022-01-24] MEDS: dilTIAZem HCL 125 MG in DEXTROSE 5% 100 ML IV SCH (04:00)
[2022-01-24 06:39] LABS: Hematocrit (blood only) 38.9 % (34.1-44.9); Hemoglobin 13.4 g/dl (12.0-16.0); Mean Corpuscular Hemoglobin 31.5 pg (25.0-34.0); Mean Corpuscular Hgb Conc 34.4 g/dL (32.0-36.0); Mean Corpuscular Volume 91.3 fL (80.0-100.0); Mean Platelet Volume 12.5 fL (9.4-12.3); Platelet Count 115 K/uL (130-400); RDW Standard Deviation 43.4 fL (36.4-46.3); Red Blood Count 4.26 M/uL (3.93-5.22); White Blood Count 7.82 K/ul (4.8-10.8)
--- NOTE | 2022-01-24 07:00 | Hospitalist Progress Note ---
Date of Service January 24, 2022 Assessment & Plan (1) Atrial fibrillation with RVR: (2) Dementia: (3) Vitamin D deficiency: (4) Chronic ITP (idiopathic thrombocytopenia): (5) CKD (chronic kidney disease), stage III: (6) Hypertension: (7) Carotid artery disease: (8) Pneumonia: Cindi Bosch is an 86 year old female with PMH CAD s/p LCx stent, dementia, HTN, HLD, CKD3, osteoporosis, chronic ITP presenting with altered mental status. Atrial fibrillation with RVR ([facility], [facility] 2) - ED: IV diltiazem, IV Lopressor x1 in with improvement from 140s to 110s - 01/13: Repeat EKG on showed continue Afib w/ RVR, received one liter LR @50mL/hr. - 01/13: Increased metoprolol IV from 5mg to 10mg Q6 on. - 01/14: Patient still remained in Afib with RVR with the rates 120-140's, ordered a 15mg Cardizem 15mg IV push at that time. - 01/14: Started Cardizem drip on with telemetry monitoring - 01/16: IV Cardizem d/c, began PO Cardizem 30 mg TID and metoprolol 50 mg BID 01/16 - 01/17: Transferred to med/surg w/o telemetry 01/17, Increased Cardizem to 30 mg Q6h - 01/18: Started prophylactic anticoagulation, discuss therapeutic dosing w/ family (attempted 01/19 PM and 01/20 AM, no answer) - 01/19: Required Lopressor 5 mg X 3 overnight, remains elevated AM, Refusing PO, started Diltiazen IV d/t RVR, Started IV Cardizem drip AM d/t HR 120-130 - 01/20: Rates 80-90 on Cardizem drip, Added LR at 100 ml/hr - 01/21: IV Cardizem drip and Unasyn, Rates 120-130, Cardizem to 15 mg/hr, NG Tube Feeding - discussed with family and placed NGT, LR 100 ml/hr, 500cc bolus LR @ 1430 - 01/22: IV Cardizem drip ongoing, rates 90-110 overnight, nursing notified to de crease to 10 mg from 15 mg, repleted K, 10 mEq x 4, Ongoing NGT, Ongoing LR @ 100 mL/h - 01/23: Started Eliquis 2.5 mg PO BID (crush and provide through NGT), received dose of Digoxin 125 mcg, Cardizem discontinued, Metoprolol 25 mg PO BID reinstated, PM d/t elevated BP and HR, restarted Cardizem @ 5 mg, gave IV Lopressor 5 mg. Home Lisinopril re-started 01/23. --- 01/24 Cardizem discontinued, Metoprolol increased to 50 mg BID, BP/HR elevated in PM, given dose of Digoxin 125 mcg IV Acutely altered mental status in setting of chronic cognitive decline - Encephalopathy likely secondary to acute infection, CT negative for acute event - ECHO (2021): EF 50-55%, no significant changes from 2014 - 01/12 Ammonia levels normal - 01/13 Patient's mental status and lung function improved - 01/17 Received Seroquel overnight d/t agitation - 01/18 Repeat speech eval requested, NPO advised 01/19 - 01/19 Transitioned to IV medications d/t medication refusal/agitation/NPO --- 01/23 Pending placement Acute bacterial pneumonia superimposed on COVID - CXR showed left basilar opacity, small left pleural effusion, cardiomegaly with mild pulmonary edema - Ceftriaxone, azithromycin given in ED for suspected superimposed bacterial pneumonia on COVID-19 infection with procalcitonin 8, questionable contribution from aspiration given pt's recent AMS and functional decline - Elevated troponin likely d/t demand ischemia from acute infection - 01/12: Started on azithromycin, switched ceftriaxone to Unasyn to better cover anaerobes for possible aspiration as above, MRSA nares neg - 01/15 Azithromycin and Unasyn stopped due to the patient clinical improvement, Continue DuoNeb PRN - 01/16 Steroid taper complete, d/c Remdesivir 100mg IV QD- pt received 4 doses, began Augmentin 875 mg BID - 01/19 Transitioned to IV Unasyn d/t NPO (per speech evaluation) - 01/20 Continue IV Unasyn, Leukocytosis 13.45 - 01/21 Leukocytosis 11.02, Repeat CXR ---> Improvement of left basilar opacity, favors resolving pneumonia, follow q 2-3 days - 01/22 Leukocytosis resolved - 01/23 discontinue IV Unasyn, leukocytosis resolved, repeat CXR in AM --- 01/24 CXR indicating increased left pleural effusions w/ basilar opacity, decreased LR by half to 50 ml/hr COVID-19 infection - CXR findings as above - d/c remdesivir, 4 total doses given - d/c dexamethasone taper - On admission required 6L NC. Now on RA. --- Day since presentation w/ COVID sx Thrombocytopenia - Resolved, following Chronic Conditions * CAD s/p LCx stent - Continue lisinopril, metoprolol, pravastatin * HTN - Continue lisinopril 20 mg daily (restarted 01/23) * HLD - Pravastatin held 01/19 * CKD3 - Continue renal dosing for medication * Vitamin D deficiency - Held 01/19 d/t IV medication requirement FEN: NPO, speech following, LR @ 100, NGT Code status: DNR/DNI DVT ppx: Lovenox Isolation: COVID + (02/01) PT/OT: Ordered Dispo: Placement on hold d/t Cardizem drip Admission and Anticipated Discharge Date Admission Date: January 11, 2022 Supervising Physician Co-Signing Physician Notes Patient seen and examined independently of PGY-1 Dr. Saavedra. Agree with history, exam findings, assessment and plan of care as outlined. 86 year old female with hx of CAD s/p LCx PCI, dementia, HTN, HLD, CKD, osteoporosis and chronic ITP admitted with altered mental status. Unable to obtain history from Danitza. Gets agitated when nursing care is performed and blood pressure and heart rate increases. VS and nursing notes reviewed. Ill appearing. Tacky mucous membranes. Tongue is dry. Very challenging to understand what she is saying. Heart is irregularly irregular. Lungs with coarse breath sounds throughout. Abdomen is soft, non-tender. She is able to follow commands. Moves all extremities. Labs and imaging reviewed. 1. Encephalopathy due to acute bacterial pneumonia superimposed on COVID-19 infection. Currently NPO due high aspiration risk, but getting tube feeds and crushed meds through NG tube. 2. Acute bacterial pneumonia superimposed on COVID-19 infection. CXR with left basilar opacity. Completed Remdesivir and dexamethasone. Completed antibiotic course for bacterial pneumonia. Antibiotics stopped today. 3. Atrial fibrillation with RVR. Off cardizem drip this afternoon, but HRs and BPs increase when she is agitated. Increased metoprolol to 50mg BID. Appreciate cardiology recommendations. 4. left pleural effusion. Increased on today's CXR compared to 01/21. Now that she is getting TFs with free water flushes, will decrease her IVFs so we are not overloading her with fluids. Her blood pressure would be able to withstand a dose or two of Lasix if needed. 4. CAD, HTN. Continue lisinopril, pravastatin and metoprolol. Dispo: Unclear how much clinical improvement we can expect at this point. Dr. Saavedra attempted several times to reach patient's son today. Arpita Bosch is an 86 yo female with PMH CAD s/p LCx stent, dementia, HTN, HLD, CKD3, osteoporosis, chronic ITP presenting with altered mental status. 01/24: Minimally verbaly at visit, increased aggression towards staff observed. Not able to redirect with verbal stimuli. No meaningful HPI. Tele: Rates 80s - 100s overnight, Afib 01/23: Minimally verbal. Resting comfortably upon presentation. Responds to verbal stimuli, follows some commands. Attempts to convers, but inaudible. Patient denies pain, otherwise no meaningful HPI. Review of Systems Review of Systems: As per HPI Physical Exam Physical Exam: Gen: NAD, responsive to verbal cues, AO x ?, comfortable, apparent difficulty w/ swallow Neuro: Moves extremities symmetrically (but not on command) HEENT: Mouth visibly dry w/ appreciable cracking of tongue Resp:Non-labored, no wheezing/rhonchi/rales, CTAB, audible upper airway cough/gargling CV:Irregular rhythm, rate controlled (80s @ 0900 ), normal S1/S2, no M/R/G Abd: Soft, non-distended, no TTP, normoactive bowels, no masses Extr: 2+ dp bilaterally, no edema Results & Data Results & Data ([facility]) Vital Signs (Past 12 Hours) Vital Signs Temp Pulse Pulse Resp BP Pulse Ox O2 Del Method 01/24/22 06:37 36.8 C 88 20 144/87 H 97 Room Air 01/24/22 02:40 36.5 C 94 H 20 159/89 H 98 01/23/22 23:50 107 H 01/23/22 23:18 36.7 C 99 H 20 132/80 96 Room Air 01/23/22 20:47 Room Air Resident Activity Tracking Resident Involvement: Resident Care Provided Care Provided: Adult Hospital Medicine (1) Dementia Alzheimer's disease onset: late-onset Dementia behavioral disturbance: with behavioral disturbance Dementia type: Alzheimer's disease Qualified Code(s): G30.1 - Alzheimer's disease with late onset; F02.81 - Dementia in other diseases classified elsewhere with behavioral disturbance (2) Hypertension Hypertension type: essential hypertension Qualified Code(s): I10 - Essential (primary) hypertension
[2022-01-24 07:23] LABS: Albumin Globulin Ratio 0.8 (0.9-2); Albumin Level 2.7 gm/dl (3.4-5.0); BUN Creatinine Ratio 18.8 (10-20); Bilirubin,Total 0.9 mg/dl (0.2-1.0); Calcium 8.3 mg/dl (8.5-10.1); Creatinine Clr Calc Pharmacy 72.4 ml/min; Est GFR (African American) 101.5 ml/min; Est GFR (Non-African American) 87.6 ml/min; Globulin 3.5 gm/dl (2.5-4.0); Potassium 3.4 mmol/L (3.5-5.1); Total Protein 6.2 gm/dl (6.0-8.3)
[2022-01-24] MEDS: LACTATED RINGER'S 1,000 ML IV SCH ×2 (08:05→20:06)
[2022-01-24] MEDS: APIXABAN 2.5 MG TAB PO SCH ×2 (08:06→20:07)
[2022-01-24] MEDS: MULTI VIT W/MINERALS LIQUID 15 ML UDP NG SCH (08:07)
[2022-01-24] MEDS: METOPROLOL TARTRATE 25 MG TAB PO SCH (08:07)
--- NOTE | 2022-01-24 08:16 | XRay Report ---
XR chest 1V portable CLINICAL HISTORY: Follow-up pneumonia. COMPARISON STUDY: Chest radiograph January 21, 2022. FINDINGS: Tip of feeding tube is below the lower aspect of this image but at least within the body of the stomach. There is no pneumothorax. Small left pleural effusion has slightly increased since prio r exam. Left basilar opacity has increased. No evidence for pulmonary edema. Cardiomediastinal silhou ette is stable. IMPRESSION: Small left pleural effusion with left basilar opacity. This may reflect pneumonia or atel ectasis. Radiographic follow-up is recommended to ensure resolution and exclude the possibility of an underlying pulmonary lesion. ACT 112: Negative or not required by law. Electronically signed by: Russell Mari M.D. 01/24/2022 8:15 AM
[2022-01-24] MEDS: lisinopril 20 MG TAB PO SCH (10:00)
[2022-01-24] MEDS: POTASSIUM CHLORIDE PWD 20 MEQ PACK PO SCH (10:00)
--- NOTE | 2022-01-24 12:09 | Cardiology Progress Note ---
Date of Service January 24, 2022 Assessment & Plan Admission and Anticipated Discharge Date Admission Date: January 11, 2022 Subjective Today's visit was completed via telehealth (via phone). I have spent 12 minutes discussing her medical conditions and treatment options. This included discussion with her hospitalist service. The patient is significantly confused and therefore is unable to give any pertinent history. The history is obtained from the chart. I was in the hospital and the patient was in her room. Results & Data ([facility]) Vital Signs (Past 12 Hours) Vital Signs Temp Pulse Resp BP Pulse Ox O2 Del Method O2 Del Method 01/24/22 08:00 Room Air 01/24/22 08:00 Room Air 01/24/22 06:37 36.8 C 88 20 144/87 H 97 Room Air 01/24/22 02:40 36.5 C 94 H 20 159/89 H 98 no exam was performed as this was a telehealth visit IMPRESSIONS: Acutely altered mental status in setting of chronic cognitive decline Acute bacterial pneumonia superimposed on COVID Atrial fibrillation with RVR COVID-19 infection Echo this admission with low normal left ventricular systolic function and no regional wall motion abnormalities Heart rates are still fast with atrial fibrillation although they are improved. She has lots of blood pressure room to increase her beta-blockers. I would increase her metoprolol to 50 mg twice daily. If she runs out of blood pressure room her lisinopril could always be reduced to uptitrate her AV nya blockers. We could use digoxin if we had to but given her increased sympathetic drive it is less likely to be effective long-term. Heart rates are fast due to her underlying COVID and other comorbidities. She is currently on low-dose Eliquis.
[2022-01-24] MEDS ORDERED: METOPROLOL TARTRATE 25 MG TAB PO ONE (12:30)
[2022-01-24] MEDS ORDERED: DIGOXIN 125 MCG in SYRINGE 9.5 ML IV ONE (16:00)
[2022-01-24] MEDS ORDERED: DEXTROSE 50% 50 ML SYRINGE IV ONE (18:09)
[2022-01-24] MEDS: QUEtiapine FUMARATE 25 MG TABLET PO SCH (18:42)
[2022-01-24] MEDS ORDERED: METOPROLOL TARTRATE 50 MG TAB PO SCH (21:00)
[2022-01-25] MEDS: TUBE FEEDING WATER FLUSH NG SCH ×6 (02:00→20:33)
[2022-01-25 06:41] LABS: Hematocrit (blood only) 39.3 % (34.1-44.9); Hemoglobin 13.4 g/dl (12.0-16.0); Mean Corpuscular Hemoglobin 31.2 pg (25.0-34.0); Mean Corpuscular Hgb Conc 34.1 g/dL (32.0-36.0); Mean Corpuscular Volume 91.6 fL (80.0-100.0); RDW Coefficient of Variation 13.1 % (11.5-14.5); RDW Standard Deviation 43.9 fL (36.4-46.3); Red Blood Count 4.29 M/uL (3.93-5.22); White Blood Count 8.09 K/ul (4.8-10.8)
--- NOTE | 2022-01-25 06:58 | Hospitalist Progress Note ---
Date of Service January 25, 2022 Assessment & Plan (1) Atrial fibrillation with RVR: (2) Dementia: (3) Vitamin D deficiency: (4) Chronic ITP (idiopathic thrombocytopenia): (5) CKD (chronic kidney disease), stage III: (6) Hypertension: (7) Carotid artery disease: (8) Pneumonia: Cindi Bosch is an 86 year old female with PMH CAD s/p LCx stent, dementia, HTN, HLD, CKD3, osteoporosis, chronic ITP presenting with altered mental status. Atrial fibrillation with RVR ([place], [facility]VASC 2) - ED: IV diltiazem, IV Lopressor x1 in with improvement from 140s to 110s - 01/13: Repeat EKG on showed continue Afib w/ RVR, received one liter LR @50mL/hr. - 01/13: Increased metoprolol IV from 5mg to 10mg Q6 on. - 01/14: Patient still remained in Afib with RVR with the rates 120-140's, ordered a 15mg Cardizem 15mg IV push at that time. - 01/14: Started Cardizem drip on with telemetry monitoring - 01/16: IV Cardizem d/c, began PO Cardizem 30 mg TID and metoprolol 50 mg BID 01/16 - 01/17: Transferred to med/surg w/o telemetry 01/17, Increased Cardizem to 30 mg Q6h - 01/18: Started prophylactic anticoagulation, discuss therapeutic dosing w/ family (attempted 01/19 PM and 01/20 AM, no answer) - 01/19: Required Lopressor 5 mg X 3 overnight, remains elevated AM, Refusing PO, started Diltiazen IV d/t RVR, Started IV Cardizem drip AM d/t HR 120-130 - 01/20: Rates 80-90 on Cardizem drip, Added LR at 100 ml/hr - 01/21: IV Cardizem drip and Unasyn, Rates 120-130, Cardizem to 15 mg/hr, NG Tube Feeding - discussed with family and placed NGT, LR 100 ml/hr, 500cc bolus LR @ 1430 - 01/22: IV Cardizem drip ongoing, rates 90-110 overnight, nursing notified to de crease to 10 mg from 15 mg, repleted K, 10 mEq x 4, Ongoing NGT, Ongoing LR @ 100 mL/h - 01/23: Started Eliquis 2.5 mg PO BID (crush and provide through NGT), received dose of Digoxin 125 mcg, Cardizem discontinued, Metoprolol 25 mg PO BID reinstated, PM d/t elevated BP and HR, restarted Cardizem @ 5 mg, gave IV Lopressor 5 mg. Home Lisinopril re-started 01/23. - 01/24 Cardizem discontinued, Metoprolol increased to 50 mg BID, BP/HR elevated in PM, given dose of Digoxin 125 mcg IV --- 01/25 Increased Metoprolol to 75 mg BID per Cardiology recommendation, BP/HR elevation occurring w/ agitation Acutely altered mental status in setting of chronic cognitive decline - Encephalopathy likely secondary to acute infection, CT negative for acute event - ECHO (2021): EF 50-55%, no significant changes from 2014 - 01/12 Ammonia levels normal - 01/13 Patient's mental status and lung function improved - 01/17 Received Seroquel overnight d/t agitation - 01/18 Repeat speech eval requested, NPO advised 01/19 - 01/19 Transitioned to IV medications d/t medication refusal/agitation/NPO --- Placement paused d/t clinical state Acute bacterial pneumonia superimposed on COVID - CXR showed left basilar opacity, small left pleural effusion, cardiomegaly with mild pulmonary edema - Ceftriaxone, azithromycin given in ED for suspected superimposed bacterial pneumonia on COVID-19 infection with procalcitonin 8, questionable contribution from aspiration given pt's recent AMS and functional decline - Elevated troponin likely d/t demand ischemia from acute infection - 01/12: Started on azithromycin, switched ceftriaxone to Unasyn to better cover anaerobes for possible aspiration as above, MRSA nares neg - 01/15 Azithromycin and Unasyn stopped due to the patient clinical improvement, Continue DuoNeb PRN - 01/16 Steroid taper complete, d/c Remdesivir 100mg IV QD- pt received 4 doses, began Augmentin 875 mg BID - 01/19 Transitioned to IV Unasyn d/t NPO (per speech evaluation) - 01/20 Continue IV Unasyn, Leukocytosis 13.45 - 01/21 Leukocytosis 11.02, Repeat CXR ---> Improvement of left basilar opacity, favors resolving pneumonia, follow q 2-3 days - 01/22 Leukocytosis resolved - 01/23 discontinue IV Unasyn, leukocytosis resolved, repeat CXR in AM - 01/24 CXR indicating increased left pleural effusions w/ basilar opacity, decreased LR by half to 50 ml/hr COVID-19 infection - CXR findings as above - d/c remdesivir, 4 total doses given - d/c dexamethasone taper - On admission required 6L NC. Now on RA. --- Day since presentation w/ COVID sx Thrombocytopenia - Resolved, following Chronic Conditions * CAD s/p LCx stent - Continue lisinopril, metoprolol, pravastatin * HTN - Continue lisinopril 20 mg daily (restarted 01/23) * HLD - Pravastatin held 01/19 * CKD3 - Continue renal dosing for medication * Vitamin D deficiency - Held 01/19 d/t IV medication requirement FEN: NPO, speech following, LR @ 50, NGT Code status: DNR/DNI DVT ppx: Regina (therapeutic) Isolation: COVID + () PT/OT: Ordered Dispo: Placement on hold Admission and Anticipated Discharge Date Admission Date: January 11, 2022 Supervising Physician Co-Signing Physician Notes I personally examined the patient and verified all dubois points of history and exam, discussed case, and agree with decision making with Dr Saavedra No meaningful HPI review of systems obtainable. Discussed with resident physician who also discussed with family. Vitals noted, in general she is sleeping does not really respond to voice or exam today. Does not appear to be in pain or respiratory distress. HEENT normocephalic atraumatic mucous membranes moist. Lungs clear to auscultation bilaterally no rales rhonchi or wheezes with moderate spontaneous effort. Abdomen soft nondistended no apparent tenderness. Extremities without erythema edema 1. Encephalopathy due to acute bacterial pneumonia superimposed on COVID-19 infection. Currently NPO due high aspiration risk, family notes with no improvement I would like to move towards discontinuation of NG tube as she would not have wanted any prolonged feeding tube 2. Acute bacterial pneumonia superimposed on COVID-19 infection. CXR with left basilar opacity. Completed Remdesivir and dexamethasone. Completed antibiotic course for bacterial pneumonia. Does not appear to be worse in this regard 3. Atrial fibrillation with RVR. Ongoing titration of rate control 4. left pleural effusion. 4. CAD, HTN. Continue current medications Dispo: Resident physician discussed with family today, they would like to move towards discontinuation of NG tube, she is going to discuss more with them at length tomorrow, and I suspect this will probably move into more of a palliative direction Arpita Bosch is an 86 yo female with PMH CAD s/p LCx stent, dementia, HTN, HLD, CKD3, osteoporosis, chronic ITP presenting with altered mental status. 01/25: Patient resting comfortably on arrival. No verbal interaction from patient at visit. Patient responsive to verbal stimuli and touch. No meaningful HPI. Aggression noted in visit. 01/24: Minimally verbally at visit, increased aggression towards staff observed. Not able to redirect with verbal stimuli. No meaningful HPI. Tele: Rates 80s - 100s overnight, Afib Review of Systems Review of Systems: As per HPI Physical Exam Physical Exam: Gen: NAD, responsive to verbal cues, AO x ?, comfortable, apparent difficulty w/ swallow Neuro: Moves extremities symmetrically (but not on command) HEENT: Mouth visibly dry w/ appreciable cracking of tongue Resp:Non-labored, no wheezing/rhonchi/rales, CTAB, audible upper airway cough/gargling CV:Irregular rhythm, rate controlled (100s @ 0830 ), normal S1/S2, no M/R/G Abd: Soft, non-distended, no TTP, normoactive bowels, no masses Extr: 2+ dp bilaterally, no edema Results & Data Results & Data ([facility]) Vital Signs (Past 12 Hours) Vital Signs Temp Pulse Pulse Resp BP Pulse Ox O2 Del Method 01/25/22 04:13 37.1 C 113 H 20 135/100 100 Room Air 01/24/22 22:49 37.5 C 90 20 185/97 H 92 Room Air 01/25/22 01:36 102 H 01/24/22 20:24 Room Air 01/24/22 20:04 37.5 C 101 H 20 156/80 H 98 Room Air Resident Activity Tracking Resident Involvement: Resident Care Provided Care Provided: Adult Hospital Medicine (1) Dementia Alzheimer's disease onset: late-onset Dementia behavioral disturbance: with behavioral disturbance Dementia type: Alzheimer's disease Qualified Code(s): G30.1 - Alzheimer's disease with late onset; F02.81 - Dementia in other diseases classified elsewhere with behavioral disturbance (2) Hypertension Hypertension type: essential hypertension Qualified Code(s): I10 - Essential (primary) hypertension
[2022-01-25 07:00] LABS: Albumin Globulin Ratio 0.8 (0.9-2); Albumin Level 2.8 gm/dl (3.4-5.0); Bilirubin,Total 0.9 mg/dl (0.2-1.0); Calcium 8.5 mg/dl (8.5-10.1); Creatinine Clr Calc Pharmacy 70.6 ml/min; Est GFR (African American) 101.5 ml/min; Est GFR (Non-African American) 87.6 ml/min; Globulin 3.6 gm/dl (2.5-4.0); Potassium 3.6 mmol/L (3.5-5.1); Total Protein 6.4 gm/dl (6.0-8.3)
[2022-01-25 07:05] LABS: Mean Platelet Volume 13.1 fL (9.4-12.3); Platelet Count 103 K/uL (130-400)
[2022-01-25] MEDS: APIXABAN 2.5 MG TAB PO SCH ×2 (08:54→20:31)
[2022-01-25] MEDS: lisinopril 20 MG TAB PO SCH (08:55)
[2022-01-25] MEDS: MULTI VIT W/MINERALS LIQUID 15 ML UDP NG SCH (08:56)
[2022-01-25] MEDS: POTASSIUM CHLORIDE PWD 20 MEQ PACK PO SCH (08:56)
[2022-01-25] MEDS: METOPROLOL TARTRATE 25 MG TAB PO SCH ×2 (09:05→20:32)
[2022-01-25] MEDS: LACTATED RINGER'S 1,000 ML IV SCH (11:25)
--- NOTE | 2022-01-25 15:34 | Cardiology Progress Note ---
Date of Service January 25, 2022 Assessment & Plan (1) Atrial fibrillation with RVR: (2) CAD (coronary artery disease): (3) Dementia: (4) Pneumonia: (5) SARS-CoV-2 positive: Plan No major change in clinical status. BP normotensive to mildly hypertensive. Improving but still suboptimally controlled ventricular response to atrial fibrillation. Agree with increasing metoprolol further (changed from metoprolol 50 mg twice daily to metoprolol 75 mg twice daily today). So far BP has tolerated metoprolol adjustment, if BP approaches low normal would discontinue lisinopril and continue to titrate metoprolol upward. Heart rate goal is 80-100 bpm while in atrial fibrillation. She is on low-dose apixaban for anticoagulation. Admission and Anticipated Discharge Date Admission Date: January 11, 2022 Subjective Patient confused and isolated due to COVID. Chart and telemetry reviewed. Telemetry showed persistent atrial fibrillation with rates as high as 170 bpm yesterday, improving with rates 100-120 bpm today. Physical Exam Constitutional: Not examined. Results & Data ([facility]) Vital Signs (Past 12 Hours) Vital Signs Temp Pulse Pulse Resp BP Pulse Ox O2 Del Method 01/25/22 15:19 103 H 01/25/22 08:00 Room Air 01/25/22 08:00 98.8 F 62 18 101/81 96 Room Air 01/25/22 12:36 99.1 F 97 H 20 139/87 99 Room Air 01/25/22 07:00 101 H 01/25/22 04:13 98.8 F 113 H 20 135/100 100 Room Air Laboratory Results Sodium 134, otherwise normal electrolytes, BUN 12, creatinine 0.48. PG Care Time/CCT Total # of Minutes Spent Total Time Spent with Patient: Total time spent is greater than 50% in coordination of care (as documented) at patient's floor/unit and/or counseling patient: Coding Level of Care Code 47207 Subseq Hosp Care Lvl 3 Diagnoses Atrial fibrillation with RVR I48.91 CAD (coronary artery disease) I25.10 Coronary Disease-Associated Artery/Lesion type: [place] artery [place] vs. transplanted heart: [place] heart Associated angina: without angina Dementia G30.1; F02.81 Dementia type: Alzheimer's disease Alzheimer's disease onset: late-onset Dementia behavioral disturbance: with behavioral disturbance Pneumonia J18.9 SARS-CoV-2 positive U07.1 (1) Dementia Dementia type: Alzheimer's disease Alzheimer's disease onset: late-onset Dementia behavioral disturbance: with behavioral disturbance Qualified Code(s): G30.1 - Alzheimer's disease with late onset; F02.81 - Dementia in other diseases classified elsewhere with behavioral disturbance (2) CAD (coronary artery disease) Coronary Disease-Associated Artery/Lesion type: [place] artery [place] vs. transplanted heart: [place] heart Associated angina: without angina Qualified Code(s): I25.10 - Atherosclerotic heart disease of [place] coronary artery without angina pectoris
[2022-01-25] MEDS: FIBERSOURCE HN 1.2 CAL 1000 ML BAG NG SCH (15:37)
[2022-01-25] MEDS: dilTIAZem HCL 125 MG in DEXTROSE 5% 100 ML IV SCH ×2 (16:33→16:34)
--- NOTE | 2022-01-25 18:07 | Billing Data ---
Date of Service January 25, 2022 Coding Level of Care Code 00763 Subseq Hosp Care Lvl 2
[2022-01-25] MEDS: QUEtiapine FUMARATE 25 MG TABLET PO SCH (20:33)
[2022-01-25] MEDS: ACETAMINOPHEN 1000 MG/100 ML IV IV SCH (21:32)
[2022-01-26] MEDS: TUBE FEEDING WATER FLUSH NG SCH ×3 (01:19→09:11)
[2022-01-26] MEDS: ACETAMINOPHEN 1000 MG/100 ML IV IV SCH ×3 (05:37→22:36)
[2022-01-26 06:43] LABS: Hematocrit (blood only) 40.9 % (34.1-44.9); Hemoglobin 14.1 g/dl (12.0-16.0); Mean Corpuscular Hemoglobin 31.5 pg (25.0-34.0); Mean Corpuscular Hgb Conc 34.5 g/dL (32.0-36.0); Mean Corpuscular Volume 91.5 fL (80.0-100.0); RDW Coefficient of Variation 13.1 % (11.5-14.5); Red Blood Count 4.47 M/uL (3.93-5.22)
[2022-01-26 06:58] LABS: Mean Platelet Volume 13.3 fL (9.4-12.3); Platelet Count 97 K/uL (130-400)
--- NOTE | 2022-01-26 07:08 | Hospitalist Progress Note ---
Date of Service January 26, 2022 Assessment & Plan (1) Atrial fibrillation with RVR: (2) Dementia: (3) Vitamin D deficiency: (4) Chronic ITP (idiopathic thrombocytopenia): (5) CKD (chronic kidney disease), stage III: (6) Hypertension: (7) Carotid artery disease: (8) Pneumonia: Cindi Bosch is an 86 year old female with PMH CAD s/p LCx stent, dementia, HTN, HLD, CKD3, osteoporosis, chronic ITP presenting with altered mental status. 01/26 Per family decision, patient was transitioned to comfort measures only. Her NGT was removed, thus preventing her form receiving PO medications. Family expressed that they only wish for her to receive additional medications if it will provide comfort to her or prevent her from experiencing pain. Patient is DNR/DNI. Orders have been placed and case management has been consulted for recommendations regarding outpatient hospice when appropriate. Atrial fibrillation with RVR ([facility], [facility]VASC 2) - ED: IV diltiazem, IV Lopressor x1 in with improvement from 140s to 110s - 01/13: Repeat EKG on showed continue Afib w/ RVR, received one liter LR @50mL/hr. - 01/13: Increased metoprolol IV from 5mg to 10mg Q6 on. - 01/14: Patient still remained in Afib with RVR with the rates 120-140's, ordered a 15mg Cardizem 15mg IV push at that time. - 01/14: Started Cardizem drip on with telemetry monitoring - 01/16: IV Cardizem d/c, began PO Cardizem 30 mg TID and metoprolol 50 mg BID 01/16 - 01/17: Transferred to med/surg w/o telemetry 01/17, Increased Cardizem to 30 mg Q6h - 01/18: Started prophylactic anticoagulation, discuss therapeutic dosing w/ family (attempted 01/19 PM and 01/20 AM, no answer) - 01/19: Required Lopressor 5 mg X 3 overnight, remains elevated AM, Refusing PO, started Diltiazen IV d/t RVR, Started IV Cardizem drip AM d/t HR 120-130 - 01/20: Rates 80-90 on Cardizem drip, Added LR at 100 ml/hr - 01/21: IV Cardizem drip and Unasyn, Rates 120-130, Cardizem to 15 mg/hr, NG Tube Feeding - discussed with family and placed NGT, LR 100 ml/hr, 500cc bolus LR @ 1430 - 01/22: IV Cardizem drip ongoing, rates 90-110 overnight, nursing notified to decrease to 10 mg from 15 mg, repleted K, 10 mEq x 4, Ongoing NGT, Ongoing LR @ 100 mL/h - 01/23: Started Eliquis 2.5 mg PO BID (crush and provide through NGT), received dose of Digoxin 125 mcg, Cardizem discontinued, Metoprolol 25 mg PO BID reinstated, PM d/t elevated BP and HR, restarted Cardizem @ 5 mg, gave IV Lopressor 5 mg. Home Lisinopril re-started 01/23. - 01/24 Cardizem discontinued, Metoprolol increased to 50 mg BID, BP/HR elevated in PM, given dose of Digoxin 125 mcg IV - 01/25 Increased Metoprolol to 75 mg BID per Cardiology recommendation, BP/HR elevation occurring w/ agitation Acutely altered mental status in setting of chronic cognitive decline - Encephalopathy likely secondary to acute infection, CT negative for acute event - ECHO (2021): EF 50-55%, no significant changes from 2014 - 01/12 Ammonia levels normal - 01/13 Patient's mental status and lung function improved - 01/17 Received Seroquel overnight d/t agitation - 01/18 Repeat speech eval requested, NPO advised 01/19 - 01/19 Transitioned to IV medications d/t medication refusal/agitation/NPO --- 01/26 Appreciate Cardiology's recommendations. Comfort care only chosen by family moving forward. Acute bacterial pneumonia superimposed on COVID - CXR showed left basilar opacity, small left pleural effusion, cardiomegaly with mild pulmonary edema - Ceftriaxone, azithromycin given in ED for suspected superimposed bacterial pneumonia on COVID-19 infection with procalcitonin 8, questionable contribution from aspiration given pt's recent AMS and functional decline - Elevated troponin likely d/t demand ischemia from acute infection - 01/12: Started on azithromycin, switched ceftriaxone to Unasyn to better cover anaerobes for possible aspiration as above, MRSA nares neg - 01/15 Azithromycin and Unasyn stopped due to the patient clinical improvement, Continue DuoNeb PRN - 01/16 Steroid taper complete, d/c Remdesivir 100mg IV QD- pt received 4 doses, began Augmentin 875 mg BID - 01/19 Transitioned to IV Unasyn d/t NPO (per speech evaluation) - 01/20 Continue IV Unasyn, Leukocytosis 13.45 - 01/21 Leukocytosis 11.02, Repeat CXR ---> Improvement of left basilar opacity, favors resolving pneumonia, follow q 2-3 days - 01/22 Leukocytosis resolved - 01/23 discontinue IV Unasyn, leukocytosis resolved, repeat CXR in AM - 01/24 CXR indicating increased left pleural effusions w/ basilar opacity, decreased LR by half to 50 ml/hr --- 01/26 Brief fever overnight, leukocytosis in AM, CXR showing small left pleural effusion with increase in left mid and lower lung opacity which favors pneumonia, breathing remains non-labored and patient is oxygenating well on room air COVID-19 infection - CXR findings as above - d/c remdesivir, 4 total doses given - d/c dexamethasone taper - On admission required 6L NC. Now on RA. --- Day since presentation w/ COVID sx Thrombocytopenia - Resolved, following Chronic Conditions * CAD s/p LCx stent - Hold lisinopril, metoprolol, pravastatin * HTN - Hold lisinopril 20 mg daily (restarted 01/23) * HLD - Hold Pravastatin * CKD3 - Hold renal dosing for medication * Vitamin D deficiency - Hold FEN: NPO Code status: DNR/DNI DVT ppx: Held Eliabena Isolation: COVID + () PT/OT: Ordered Dispo: Placement in hospice care CM: Consulted Admission and Anticipated Discharge Date Admission Date: January 11, 2022 Supervising Physician Co-Signing Physician Notes I personally examined the patient and verified all dubois points of history and exam, discussed case, and agree with decision making with Dr Saavedra No meaningful HPI review of systems obtainable. Resident physician discussed with familymoving towards comfort care/palliative goals, goal of SNF for discharge Vitals noted, no distress, breathing unlabored no accessory muscle use good effort. No focal or lateralizing defects 1. Encephalopathy due to acute bacterial pneumonia superimposed on COVID-19 infection. 2. Acute bacterial pneumonia superimposed on COVID-19 infection. CXR with left basilar opacity. Treated 3. Atrial fibrillation with RVR. Comfort goals 4. left pleural effusion. 4. CAD, HTN. Comfort goals Dispo: Transition to medical, goal of SNF with palliative/comfort focus Arpita Bosch is an 86 yo female with PMH CAD s/p LCx stent, dementia, HTN, HLD, CKD3, osteoporosis, chronic ITP presenting with altered mental status. 01/26: Patient comfortable upon arrival, but experienced agitation upon awakening. Patient unable to communicate at visit. No meaningful HPI. Patient remains responsive to touch and voice. 1430 Discussed goals of care, diagnosis, and prognosis with Tyree () and Keegan (brother in law). Both family members are requesting that patient be transitioned to comfort care measures. They are requesting establishment of hospice care in a nursing facility if patient is discharged from the hospital. Review of Systems Review of Systems: As per HPI Physical Exam Physical Exam: Gen: NAD, responsive to verbal cues, AO x ?, comfortable, apparent difficulty w/ swallow Neuro: Moves extremities symmetrically during agitation (but not on command) HEENT: Mouth visibly dry w/ appreciable cracking of tongue Resp:Non-labored, no wheezing/rhonchi/rales, CTAB, audible upper airway cough/gargling CV:Irregular rhythm, rate controlled (100s @ 0800 ), normal S1/S2, no M/R/G Abd: Soft, non-distended, no TTP, normoactive bowels, no masses Extr: 2+ dp bilaterally, no edema Results & Data Results & Data ([facility]) Vital Signs (Past 12 Hours) Vital Signs Temp Pulse Pulse Resp BP Pulse Ox O2 Del Method 01/26/22 05:28 37.1 C 01/26/22 03:53 110 H 18 122/67 94 Room Air 01/26/22 00:20 37.5 C 91 H 20 102/53 L 97 Room Air 01/25/22 23:50 99 H 01/25/22 21:50 Room Air 01/25/22 20:48 38.6 C H 147 H 20 175/129 H 97 Room Air Resident Activity Tracking Resident Involvement: Resident Care Provided Care Provided: Adult [facility] (1) Dementia Alzheimer's disease onset: late-onset Dementia behavioral disturbance: with behavioral disturbance Dementia type: Alzheimer's disease Qualified Code(s): G30.1 - Alzheimer's disease with late onset; F02.81 - Dementia in other diseases classified elsewhere with behavioral disturbance (2) Hypertension Hypertension type: essential hypertension Qualified Code(s): I10 - Essential (primary) hypertension
[2022-01-26 07:22] LABS: Albumin Globulin Ratio 0.8 (0.9-2); BUN Creatinine Ratio 23.8 (10-20); Calcium 9.3 mg/dl (8.5-10.1); Creatinine Clr Calc Pharmacy 53.8 ml/min; Est GFR (African American) 92.8 ml/min; Est GFR (Non-African American) 80.1 ml/min; Potassium 4.5 mmol/L (3.5-5.1)
[2022-01-26] MEDS: LACTATED RINGER'S 1,000 ML IV SCH (08:29)
[2022-01-26] MEDS: MULTI VIT W/MINERALS LIQUID 15 ML UDP NG SCH (08:30)
[2022-01-26] MEDS: lisinopril 20 MG TAB PO SCH (08:30)
[2022-01-26] MEDS: POTASSIUM CHLORIDE PWD 20 MEQ PACK PO SCH (08:31)
[2022-01-26] MEDS: METOPROLOL TARTRATE 25 MG TAB PO SCH (08:31)
[2022-01-26] MEDS: APIXABAN 2.5 MG TAB PO SCH (08:32)
--- NOTE | 2022-01-26 09:09 | XRay Report ---
XR chest 1V portable CLINICAL HISTORY: Fever. COMPARISON STUDY: Chest radiograph January 24, 2022. FINDINGS: Tip of feeding tube is below the lower aspect of this image but at least within the stomach . There is no pneumothorax. Small left pleural effusion is again noted. This has slightly decreased. There is persistent left basilar opacity with interval blunting of left midlung opacity. Cardiac size is stable. There is no evidence for pulmonary edema. IMPRESSION: Small left pleural effusion with increase in left mid and lower lung opacity which favor s pneumonia. Radiographic follow up to ensure resolution is recommended. ACT 112: Negative or not required by law. Electronically signed by: Russell Mari M.D. 01/26/2022 9:08 AM
--- NOTE | 2022-01-26 12:08 | Cardiology Progress Note ---
Date of Service January 26, 2022 Assessment & Plan (1) Atrial fibrillation with RVR: Plan: -still room for improvement on ventricular response. -consider digoxin 0.25 mg IV followed by 0.125 mg p.o. daily. -would not check a digoxin level for 3-5 days. -continue metoprolol tartrate 75 mg b.i.d. and diltiazem 30 mg q.6 hr. -continue Eliquis 2.5 mg b.i.d. (2) CAD (coronary artery disease): Plan: -s/p LCx SARAH, November 2012. -continue medical management. -no anti-platelet agent due to ITP. (3) SARS-CoV-2 positive: Plan: -per hospitalist's team. Admission and Anticipated Discharge Date Admission Date: January 11, 2022 Subjective Patient remains in COVID isolation. Chart and quality assurance monitor body reviewed. Physical Exam Physical Exam: Exam per hospitalist team as patient in COVID isolation. Results & Data ([facility]) Vital Signs (Past 12 Hours) Vital Signs Temp Pulse Pulse Resp BP Pulse Ox O2 Del Method 01/26/22 11:45 37.5 C 01/26/22 08:00 37.4 C 01/26/22 07:07 116 H 01/26/22 05:28 37.1 C 01/26/22 03:53 110 H 18 122/67 94 Room Air 01/26/22 00:20 37.5 C 91 H 20 102/53 L 97 Room Air Diagnostic Findings environmental monitoring specialist notes atrial fibrillation varying 90-110 beats per minute. PG Care Time/CCT Total # of Minutes Spent Total Time Spent with Patient: Total time spent is greater than 50% in coordination of care (as documented) at patient's floor/unit and/or counseling patient: Coding Level of Care Code 00067 Subseq Hosp Care Lvl 3 Diagnoses Atrial fibrillation with RVR I48.91 CAD (coronary artery disease) I25.10 Coronary Disease-Associated Artery/Lesion type: [place] artery [place] vs. transplanted heart: [place] heart Associated angina: without angina SARS-CoV-2 positive U07.1 (1) CAD (coronary artery disease) Coronary Disease-Associated Artery/Lesion type: [place] artery [place] vs. transplanted heart: [place] heart Associated angina: without angina Qualified Code(s): I25.10 - Atherosclerotic heart disease of [place] coronary artery without angina pectoris
[2022-01-26] MEDS ORDERED: LORazepam 0.5 MG TAB PO PRN (15:07)
[2022-01-26] MEDS ORDERED: ONDANSETRON INJ 2 MG/ML 2 ML VIAL IV PRN (15:07)
[2022-01-26] MEDS ORDERED: ONDANSETRON 4 MG OD TAB SL PRN (15:07)
--- NOTE | 2022-01-26 18:03 | Billing Data ---
Date of Service January 26, 2022 Coding Level of Care Code 37035 Subseq Hosp Care Lvl 3
[2022-01-26] MEDS: MoRPHine SULFATE 2 MG/ML CARP IV PRN (20:49)
[2022-01-26] MEDS: LORazepam 0.5 MG in SYRINGE 0 ML IV PRN (22:30)
[2022-01-27] MEDS: MoRPHine SULFATE 2 MG/ML CARP IV PRN ×5 (01:16→21:45)
[2022-01-27] MEDS: LORazepam 0.5 MG in SYRINGE 0 ML IV PRN ×3 (03:36→16:46)
[2022-01-27] MEDS: ACETAMINOPHEN 1000 MG/100 ML IV IV SCH ×3 (05:14→21:45)
--- NOTE | 2022-01-27 06:57 | Hospitalist Progress Note ---
Date of Service January 27, 2022 Assessment & Plan (1) Atrial fibrillation with RVR: (2) Dementia: (3) Vitamin D deficiency: (4) Chronic ITP (idiopathic thrombocytopenia): (5) CKD (chronic kidney disease), stage III: (6) Hypertension: (7) Carotid artery disease: (8) Pneumonia: Cindi Bosch is an 86 year old female with PMH CAD s/p LCx stent, dementia, HTN, HLD, CKD3, osteoporosis, chronic ITP presenting with altered mental status. 01/26 Per family decision, patient was transitioned to comfort measures only. Her NGT was removed, thus preventing her form receiving PO medications. Family expressed that they only wish for her to receive additional medications if it will provide comfort to her or prevent her from experiencing pain. Patient is DNR/DNI. Orders have been placed and case management has been consulted for recommendations regarding outpatient hospice when appropriate. --- Continue comfort measures Atrial fibrillation with RVR ([facility] [place], [facility]VASC 2) - ED: IV diltiazem, IV Lopressor x1 in with improvement from 140s to 110s - 01/13: Repeat EKG on showed continue Afib w/ RVR, received one liter LR @50mL/hr. - 01/13: Increased metoprolol IV from 5mg to 10mg Q6 on. - 01/14: Patient still remained in Afib with RVR with the rates 120-140's, ordered a 15mg Cardizem 15mg IV push at that time. - 01/14: Started Cardizem drip on with telemetry monitoring - 01/16: IV Cardizem d/c, began PO Cardizem 30 mg TID and metoprolol 50 mg BID 01/16 - 01/17: Transferred to med/surg w/o telemetry 01/17, Increased Cardizem to 30 mg Q6h - 01/18: Started prophylactic anticoagulation, discuss therapeutic dosing w/ family (attempted 01/19 PM and 01/20 AM, no answer) - 01/19: Required Lopressor 5 mg X 3 overnight, remains elevated AM, Refusing PO, started Diltiazen IV d/t RVR, Started IV Cardizem drip AM d/t HR 120-130 - 01/20: Rates 80-90 on Cardizem drip, Added LR at 100 ml/hr - 01/21: IV Cardizem drip and Unasyn, Rates 120-130, Cardizem to 15 mg/hr, NG Tube Feeding - discussed with family and placed NGT, LR 100 ml/hr, 500cc bolus LR @ 1430 - 01/22: IV Cardizem drip ongoing, rates 90-110 overnight, nursing notified to decrease to 10 mg from 15 mg, repleted K, 10 mEq x 4, Ongoing NGT, Ongoing LR @ 100 mL/h - 01/23: Started Eliquis 2.5 mg PO BID (crush and provide through NGT), received dose of Digoxin 125 mcg, Cardizem discontinued, Metoprolol 25 mg PO BID reinstated, PM d/t elevated BP and HR, restarted Cardizem @ 5 mg, gave IV L opressor 5 mg. Home Lisinopril re-started 01/23. - 01/24 Cardizem discontinued, Metoprolol increased to 50 mg BID, BP/HR elevated in PM, given dose of Digoxin 125 mcg IV - 01/25 Increased Metoprolol to 75 mg BID per Cardiology recommendation, BP/HR elevation occurring w/ agitation Acutely altered mental status in setting of chronic cognitive decline - Encephalopathy likely secondary to acute infection, CT negative for acute event - ECHO (2021): EF 50-55%, no significant changes from 2014 - 01/12 Ammonia levels normal - 01/13 Patient's mental status and lung function improved - 01/17 Received Seroquel overnight d/t agitation - 01/18 Repeat speech eval requested, NPO advised 01/19 - 01/19 Transitioned to IV medications d/t medication refusal/agitation/NPO - 01/26 Appreciate Cardiology's recommendations. Comfort care only chosen by family moving forward. Acute bacterial pneumonia superimposed on COVID - CXR showed left basilar opacity, small left pleural effusion, cardiomegaly with mild pulmonary edema - Ceftriaxone, azithromycin given in ED for suspected superimposed bacterial pneumonia on COVID-19 infection with procalcitonin 8, questionable contribution from aspiration given pt's recent AMS and functional decline - Elevated troponin likely d/t demand ischemia from acute infection - 01/12: Started on azithromycin, switched ceftriaxone to Unasyn to better cover anaerobes for possible aspiration as above, MRSA nares neg - 01/15 Azithromycin and Unasyn stopped due to the patient clinical improvement, Continue DuoNeb PRN - 01/16 Steroid taper complete, d/c Remdesivir 100mg IV QD- pt received 4 doses, began Augmentin 875 mg BID - 01/19 Transitioned to IV Unasyn d/t NPO (per speech evaluation) - 01/20 Continue IV Unasyn, Leukocytosis 13.45 - 01/21 Leukocytosis 11.02, Repeat CXR ---> Improvement of left basilar opacity, favors resolving pneumonia, follow q 2-3 days - 01/22 Leukocytosis resolved - 01/23 discontinue IV Unasyn, leukocytosis resolved, repeat CXR in AM - 01/24 CXR indicating increased left pleural effusions w/ basilar opacity, decreased LR by half to 50 ml/hr - 01/26 Brief fever overnight, leukocytosis in AM, CXR showing small left pleural effusion with increase in left mid and lower lung opacity which favors pneumonia, breathing remains non-labored and patient is oxygenating well on room air --- Breathing mildly labored, patient oxygenating well on room air. COVID-19 infection - CXR findings as above - d/c remdesivir, 4 total doses given - d/c dexamethasone taper - On admission required 6L NC. Now on RA. Thrombocytopenia - Resolved, following Chronic Conditions * CAD s/p LCx stent - Hold lisinopril, metoprolol, pravastatin * HTN - Hold lisinopril 20 mg daily (restarted 01/23) * HLD - Hold Pravastatin * CKD3 - Hold renal dosing for medication * Vitamin D deficiency - Hold FEN: NPO Code status: DNR/DNI, comfort care DVT ppx: Held Eliquis Isolation: COVID + () PT/OT: Ordered Dispo: Placement in hospice care CM: Consulted Admission and Anticipated Discharge Date Admission Date: January 11, 2022 Supervising Physician Co-Signing Physician Notes I personally examined the patient and verified all [place] points of history and exam, discussed case, and agree with decision making with Dr Saavedra No meaningful HPI review of systems obtainable. ongoing comfort care Vitals noted, no distress, breathing unlabored but is rather shallow and at times gasping no accessory muscle use good effort. No focal or lateralizing defects 1. Encephalopathy due to acute bacterial pneumonia superimposed on COVID-19 infection. 2. Acute bacterial pneumonia superimposed on COVID-19 infection. CXR with left basilar opacity. Treated 3. Atrial fibrillation with RVR. Comfort goals 4. left pleural effusion. 4. CAD, HTN. Comfort goals Dispo: Comfort careinitial goal is SNF, but with her respiratory status changing, it appears she may be moving more into an active dying phase Arpita Bosch is an 86 yo female with PMH CAD s/p LCx stent, dementia, HTN, HLD, CKD3, osteoporosis, chronic ITP presenting with altered mental status. 01/27: Patient appeared comfortable in room. Minimally responsive to stimuli. Patient unable to provide HPI. 01/26: Patient comfortable upon arrival, but experienced agitation upon awakening. Patient unable to communicate at visit. No meaningful HPI. Patient remains responsive to touch and voice. 1430 Discussed goals of care, diagnosis, and prognosis with Tyree () and Keegan (brother in law). Both family members are requesting that patient be transitioned to comfort care measures. They are requesting establishment of hospice care in a nursing facility if patient is discharged from the hospital. Review of Systems Review of Systems: As per HPI Physical Exam Physical Exam: Gen: NAD, not responsive to verbal or sensory cues, AO x ?, comfortable HEENT: Mouth visibly dry w/ appreciable cracking of tongue Resp: Labored, no wheezing/rhonchi/rales, CTAB CV:Irregular-irregular rhythm, rate controlled (105s @ 1000 ), normal S1/S2, no M/R/G Abd: Soft, non-distended, no TTP, normoactive bowels, no masses Extr: 2+ dp bilaterally, no edema Results & Data Results & Data ([place]) Vital Signs (Past 12 Hours) Vital Signs O2 Del Method 01/26/22 21:00 Room Air Resident Activity Tracking Resident Involvement: Resident Care Provided Care Provided: Adult Hospital Medicine (1) Dementia Alzheimer's disease onset: late-onset Dementia behavioral disturbance: with b ehavioral disturbance Dementia type: Alzheimer's disease Qualified Code(s): G30.1 - Alzheimer's disease with late onset; F02.81 - Dementia in other diseases classified elsewhere with behavioral disturbance (2) Hypertension Hypertension type: essential hypertension Qualified Code(s): I10 - Essential (primary) hypertension
--- NOTE | 2022-01-27 17:37 | Billing Data ---
Date of Service January 27, 2022 Coding Level of Care Code 05086 Subseq Hosp Care Lvl 1
[2022-01-28] MEDS: LORazepam 0.5 MG in SYRINGE 0 ML IV PRN ×2 (00:14→04:29)
[2022-01-28] MEDS: GLYCOPYRROLATE 0.2 MG/ML VIAL IV PRN (00:14)
[2022-01-28 02:13] LABS: A calco-baum cmplx NotReported Not Detected (NotDetected); Bact fragilis Not Reported Not Detected (NotDetected); C auris Not Reported Not Detected (NotDetected); Calbicans Not Reported Not Detected (NotDetected); Candida glabrata Not Reported Not Detected (NotDetected); Candida krusei Not Reported Not Detected (NotDetected); Cneoformans/gatti Not Reported Not Detected (NotDetected); Cparapsilosis Not Reported Not Detected (NotDetected); Ctropicalis Not Reported Not Detected (NotDetected); E cloacae compx Not Reported Not Detected (NotDetected); Efaecalis Not Reported Not Detected (NotDetected); Efaecium Not Reported Not Detected (NotDetected); Enterobacterales Not Reported Not Detected (NotDetected); Escherichia coli Not Reported Not Detected (NotDetected); H influenzae Not Reported Not Detected (NotDetected); K aerogenes Not Reported Not Detected (NotDetected); Koxytoca Not Reported Not Detected (NotDetected); Kpneumoniae grp Not Reported Not Detected (NotDetected); Lmonocyt Not Reported Not Detected (NotDetected); N meningitidis Not Reported Not Detected (NotDetected); P aeruginosa Not Reported Not Detected (NotDetected); Proteus spp Not Reported Not Detected (NotDetected); Salmonella spp Not Reported Not Detected (NotDetected); Smarcescens Not Reported Not Detected (NotDetected); Staph lugdunensis Not Reported Not Detected (NotDetected); Staph spp. Not Reported DETECTED (NotDetected); Staphaureus Not Reported Not Detected (NotDetected); Staphepi Not Reported DETECTED (NotDetected); Staphylococcus epidermidis DETECTED (NotDetected); Staphylococcus spp. DETECTED (NotDetected); Stenmaltophilia Not Reported Not Detected (NotDetected); Strep agal(GrpB) Not Reported Not Detected (NotDetected); Strep pneum Not Reported Not Detected (NotDetected); Strep pyog (GrpA) Not Reported Not Detected (NotDetected); Strep spp Not Reported Not Detected (NotDetected); mecAC Resistant Gene DETECTED (NotDetected)
[2022-01-28] MEDS: MoRPHine SULFATE 2 MG/ML CARP IV PRN ×4 (02:34→22:46)
[2022-01-28] MEDS: ACETAMINOPHEN 1000 MG/100 ML IV IV SCH ×2 (05:58→13:47)
--- NOTE | 2022-01-28 08:05 | Hospitalist Progress Note ---
Date of Service January 28, 2022 Assessment & Plan (1) Atrial fibrillation with RVR: (2) Dementia: (3) Vitamin D deficiency: (4) Chronic ITP (idiopathic thrombocytopenia): (5) CKD (chronic kidney disease), stage III: (6) Hypertension: (7) Carotid artery disease: (8) Pneumonia: Cindi Bosch is an 86 year old female with PMH CAD s/p LCx stent, dementia, HTN, HLD, CKD3, osteoporosis, chronic ITP presenting with altered mental status. 01/26 Per family decision, patient was transitioned to comfort measures only. Her NGT was removed, thus preventing her form receiving PO medications. Family expressed that they only wish for her to receive additional medications if it will provide comfort to her or prevent her from experiencing pain. Patient is DNR/DNI. Orders have been placed and case management has been consulted for recommendations regarding outpatient hospice when appropriate. --- 01/28 Continue comfort measures Atrial fibrillation with RVR ([place], [facility]VASC 2) - ED: IV diltiazem, IV Lopressor x1 in with improvement from 140s to 110s - 01/13: Repeat EKG on showed continue Afib w/ RVR, received one liter LR @50mL/hr. - 01/13: Increased metoprolol IV from 5mg to 10mg Q6 on. - 01/14: Patient still remained in Afib with RVR with the rates 120-140's, ordered a 15mg Cardizem 15mg IV push at that time. - 01/14: Started Cardizem drip on with telemetry monitoring - 01/16: IV Cardizem d/c, began PO Cardizem 30 mg TID and metoprolol 50 mg BID 01/16 - 01/17: Transferred to med/surg w/o telemetry 01/17, Increased Cardizem to 30 mg Q6h - 01/18: Started prophylactic anticoagulation, discuss therapeutic dosing w/ family (attempted 01/19 PM and 01/20 AM, no answer) - 01/19: Required Lopressor 5 mg X 3 overnight, remains elevated AM, Refusing PO, started Diltiazen IV d/t RVR, Started IV Cardizem drip AM d/t HR 120-130 - 01/20: Rates 80-90 on Cardizem drip, Added LR at 100 ml/hr - 01/21: IV Cardizem drip and Unasyn, Rates 120-130, Cardizem to 15 mg/hr, NG Tube Feeding - discussed with family and placed NGT, LR 100 ml/hr, 500cc bolus LR @ 1430 - 01/22: IV Cardizem drip ongoing, rates 90-110 overnight, nursing notified to decrease to 10 mg from 15 mg, repleted K, 10 mEq x 4, Ongoing NGT, Ongoing LR @ 100 mL/h - 01/23: Started Eliquis 2.5 mg PO BID (crush and provide through NGT), received dose of Digoxin 125 mcg, Cardizem discontinued, Metoprolol 25 mg PO BID reinstated, PM d/t elevated BP and HR, restarted Cardizem @ 5 mg, gave IV Lopressor 5 mg. Home Lisinopril re-started 01/23. - 01/24 Cardizem discontinued, Metoprolol increased to 50 mg BID, BP/HR elevated in PM, given dose of Digoxin 125 mcg IV - 01/25 Increased Metoprolol to 75 mg BID per Cardiology recommendation, BP/HR elevation occurring w/ agitation Acutely altered mental status in setting of chronic cognitive decline - Encephalopathy likely secondary to acute infection, CT negative for acute event - ECHO (2021): EF 50-55%, no significant changes from 2014 - 01/12 Ammonia levels normal - 01/13 Patient's mental status and lung function improved - 01/17 Received Seroquel overnight d/t agitation - 01/18 Repeat speech eval requested, NPO advised 01/19 - 01/19 Transitioned to IV medications d/t medication refusal/agitation/NPO - 01/26 Appreciate Cardiology's recommendations. Comfort care only chosen by family moving forward. Acute bacterial pneumonia superimposed on COVID - CXR showed left basilar opacity, small left pleural effusion, cardiomegaly with mild pulmonary edema - Ceftriaxone, azithromycin given in ED for suspected superimposed bacterial pneumonia on COVID-19 infection with procalcitonin 8, questionable contribution from aspiration given pt's recent AMS and functional decline - Elevated troponin likely d/t demand ischemia from acute infection - 01/12: Started on azithromycin, switched ceftriaxone to Unasyn to better cover anaerobes for possible aspiration as above, MRSA nares neg - 01/15 Azithromycin and Unasyn stopped due to the patient clinical improvement, Continue DuoNeb PRN - 01/16 Steroid taper complete, d/c Remdesivir 100mg IV QD- pt received 4 doses, began Augmentin 875 mg BID - 01/19 Transitioned to IV Unasyn d/t NPO (per speech evaluation) - 01/20 Continue IV Unasyn, Leukocytosis 13.45 - 01/21 Leukocytosis 11.02, Repeat CXR ---> Improvement of left basilar opacity, favors resolving pneumonia, follow q 2-3 days - 01/22 Leukocytosis resolved - 01/23 discontinue IV Unasyn, leukocytosis resolved, repeat CXR in AM - 01/24 CXR indicating increased left pleural effusions w/ basilar opacity, decreased LR by half to 50 ml/hr - 01/26 Brief fever overnight, leukocytosis in AM, CXR showing small left pleural effusion with increase in left mid and lower lung opacity which favors pneumonia, breathing remains non-labored and patient is oxygenating well on room air --- Breathing mildly labored, patient oxygenating well on room air. COVID-19 infection - CXR findings as above - d/c remdesivir, 4 total doses given - d/c dexamethasone taper - On admission required 6L NC. Now on RA. Thrombocytopenia - Resolved, following Chronic Conditions * CAD s/p LCx stent - Hold lisinopril, metoprolol, pravastatin * HTN - Hold lisinopril 20 mg daily (restarted 01/23) * HLD - Hold Pravastatin * CKD3 - Hold renal dosing for medication * Vitamin D deficiency - Hold FEN: NPO Code status: DNR/DNI, comfort care DVT ppx: Held Eliquis Isolation: COVID + () PT/OT: Ordered Dispo: Anticipate remainder of care in hospital CM: Following Admission and Anticipated Discharge Date Admission Date: January 11, 2022 Supervising Physician Co-Signing Physician Notes I personally examined the patient and verified all [place] points of history and exam, discussed case, and agree with decision making with Dr Saavedra No meaningful HPI review of systems obtainable. ongoing comfort care Vitals noted, no distress, breathing unlabored but is rather shallow and at times gasping at times appearing a bit agonal no accessory muscle use good effort. No focal or lateralizing defects 1. Encephalopathy due to acute bacterial pneumonia superimposed on COVID-19 infection. 2. Acute bacterial pneumonia superimposed on COVID-19 infection. CXR with left basilar opacity. Treated 3. Atrial fibrillation with RVR. Comfort goals 4. left pleural effusion. 4. CAD, HTN. Comfort goals Dispo: Comfort careinitial goal is SNF, but with her respiratory status changing, it appears she may be moving more into an active dying phase Arpita Bosch is an 86 yo female with PMH CAD s/p LCx stent, dementia, HTN, HLD, CKD3, osteoporosis, chronic ITP presenting with altered mental status. 01/28: Patient appeared comfortable, not responsive to stimuli. No HPI. 01/27: Patient appeared comfortable in room. Minimally responsive to stimuli. Patient unable to provide HPI. Review of Systems Review of Systems: As per HPI Physical Exam Physical Exam: Gen: NAD, not responsive to verbal or sensory cues, AO x ?, comfortable HEENT: Mouth visibly dry w/ appreciable cracking of tongue Resp: agonal breathing, otherwise CTAB CV:Irregular-irregular rhythm,, normal S1/S2, no M/R/G Abd: Soft, non-distended, no TTP, normoactive bowels, no masses Extr: 2+ dp bilaterally, no edema Results & Data Results & Data ([facility]) Vital Signs (Past 12 Hours) Vital Signs Temp Pulse Resp BP Pulse Ox O2 Del Method 01/28/22 07:22 36.4 C L 114 H 10 L 113/67 93 Room Air 01/27/22 21:45 Room Air (1) Dementia Alzheimer's disease onset: late-onset Dementia behavioral disturbance: with behavioral disturbance Dementia type: Alzheimer's disease Qualified Code(s): G30.1 - Alzheimer's disease with late onset; F02.81 - Dementia in other diseases classified elsewhere with behavioral disturbance (2) Hypertension Hypertension type: essential hypertension Qualified Code(s): I10 - Essential (primary) hypertension
--- NOTE | 2022-01-28 18:28 | Billing Data ---
Date of Service January 28, 2022 Coding Level of Care Code 87562 Subseq Hosp Care Lvl 1
--- NOTE | 2022-01-28 18:28 | Billing Data ---
Date of Service January 28, 2022 Coding Level of Care Code 20191 Subseq Hosp Care Lvl 1
[2022-01-29] MEDS: LORazepam 0.5 MG in SYRINGE 0 ML IV PRN ×2 (01:39→15:58)
[2022-01-29] MEDS: MoRPHine SULFATE 2 MG/ML CARP IV PRN ×3 (05:32→23:22)
--- NOTE | 2022-01-29 06:59 | Hospitalist Progress Note ---
Date of Service January 29, 2022 Assessment & Plan (1) Atrial fibrillation with RVR: (2) Dementia: (3) Vitamin D deficiency: (4) Chronic ITP (idiopathic thrombocytopenia): (5) CKD (chronic kidney disease), stage III: (6) Hypertension: (7) Carotid artery disease: (8) Pneumonia: Cindi Bosch is an 86 year old female with PMH CAD s/p LCx stent, dementia, HTN, HLD, CKD3, osteoporosis, chronic ITP presenting with altered mental status. 01/26 Per family decision, patient was transitioned to comfort measures only. Her NGT was removed, thus preventing her form receiving PO medications. Family expressed that they only wish for her to receive additional medications if it will provide comfort to her or prevent her from experiencing pain. Patient is DNR/DNI. Orders have been placed and case management has been consulted for recommendations regarding outpatient hospice when appropriate. --- 01/29 Continue comfort measures Atrial fibrillation with RVR (New Onset, CHADVASC 2) - ED: IV diltiazem, IV Lopressor x1 in with improvement from 140s to 110s - 01/13: Repeat EKG on showed continue Afib w/ RVR, received one liter LR @50mL/hr. - 01/13: Increased metoprolol IV from 5mg to 10mg Q6 on. - 01/14: Patient still remained in Afib with RVR with the rates 120-140's, ordered a 15mg Cardizem 15mg IV push at that time. - 01/14: Started Cardizem drip on with telemetry monitoring - 01/16: IV Cardizem d/c, began PO Cardizem 30 mg TID and metoprolol 50 mg BID 01/16 - 01/17: Transferred to med/surg w/o telemetry 01/17, Increased Cardizem to 30 mg Q6h - 01/18: Started prophylactic anticoagulation, discuss therapeutic dosing w/ family (attempted 01/19 PM and 01/20 AM, no answer) - 01/19: Required Lopressor 5 mg X 3 overnight, remains elevated AM, Refusing PO, started Diltiazen IV d/t RVR, Started IV Cardizem drip AM d/t HR 120-130 - 01/20: Rates 80-90 on Cardizem drip, Added LR at 100 ml/hr - 01/21: IV Cardizem drip and Unasyn, Rates 120-130, Cardizem to 15 mg/hr, NG Tube Feeding - discussed with family and placed NGT, LR 100 ml/hr, 500cc bolus LR @ 1430 - 01/22: IV Cardizem drip ongoing, rates 90-110 overnight, nursing notified to decrease to 10 mg from 15 mg, repleted K, 10 mEq x 4, Ongoing NGT, Ongoing LR @ 100 mL/h - 01/23: Started Eliquis 2.5 mg PO BID (crush and provide through NGT), received dose of Digoxin 125 mcg, Cardizem discontinued, Metoprolol 25 mg PO BID reinstated, PM d/t elevated BP and HR, restarted Cardizem @ 5 mg, gave IV Lopressor 5 mg. Home Lisinopril re-started 01/23. - 01/24 Cardizem discontinued, Metoprolol increased to 50 mg BID, BP/HR elevated in PM, given dose of Digoxin 125 mcg IV - 01/25 Increased Metoprolol to 75 mg BID per Cardiology recommendation, BP/HR elevation occurring w/ agitation Acutely altered mental status in setting of chronic cognitive decline - Encephalopathy likely secondary to acute infection, CT negative for acute event - ECHO (2021): EF 50-55%, no significant changes from 2014 - 01/12 Ammonia levels normal - 01/13 Patient's mental status and lung function improved - 01/17 Received Seroquel overnight d/t agitation - 01/18 Repeat speech eval requested, NPO advised 01/19 - 01/19 Transitioned to IV medications d/t medication refusal/agitation/NPO - 01/26 Appreciate Cardiology's recommendations. Comfort care only chosen by family moving forward. Acute bacterial pneumonia superimposed on COVID - CXR showed left basilar opacity, small left pleural effusion, cardiomegaly with mild pulmonary edema - Ceftriaxone, azithromycin given in ED for suspected superimposed bacterial pneumonia on COVID-19 infection with procalcitonin 8, questionable contribution from aspiration given pt's recent AMS and functional decline - Elevated troponin likely d/t demand ischemia from acute infection - 01/12: Started on azithromycin, switched ceftriaxone to Unasyn to better cover anaerobes for possible aspiration as above, MRSA nares neg - 01/15 Azithromycin and Unasyn stopped due to the patient clinical improvement, Continue DuoNeb PRN - 01/16 Steroid taper complete, d/c Remdesivir 100mg IV QD- pt received 4 doses, began Augmentin 875 mg BID - 01/19 Transitioned to IV Unasyn d/t NPO (per speech evaluation) - 01/20 Continue IV Unasyn, Leukocytosis 13.45 - 01/21 Leukocytosis 11.02, Repeat CXR ---> Improvement of left basilar opacity, favors resolving pneumonia, follow q 2-3 days - 01/22 Leukocytosis resolved - 01/23 discontinue IV Unasyn, leukocytosis resolved, repeat CXR in AM - 01/24 CXR indicating increased left pleural effusions w/ basilar opacity, decreased LR by half to 50 ml/hr - 01/26 Brief fever overnight, leukocytosis in AM, CXR showing small left pleural effusion with increase in left mid and lower lung opacity which favors pneumonia, breathing remains non-labored and patient is oxygenating well on room air --- Breathing improved, patient oxygenating well on room air. COVID-19 infection - CXR findings as above - d/c remdesivir, 4 total doses given - d/c dexamethasone taper - On admission required 6L NC. Now on RA. Thrombocytopenia - Resolved, following Chronic Conditions * CAD s/p LCx stent - Hold lisinopril, metoprolol, pravastatin * HTN - Hold lisinopril 20 mg daily (restarted 01/23) * HLD - Hold Pravastatin * CKD3 - Hold renal dosing for medication * Vitamin D deficiency - Hold FEN: NPO Code status: DNR/DNI, comfort care DVT ppx: None Isolation: Discontinued Dispo: Anticipate remainder of care in hospital CM: Following Admission and Anticipated Discharge Date Admission Date: January 11, 2022 Supervising Physician Co-Signing Physician Notes I personally examined the patient and verified all dubois points of history and exam, discussed case, and agree with decision making with Dr Saavedra No meaningful HPI review of systems obtainable. ongoing comfort care, appears peaceful today Vitals noted, no distress, breathing unlabored and more peaceful today no acc essory muscle use good effort. No focal or lateralizing defects 1. Encephalopathy due to acute bacterial pneumonia superimposed on COVID-19 infection. 2. Acute bacterial pneumonia superimposed on COVID-19 infection. CXR with left basilar opacity. Treated 3. Atrial fibrillation with RVR. Comfort goals 4. left pleural effusion. 4. CAD, HTN. Comfort goals Dispo: Comfort careinitial goal is SNF, last few days appeared that she might be moving into actively dying, today a bit more questionable. Continue to follow Subjective Danitza is an 86 yo female with PMH CAD s/p LCx stent, dementia, HTN, HLD, CKD3, osteoporosis, chronic ITP presenting with altered mental status. 01/29: Patient comfortable upon arrival. No response to verbal or tactile stimuli. No HPI. 01/28: Patient appeared comfortable, not responsive to stimuli. No HPI. Review of Systems Review of Systems: As per HPI Physical Exam Physical Exam: Gen: NAD, not responsive to verbal or sensory cues, comfortable Resp: non-labored, regular breaths, otherwise CTAB CV:Irregular-irregular rhythm,, normal S1/S2, no M/R/G Abd: Soft, non-distended, no TTP, normoactive bowels Results & Data Results & Data ([facility]) Vital Signs (Past 12 Hours) Vital Signs O2 Del Method 01/28/22 23:07 Room Air (1) Dementia Alzheimer's disease onset: late-onset Dementia behavioral disturbance: with behavioral disturbance Dementia type: Alzheimer's disease Qualified Code(s): G30.1 - Alzheimer's disease with late onset; F02.81 - Dementia in other diseases classified elsewhere with behavioral disturbance (2) Hypertension Hypertension type: essential hypertension Qualified Code(s): I10 - Essential (primary) hypertension
--- NOTE | 2022-01-29 14:35 | Billing Data ---
Date of Service January 29, 2022 Coding Level of Care Code 98267 Subseq Hosp Care Lvl 1
--- NOTE | 2022-01-30 07:05 | Hospitalist Progress Note ---
Date of Service January 30, 2022 Assessment & Plan (1) Atrial fibrillation with RVR: (2) Dementia: (3) Vitamin D deficiency: (4) Chronic ITP (idiopathic thrombocytopenia): (5) CKD (chronic kidney disease), stage III: (6) Hypertension: (7) Carotid artery disease: (8) Pneumonia: Cindi Bosch is an 86 year old female with PMH CAD s/p LCx stent, dementia, HTN, HLD, CKD3, osteoporosis, chronic ITP presenting with altered mental status. Per family decision, patient was transitioned to comfort measures only. Her NGT was removed, thus preventing her form receiving PO medications. Family expressed that they only wish for her to receive additional medications if it will provide comfort to her or prevent her from experiencing pain. Patient is DNR/DNI. Orders have been placed and case management has been consulted for recommendations regarding outpatient hospice when appropriate. Atrial fibrillation with RVR (New Onset, CHADVASC 2) - Plan for comfort measures Acutely altered mental status in setting of chronic cognitive decline - Encephalopathy likely secondary to acute infection, CT negative for acute event - Comfort care only chosen by family moving forward. Acute bacterial pneumonia superimposed on COVID - CXR showed left basilar opacity, small left pleural effusion, cardiomegaly with mild pulmonary edema -Breathing improved, patient oxygenating well on room air. COVID-19 infection - CXR findings as above - d/c remdesivir, 4 total doses given - d/c dexamethasone taper - On admission required 6L NC. Now on RA. Thrombocytopenia - Resolved Chronic Conditions * CAD s/p LCx stent - Hold lisinopril, metoprolol, pravastatin * HTN - Hold lisinopril 20 mg daily (restarted 01/23) * HLD - Hold Pravastatin * CKD3 - Hold renal dosing for medication * Vitamin D deficiency - Hold FEN: NPO Code status: DNR/DNI, comfort care DVT ppx: None Isolation: Discontinued Dispo: Anticipate remainder of care in hospital CM: Following Admission and Anticipated Discharge Date Admission Date: January 11, 2022 Supervising Physician Co-Signing Physician Notes I personally examined the patient and verified all dubois points of history and exam, discussed case, and agree with decision making with Dr Powell No meaningful HPI review of systems obtainable. ongoing comfort care, again appears peaceful today Vitals noted, no distress, breathing unlabored and more peaceful today no accessory muscle use good effort. no pallor 1. Encephalopathy due to acute bacterial pneumonia superimposed on COVID-19 infection. 2. Acute bacterial pneumonia superimposed on COVID-19 infection. CXR with l eft basilar opacity. Treated 3. Atrial fibrillation with RVR. Comfort goals 4. left pleural effusion. 4. CAD, HTN. Comfort goals Dispo: Comfort careinitial goal was SNF, last few days appeared that she might be moving into actively dying, today a bit more questionable. Continue to follow Subjective Danitza is an 86 yo female with PMH CAD s/p LCx stent, dementia, HTN, HLD, CKD3, osteoporosis, chronic ITP presenting with altered mental status. Pt appears comfortable, did open eyes but otherwise non responsive. Review of Systems Review of Systems: Unobtainable due to cognitive status Physical Exam Physical Exam: Gen: NAD, not responsive to verbal or sensory cues, comfortable Resp: non-labored, regular breaths, otherwise CTAB CV:Irregular-irregular rhythm,, normal S1/S2, no M/R/G Abd: Soft, non-distended, no TTP, normoactive bowels Results & Data Results & Data ([facility]) Vital Signs (Past 12 Hours) Vital Signs O2 Del Method 01/29/22 20:50 Room Air Resident Activity Tracking Resident Involvement: Resident Care Provided Care Provided: [facility] Medicine (1) Dementia Alzheimer's disease onset: late-onset Dementia behavioral disturbance: with behavioral disturbance Dementia type: Alzheimer's disease Qualified Code(s): G30.1 - Alzheimer's disease with late onset; F02.81 - Dementia in other diseases classified elsewhere with behavioral disturbance (2) Hypertension Hypertension type: essential hypertension Qualified Code(s): I10 - Essential (primary) hypertension
[2022-01-30] MEDS: MoRPHine SULFATE 2 MG/ML CARP IV PRN ×3 (07:30→17:53)
[2022-01-30] MEDS: LORazepam 0.5 MG in SYRINGE 0 ML IV PRN ×2 (10:30→16:19)
[2022-01-30] MEDS: GLYCOPYRROLATE 0.2 MG/ML VIAL IV PRN (13:40)
--- NOTE | 2022-01-30 16:59 | Billing Data ---
Date of Service January 30, 2022 Coding Level of Care Code 72158 Subseq Hosp Care Lvl 1
[2022-01-31] MEDS: MoRPHine SULFATE 2 MG/ML CARP IV PRN ×2 (00:36→14:59)
--- NOTE | 2022-01-31 08:07 | Hospitalist Progress Note ---
Date of Service January 31, 2022 Assessment & Plan (1) Atrial fibrillation with RVR: (2) Dementia: (3) Vitamin D deficiency: (4) Chronic ITP (idiopathic thrombocytopenia): (5) CKD (chronic kidney disease), stage III: (6) Hypertension: (7) Carotid artery disease: (8) Pneumonia: Cindi Bosch is an 86 year old female with PMH CAD s/p LCx stent, dementia, HTN, HLD, CKD3, osteoporosis, chronic ITP presenting with altered mental status. Per family decision, patient was transitioned to comfort measures only. Her NGT was removed, thus preventing her form receiving PO medications. Family expressed that they only wish for her to receive additional medications if it will provide comfort to her or prevent her from experiencing pain. Patient is DNR/DNI. Orders have been placed and case management has been consulted for recommendations regarding outpatient hospice when appropriate. Atrial fibrillation with RVR (New Onset, CHADVASC 2) - Plan for comfort measures Acutely altered mental status in setting of chronic cognitive decline - Encephalopathy likely secondary to acute infection, CT negative for acute event - Comfort care only chosen by family moving forward. Acute bacterial pneumonia superimposed on COVID - CXR showed left basilar opacity, small left pleural effusion, cardiomegaly with mild pulmonary edema -Breathing improved, patient oxygenating well on room air. COVID-19 infection - CXR findings as above - d/c remdesivir, 4 total doses given - d/c dexamethasone taper - On admission required 6L NC. Now on RA. Thrombocytopenia - Resolved Chronic Conditions * CAD s/p LCx stent - Hold lisinopril, metoprolol, pravastatin * HTN - Hold lisinopril 20 mg daily (restarted 01/23) * HLD - Hold Pravastatin * CKD3 - Hold renal dosing for medication * Vitamin D deficiency - Hold FEN: NPO Code status: DNR/DNI, comfort care DVT ppx: None Isolation: Discontinued Dispo: Anticipate remainder of care in hospital CM: Following Admission and Anticipated Discharge Date Admission Date: January 11, 2022 Supervising Physician Co-Signing Physician Notes I personally examined the patient and verified all dubois points of history and exam, discussed case, and agree with decision making with Dr Powell No meaningful HPI review of systems obtainable. Laying in bed today, breathing easily and appearing peaceful and comfortable Vitals noted, no distress, breathing unlabored and peaceful today no accessory muscle use good effort. no pallor 1. Encephalopathy due to acute bacterial pneumonia superimposed on COVID-19 infection. 2. Acute bacterial pneumonia superimposed on COVID-19 infection. CXR with left basilar opacity. Treated 3. Atrial fibrillation with RVR. Comfort goals 4. left pleural effusion. 4. CAD, HTN. Comfort goals Dispo: Comfort careinitial goal was SNF, but she appears closer and actively dyinggiven that she was not familiar with any SNF environment, anticipate her passing here Arpita Bosch is an 86 yo female with PMH CAD s/p LCx stent, dementia, HTN, HLD, CKD3, osteoporosis, chronic ITP presenting with altered mental status. Pt appears comfortable, did open eyes but otherwise non responsive. Review of Systems Review of Systems: As per HPI Physical Exam Physical Exam: Gen: NAD, not responsive to verbal or sensory cues, comfortable Resp: non-labored, regular breaths, otherwise CTAB CV:Irregular-irregular rhythm,, normal S1/S2, no M/R/G Abd: Soft, non-distended, no TTP, normoactive bowels Results & Data Results & Data ([facility]) Vital Signs (Past 12 Hours) Vital Signs Temp Pulse Resp BP Pulse Ox O2 Del Method 01/31/22 07:18 37.0 C 98 H 12 126/64 95 Room Air 01/30/22 21:00 Room Air Resident Activity Tracking Resident Involvement: Resident Care Provided Care Provided: Adult [facility] Medicine (1) Dementia Alzheimer's disease onset: late-onset Dementia behavioral disturbance: with behavioral disturbance Dementia type: Alzheimer's disease Qualified Code(s): G30.1 - Alzheimer's disease with late onset; F02.81 - Dementia in other diseases classified elsewhere with behavioral disturbance (2) Hypertension Hypertension type: essential hypertension Qualified Code(s): I10 - Essential (primary) hypertension
--- NOTE | 2022-01-31 10:32 | Billing Data ---
Date of Service January 31, 2022 Coding Level of Care Code 04036 Subseq Hosp Care Lvl 1
[2022-02-01] MEDS: MoRPHine SULFATE 2 MG/ML CARP IV PRN ×2 (06:21→12:14)
--- NOTE | 2022-02-01 07:13 | Hospitalist Progress Note ---
Date of Service February 01, 2022 Assessment & Plan (1) Atrial fibrillation with RVR: Plan: Danitza is an 86 year old female with PMH CAD s/p LCx stent, dementia, HTN, HLD, CKD3, osteoporosis, chronic ITP presenting with altered mental status. Per family decision, patient was transitioned to comfort measures only. Her NGT was removed, thus preventing her form receiving PO medications. Family expressed that they only wish for her to receive additional medications if it will provide comfort to her or prevent her from experiencing pain. Patient transitioned to comfort care. Anticipate passing here. Atrial fibrillation with RVR (New Onset, CHADVASC 2) - Plan for comfort measures Acutely altered mental status in setting of chronic cognitive decline - Encephalopathy likely secondary to acute infection, CT negative for acute event - Comfort care only chosen by family moving forward. Acute bacterial pneumonia superimposed on COVID - CXR showed left basilar opacity, small left pleural effusion, cardiomegaly with mild pulmonary edema - Treated COVID-19 infection - CXR findings as above - d/c remdesivir, 4 total doses given - d/c dexamethasone taper - On admission required 6L NC. Now on RA. Thrombocytopenia - Resolved CAD s/p LCx stent HTN HLD CKD3 Vitamin D deficiency (2) Dementia: (3) Vitamin D deficiency: (4) Chronic ITP (idiopathic thrombocytopenia): (5) CKD (chronic kidney disease), stage III: (6) Hypertension: (7) Carotid artery disease: (8) Pneumonia: Plan FEN: NPO Code status: DNR/DNI, comfort care only DVT ppx: None Isolation: Discontinued Dispo: Could consider outpatient hospice, but anticipate remainder of care in hospital CM: Following Admission and Anticipated Discharge Date Admission Date: January 11, 2022 Supervising Physician Co-Signing Physician Notes Resident Physician Supervision Note: I independently interviewed and examined the patient and verified the dubois history and physical, reviewed labs and image studies and agree with resident findings and care plan. Subjective Danitza is an 86 year old female with PMH CAD s/p LCx stent, dementia, HTN, HLD, CKD3, osteoporosis, chronic ITP presenting with altered mental status. She is currently comfort measures only. Pt appears comfortable today. Her eyes open to my voice but she is unable to communicate. Physical Exam Constitutional: NAD. Tachycardic. Open mouthing breathing. Eyes: no conjunctival abnormality Respiratory: CTA bilaterally. No rhonchi, wheezing, or crackles. Non labored breathing. Cardiovascular: Regular rhythm. Tachycardic. No murmur noted. No LL edema. Skin: no rashes, warm and dry Results & Data Results & Data ([facility]) Vital Signs (Past 12 Hours) Vital Signs Temp Pulse Resp BP Pulse Ox O2 Del Method 02/01/22 07:08 36.8 C 128 H 12 116/71 97 Room Air 01/31/22 21:30 Room Air Resident Activity Tracking Resident Involvement: Resident Care Provided Care Provided: Adult Hospital Medicine (1) Dementia Alzheimer's disease onset: late-onset Dementia behavioral disturbance: with behavioral disturbance Dementia type: Alzheimer's disease Qualified Code(s): G30.1 - Alzheimer's disease with late onset; F02.81 - Dementia in other diseases classified elsewhere with behavioral disturbance (2) Hypertension Hypertension type: essential hypertension Qualified Code(s): I10 - Essential (primary) hypertension
[2022-02-01] MEDS: LORazepam 0.5 MG in SYRINGE 0 ML IV PRN ×2 (10:09→15:30)
[2022-02-02] MEDS: MoRPHine SULFATE 2 MG/ML CARP IV PRN ×2 (04:30→11:56)
--- NOTE | 2022-02-02 09:46 | Hospitalist Progress Note ---
Date of Service February 02, 2022 Assessment & Plan (1) Atrial fibrillation with RVR: Plan: Danitza is an 86 year old female with PMH CAD s/p LCx stent, dementia, HTN, HLD, CKD3, osteoporosis, chronic ITP presenting with altered mental status. Per family decision, patient was transitioned to comfort measures only. Her NGT was removed, thus preventing her form receiving PO medications. Family expressed that they only wish for her to receive additional medications if it will provide comfort to her or prevent her from experiencing pain. Patient transitioned to comfort care. Atrial fibrillation with RVR (New Onset, CHADVASC 2) - Plan for comfort measures Acutely altered mental status in setting of chronic cognitive decline - Encephalopathy likely secondary to acute infection, CT negative for acute event - Comfort care only chosen by family moving forward. Acute bacterial pneumonia superimposed on COVID - CXR showed left basilar opacity, small left pleural effusion, cardiomegaly with mild pulmonary edema - Treated COVID-19 infection - CXR findings as above - d/c remdesivir, 4 total doses given - d/c dexamethasone taper - On admission required 6L NC. Now on RA. Thrombocytopenia - Resolved CAD s/p LCx stent HTN HLD CKD3 Vitamin D deficiency (2) Dementia: (3) Vitamin D deficiency: (4) Chronic ITP (idiopathic thrombocytopenia): (5) CKD (chronic kidney disease), stage III: (6) Hypertension: (7) Carotid artery disease: (8) Pneumonia: Plan FEN: NPO Code status: DNR/DNI, comfort care only DVT ppx: None Isolation: Discontinued Dispo: D/t pt stability, family preferring outpatient hospice/facility if available CM: Following- pt has a bed for tomorrow at [facility], pt's family requesting CM to call other facilities as well Admission and Anticipated Discharge Date Admission Date: January 11, 2022 Supervising Physician Co-Signing Physician Notes Resident Physician Supervision Note: I independently interviewed and examined the patient and verified the dubois history and physical, reviewed labs and image studies and agree with resident findings and care plan. Subjective Danitza is an 86 year old female with PMH CAD s/p LCx stent, dementia, HTN, HLD, CKD3, osteoporosis, chronic ITP presenting with altered mental status. She is currently comfort measures only. Pt is not responsive this morning when I greeted her. Her eyes did not open while I spoke to her. Pt appeared comfortable lying in bed. Physical Exam Constitutional: NAD. Vitals WNL. Respiratory: CTA bilaterally. Apneic, irregular breathing pattern. Cardiovascular: Regular rhythm. Tachycardic. No murmur noted. Results & Data Results & Data ([facility]) Vital Signs (Past 12 Hours) Vital Signs Temp Pulse Resp BP Pulse Ox O2 Del Method 02/02/22 09:13 36.6 C 100 H 11 L 182/99 H 90 Room Air Resident Activity Tracking Resident Involvement: Resident Care Provided Care Provided: Adult Hospital Medicine (1) Dementia Alzheimer's disease onset: late-onset Dementia behavioral disturbance: with behavioral disturbance Dementia type: Alzheimer's disease Qualified Code(s): G30.1 - Alzheimer's disease with late onset; F02.81 - Dementia in other diseases classified elsewhere with behavioral disturbance (2) Hypertension Hypertension type: essential hypertension Qualified Code(s): I10 - Essential (primary) hypertension
[2022-02-03] MEDS: MoRPHine SULFATE 2 MG/ML CARP IV PRN ×3 (03:29→22:07)
[2022-02-03] MEDS: LORazepam 0.5 MG in SYRINGE 0 ML IV PRN ×2 (06:05→23:09)
--- NOTE | 2022-02-03 17:12 | Hospitalist Progress Note ---
Date of Service February 03, 2022 Assessment & Plan (1) Atrial fibrillation with RVR: Plan: Danitza is an 86 year old female with PMH CAD s/p LCx stent, dementia, HTN, HLD, CKD3, osteoporosis, chronic ITP presenting with altered mental status. Per family decision, patient was transitioned to comfort measures only. Her NGT was removed, thus preventing her form receiving PO medications. Family expressed that they only wish for her to receive additional medications if it will provide comfort to her or prevent her from experiencing pain. Patient transitioned to comfort care. Atrial fibrillation with RVR ([place], CHADVASC 2) - Plan for comfort measures Acutely altered mental status in setting of chronic cognitive decline - Encephalopathy likely secondary to acute infection, CT negative for acute event - Comfort care only chosen by family moving forward. Acute bacterial pneumonia superimposed on COVID - CXR showed left basilar opacity, small left pleural effusion, cardiomegaly with mild pulmonary edema - Treated COVID-19 infection - CXR findings as above - d/c remdesivir, 4 total doses given - d/c dexamethasone taper - On admission required 6L NC. Now on RA. Thrombocytopenia - Resolved CAD s/p LCx stent HTN HLD CKD3 Vitamin D deficiency (2) Dementia: (3) Vitamin D deficiency: (4) Chronic ITP (idiopathic thrombocytopenia): (5) CKD (chronic kidney disease), stage III: (6) Hypertension: (7) Carotid artery disease: (8) Pneumonia: Plan FEN: NPO Code status: DNR/DNI, comfort care only DVT ppx: None Isolation: Discontinued Dispo: D/t pt stability, family preferring outpatient hospice/facility if available CM: Following- pt may have bed at [facility] for tomorrow; they are reaching out to family to discuss Admission and Anticipated Discharge Date Admission Date: January 11, 2022 Supervising Physician Co-Signing Physician Notes Resident Physician Supervision Note: I independently interviewed and examined the patient and verified the dubois history and physical, reviewed labs and image studies and agree with resident findings and care plan. Subjective Pt seen this AM at bedside. Pt did not awake or respond to my voice. She appeared comfortable. Physical Exam Constitutional: NAD. Respiratory: Non labored breathing. Cardiovascular: Tachycardia. No murmurs heard. Psychiatric: Not alert to voice Results & Data Results & Data ([facility]) Vital Signs (Past 12 Hours) Vital Signs Temp Pulse Pulse Resp BP Pulse Ox O2 Del Method 02/03/22 10:03 36.3 C L 153 H 18 151/105 H 93 Room Air 02/03/22 07:47 36.8 C 128 H 14 157/121 H 97 Room Air Resident Activity Tracking Resident Involvement: Resident Care Provided Care Provided: Adult Hospital Medicine (1) Dementia Alzheimer's disease onset: late-onset Dementia behavioral disturbance: with behavioral disturbance Dementia type: Alzheimer's disease Qualified Code(s): G30.1 - Alzheimer's disease with late onset; F02.81 - Dementia in other diseases classified elsewhere with behavioral disturbance (2) Hypertension Hypertension type: essential hypertension Qualified Code(s): I10 - Essential (primary) hypertension
[2022-02-04] MEDS: GLYCOPYRROLATE 0.2 MG/ML VIAL IV PRN (02:46)
[2022-02-04] MEDS: MoRPHine SULFATE 2 MG/ML CARP IV PRN ×3 (02:47→12:30)
[2022-02-04] MEDS ORDERED: ATROPINE SULFATE 1% OP SOLN 5 ML BTL SL PRN (08:45)
--- NOTE | 2022-02-04 14:21 | Death Pronouncement Note ---
Date of Service February 04, 2022 Pronouncement Note Admission Date Admission Date: January 11, 2022 Date and Time of Date of : 02/04/22 Time of : 13:35 Contributing Factors (1) Atrial fibrillation with RVR: (2) Dementia: (3) Vitamin D deficiency: (4) Chronic ITP (idiopathic thrombocytopenia): (5) CKD (chronic kidney disease), stage III: (6) Hypertension: (7) Carotid artery disease: (8) Pneumonia: Hospital Course Hospital Course: Danitza is an 86 year old female with PMH CAD s/p LCx stent, dementia, HTN, HLD, CKD3, osteoporosis, chronic ITP presenting with altered mental status. 01/26 Per family decision, patient was transitioned to comfort measures only. Her NGT was removed, thus preventing her form receiving PO medications. Family expressed that they only wish for her to receive additional medications if it will provide comfort to her or prevent her from experiencing pain. Patient is DNR/DNI. Orders had been placed and case management had been consulted for recommendations regarding outpatient hospice if appropriate. Atrial fibrillation with RVR ([place]set, CHADVASC 2) - ED: IV diltiazem, IV Lopressor x1 in with improvement from 140s to 110s - 01/13: Repeat EKG on showed continue Afib w/ RVR, received one liter LR @50mL/hr. - 01/13: Increased metoprolol IV from 5mg to 10mg Q6 on. - 01/14: Patient still remained in Afib with RVR with the rates 120-140's, ordered a 15mg Cardizem 15mg IV push at that time. - 01/14: Started Cardizem drip on with telemetry monitoring - 01/16: IV Cardizem d/c, began PO Cardizem 30 mg TID and metoprolol 50 mg BID 01/16 - 01/17: Transferred to med/surg w/o telemetry 01/17, Increased Cardizem to 30 mg Q6h - 01/18: Started prophylactic anticoagulation, discuss therapeutic dosing w/ family (attempted 01/19 PM and 01/20 AM, no answer) - 01/19: Required Lopressor 5 mg X 3 overnight, remains elevated AM, Refusing PO, started Diltiazen IV d/t RVR, Started IV Cardizem drip AM d/t HR 120-130 - 01/20: Rates 80-90 on Cardizem drip, Added LR at 100 ml/hr - 01/21: IV Cardizem drip and Unasyn, Rates 120-130, Cardizem to 15 mg/hr, NG Tube Feeding - discussed with family and placed NGT, LR 100 ml/hr, 500cc bolus LR @ 1430 - 01/22: IV Cardizem drip ongoing, rates 90-110 overnight, nursing notified to decrease to 10 mg from 15 mg, repleted K, 10 mEq x 4, Ongoing NGT, Ongoing LR @ 100 mL/h - 01/23: Started Eliquis 2.5 mg PO BID (crush and provide through NGT), received dose of Digoxin 125 mcg, Cardizem discontinued, Metoprolol 25 mg PO BID reinstated, PM d/t elevated BP and HR, restarted Cardizem @ 5 mg, gave IV Lopressor 5 mg. Home Lisinopril re-started 01/23. - 01/24 Cardizem discontinued, Metoprolol increased to 50 mg BID, BP/HR elevated in PM, given dose of Digoxin 125 mcg IV - 01/25 Increased Metoprolol to 75 mg BID per Cardiology recommendation, BP/HR elevation occurring w/ agitation - 01/26 and onward- pt on comfort measures only Acutely altered mental status in setting of chronic cognitive decline - Encephalopathy likely secondary to acute infection, CT negative for acute event - ECHO (2021): EF 50-55%, no significant changes from 2014 - 01/12 Ammonia levels normal - 01/13 Patient's mental status and lung function improved - 01/17 Received Seroquel overnight d/t agitation - 01/18 Repeat speech eval requested, NPO advised 01/19 - 01/19 Transitioned to IV medications d/t medication refusal/agitation/NPO --- 01/26 Appreciate Cardiology's recommendations. Comfort care only chosen by family moving forward Acute bacterial pneumonia superimposed on COVID - CXR showed left basilar opacity, small left pleural effusion, cardiomegaly with mild pulmonary edema - Ceftriaxone, azithromycin given in ED for suspected superimposed bacterial pneumonia on COVID-19 infection with procalcitonin 8, questionable contribution from aspiration given pt's recent AMS and functional decline - Elevated troponin likely d/t demand ischemia from acute infection - 01/12: Started on azithromycin, switched ceftriaxone to Unasyn to better cover anaerobes for possible aspiration as above, MRSA nares neg - 01/15 Azithromycin and Unasyn stopped due to the patient clinical improvement, Continue DuoNeb PRN - 01/16 Steroid taper complete, d/c Remdesivir 100mg IV QD- pt received 4 doses, began Augmentin 875 mg BID - 01/19 Transitioned to IV Unasyn d/t NPO (per speech evaluation) - 01/20 Continue IV Unasyn, Leukocytosis 13.45 - 01/21 Leukocytosis 11.02, Repeat CXR ---> Improvement of left basilar opacity, favors resolving pneumonia, follow q 2-3 days - 01/22 Leukocytosis resolved - 01/23 discontinue IV Unasyn, leukocytosis resolved, repeat CXR in AM - 01/24 CXR indicating increased left pleural effusions w/ basilar opacity, decreased LR by half to 50 ml/hr --- 01/26 Brief fever overnight, leukocytosis in AM, CXR showingsmall left pleural effusion with increase in left mid and lower lung opacity which favors pneumonia, breathing remains non-labored and patient is oxygenating well on room air - 01/27 and forward: Treated. No further interventions COVID-19 infection - CXR findings as above - d/c remdesivir, 4 total doses given - d/c dexamethasone taper - On admission required 6L NC. Now on RA. Thrombocytopenia - Resolved Chronic Conditions- held medications for comfort measures * CAD s/p LCx stent- Hold lisinopril, metoprolol, pravastatin * HTN- Hold lisinopril 20 mg daily * HLD -Hold Pravastatin * CKD3- Hold renal dosing for medication * Vitamin D deficiency- Hold Summary Additional details: I was notified of pt's unresponsiveness by nursing at 1:28 PM on 02/04/2022. I went to assess the patient. I checked her pupillary reflex which was non responsive to light. I listened for lung sounds of which I did not hear any. No noticeable chest rise. There were no peripheral pulses. No heart sounds audible. I pronounced the patient at 1:35 PM on 02/04/2022. Additional Data Attending physician: Isaura Jeong MD Supervising Physician Co-Signing Physician Notes Resident Physician Supervision Note: I independently interviewed and examined the patient and verified the dubois history and physical, reviewed the chart and agree with resident findings. Seen this am and patient had grunting sounds from airway secretions. unable to around. comfortable. Resident Activity Tracking Resident Involvement: Resident Care Provided Care Provided: Adult Hospital Medicine
== END 2022-02-04 15:16 | disposition expired | DRG 871 ==
LOC: ED 16:35 → EDINP 21:26 → SUATTDRO 21:26 → 2E 22:50 → 3E 01-26 19:55